=== PATIENT | female | born 1980 | race African-American/Black ===

== ENCOUNTER 2016-09-22 12:58 | Emergency (ER) | payer OTHER ==
[~2016-09-22] VITALS: Ht 157.5 cm; Wt 75.0 kg
[~2016-09-22 12:58] MED LIST: BACT800T5 PO; CHOL50006 PO; DARU600 PO; GABA600T PO; HIV MEDS; INTE200T2 PO; LACT PO; RANI150 PO; RITO100 PO; ZITH250T PO; ZOFR4TAB3 SL; ZOLP5TAB3 PO
[2016-09-22 13:00] VITALS: BP 113/73; PULSE 93; RESP 14; TEMP 97.8; O2SAT 98
[2016-09-22] MEDS ORDERED: RESP: ALBUTEROL 2.5 MG/3 ML NEB (SCH) INH ONE (13:45)
[2016-09-22] MEDS ORDERED: predniSONE 20 MG TAB PO ONE (13:45)
--- NOTE | 2016-09-22 13:49 | PD ---
HPI Chief Complaint: Cold / Flu Symptoms Time Seen by Provider: 13:36 Travel History International Travel<30 days: No Contact w/Intl Traveler<30days: No Traveled to known affect area: No History of Present Illness HPI 36-year-old female presents to the emergency Department with complaint of nasal congestion, cough, wheezing times one week. Denies fever, chills, nausea, vomiting. Reports chest tightness and shortness of breath accompanied by cough exacerbations. Reports history of asthma as a child. Denies history of PE/ DVT. Denies recent travel, trauma, hospitalization, surgery. Denies leg edema. Denies hemoptysis. Reports green colored sputum. Reports throat irritation and bilateral ear pressure. History of pneumonia with hospitalization and intubation. Has tried Sudafed, allergy medication, and nasal spray with no relief of symptoms. No known aggravating or relieving factors. History of HIV. Currently takes medications for HIV. Denies other significant past medical history. Allergies to Phenergan. No other modifying factors or associated signs and symptoms. PFSH Past Medical History Asthma: Yes Autoimmune Disease: Yes (HIV) Cancer: No Cardiovascular Problems: No Diminished Hearing: No Endocrine: No Genitourinary: Yes (urosepsis) Immune Disorder: Yes Musculoskeletal: No Neurologic: Yes Psychiatric: No Reproductive: No Respiratory: Yes (ASTHMA) Immunizations Current: Yes ?: Not LMP: 08/2016 : 2 Para: 2 Tubal Ligation: Yes Past Surgical History Abdominal Surgery: Yes (laproscopic cholecystectomy 2009; 2 ) AICD: No Arteriovenous Shunt: No Section: Yes Cholecystectomy: Yes Insulin Pump: No Joint Replacement: No Pacemaker: No Other Surgery: Yes Social History Alcohol Use: Yes (occasionally drinks alcohol) Tobacco Use: No Substance Use: No Allergies-Medications (Allergen,Severity, Reaction): Coded Allergies: Phenergan (Verified Allergy, Severe, incoherent, 09/22/16) Reported Meds & Prescriptions Reported Meds & Active Scripts Active Doxycycline Hyclate 100 Mg Cap 100 Mg PO BID 10 Days Deltasone (Prednisone) 20 Mg Tab 40 Mg PO DAILY 4 Days start 09/23/2016 Proair Hfa 8.5 GM Inh (Albuterol Sulfate) 90 Mcg/Act Aer 2 Puff INH Q4-6H PRN 108 mcg/actuation Zofran ODT (Ondansetron HCl) 4 Mg Tab 4 Mg SL Q6H PRN FOR NAUSEA/VOMITING Zithromax Z-Abhi (Azithromycin) 250 Mg Tab 250 Mg PO DIRECTED 500 MG (2 TABLETS) PO ON DAY 1, THEN 250 MG (1 TABLET) PO ON DAYS 2 TO 5. Zofran ODT (Ondansetron HCl) 4 Mg Tab 4 Mg SL Q6H PRN FOR NAUSEA/VOMITING Bactrim Ds1 Tab 1 Tab Tab 1 Tab PO BID Zantac 150 Mg Tab (Ranitidine HCl) 150 Mg Tab 150 Mg PO BID 14 Days Acidophilu1 1 Tab Tab 1 Tab PO TID 7 Days Reported Vitamin D (Cholecalciferol) 5,000 Unit Tab 5,000 Unit PO DAILY Zolpidem Tartrate 5 Mg Tab 5 Mg PO HS Gabapentin 600 Mg Tab 600 Mg PO BID Prezista 600 Mg Tab (Darunavir) 600 Mg Tab 600 Mg PO ONCE Norvir (Ritonavir) 100 Mg Cap 100 Mg PO DAILY Intelence (Etravirine) 200 Mg Tab 200 Mg PO BIDPC [Hiv Meds] Review of Systems Except as stated in HPI: all other systems reviewed are Neg Physical Exam Narrative GENERAL: Well-nourished, well-developed female patient, in no acute distress; afebrile, nontoxic-appearing SKIN: Warm and dry. HEAD: Atraumatic. Normocephalic. EYES: Pupils equal and round at 3 mm with brisk reaction. No scleral icterus. No injection or drainage. ENT: Mucosa pink and moist. No erythema or exudates. No uvular edema. No uvular , palatal, or tonsillar deviation. Airway patent. Nares without nasal blood, purulent drainage or septal hematoma. EARS: Bilateral pinnae and external canals appear within normal limits. Bilateral tympanic membranes without erythema, dullness or perforation. NECK: Trachea midline. No lymphadenopathy. CARDIOVASCULAR: Regular rate and rhythm. No murmur appreciated. RESPIRATORY: No accessory muscle use. Lungs with Wheezing throughout to auscultation. Breath sounds equal bilaterally. No retractions or tachypnea. No Audible wheezing noted. GASTROINTESTINAL: Abdomen soft, non-tender, nondistended. Hepatic and splenic margins not palpable. Bowel sounds are active 4 quadrants. MUSCULOSKELETAL: No obvious deformities. No clubbing. No cyanosis. No edema. NEUROLOGICAL: Awake and alert. Oriented 3. No obvious cranial nerve deficits. Motor grossly within normal limits. Normal speech. Moves all extremities. 5/5 strength to all extremities. PSYCHIATRIC: Appropriate mood and affect; insight and judgment normal. Data Data Last Documented VS Vital Signs Date Time Temp Pulse Resp B/P Pulse Ox O2 Delivery O2 Flow Rate FiO2 09/22/16 13:00 97.8 93 14 113/73 98 Orders Chest, Single Ap (09/22/16 13:35) Prednisone (Deltasone) (09/22/16 13:45) Albuterol Neb (Albuterol Neb) (09/22/16 13:45) [facility] Medical Decision Making Medical Screen Exam Complete: Yes Emergency Medical Condition: Yes Medical Record Reviewed: Yes Differential Diagnosis Acute bronchitis, viral illness, asthma exacerbation, pneumonia, sinusitis, less likely PE Narrative Course 36-year-old female physical exam consistent with acute bronchitis. Diffuse wheezing on auscultation of bilateral lung franco. Patient is in no acute distress and her oxygen saturation is 98% on room air. No retractions or tachypnea. No audible wheezing. She does report chest tightness and shortness of breath. The patient denies history of PE or DVT; denies recent surgery or trauma, hemoptysis, exogenous estrogen and leg edema. The patient has no present criteria for pulmonary embolism; using the PERC rule for pulmonary embolism there is no need for further workup for PE. Has history of pneumonia with intubation secondary to delay of patient seeking care. She is afebrile and nontoxic-appearing. She denies fever, chills, nausea, vomiting home. Vital signs stable. Chest x-ray ordered. Albuterol nebulizer x1 and prednisone ordered. 1505: Chest x-ray with no acute findings. Patient reports improvement in symptoms. She denies chest tightness or shortness of breath at this time. Lungs are clear and equal bilaterally. Doxycycline, Tessalon Perles, pro-air inhaler, Deltasone prescribed for home. Patient is medically cleared and stable for discharge. Discussed reasons to return to the emergency department. Instructed patient to follow up with primary care provider. Patient agrees with treatment plan. The patients vital signs are stable and the patient is stable for outpatient follow-up and treatment. Patient discharged home, stable and in no acute distress. Diagnosis Primary Impression: Bronchitis Referrals: Primary Care Physician Patient Instructions: Acute Bronchitis (ED), General Instructions Departure Forms: Tests/Procedures, Work Release Enter return to work date: Sep 24, 2016 Additional Instructions: Use albuterol inhaler as needed for shortness of breath and wheezing Take oral steroids as prescribed and complete full course [id number] antihistamines or decongestants instructed and as needed for symptom management Increase fluid intake to prevent dehydration avoid triggers such as second hand smoke, dust, known allergens Follow-up with primary care provider within 1 to 2 days Return to emergency department immediately with worsening of symptoms Med/Other Pt SpecificInfo: Prescription(s) given Scripts Benzonatate (Tessalon Perles)100 Mg [id number] Mg PO TID PRN (COUGH) #21 CAP Ref 0 Prov:Maribel Dillard 09/22/16 Doxycycline Hyclate 100 Mg [id number] Mg PO BID 10 Days Ref 0 Prov:Maribel Dillard 09/22/16 Prednisone (Deltasone)20 Mg Tab40 Mg PO DAILY 4 Days Ref 0 start 09/23/2016 Prov:Maribel Dillard 09/22/16 Albuterol 8.5 GM Inh (Proair Hfa 8.5 GM Inh)90 Mcg/Act Aer2 Puff INH Q4-6H PRN ( SOB/WHEEZING) #1 INHALER Ref 0 108 mcg/actuation Prov:Maribel Dillard 09/22/16 Disposition: 01 DISCHARGE HOME Condition: Stable Maribel Dillard Sep 22, 2016 13:49
--- NOTE | 2016-09-22 14:57 | RADRPT ---
EXAM DATE/TIME: 09/22/2016 14:23 [facility] COMPARISON: CT ABDOMEN & PELVIS W/O CONTRAST, September 27, 2015, 3:39. CHEST SINGLE AP, September 27, 2015, 2:22. INDICATIONS : Shortness of breath, wheezing, and cold symptoms. MEDICAL HISTORY : Asthma. SURGICAL HISTORY : None. ENCOUNTER: Initial ACUITY: 1 week PAIN SCORE: 0/10 LOCATION: Bilateral chest FINDINGS: A single view of the chest demonstrates the lungs to be symmetrically aerated without evidence of mas s, infiltrate or effusion. The cardiomediastinal contours are unremarkable. Osseous structures are intact. CONCLUSION: Normal examination. Sadiq Quispe Jr., MD on September 22, 2016 at 14:53 Board Certified Radiologist. This report was verified electronically.
[2016-09-22] MEDS ORDERED: DOXY100C PO (15:01)
[2016-09-22] MEDS ORDERED: ALBUAER3 INH (15:01)
[2016-09-22] MEDS ORDERED: PRED-503 PO (15:01)
[2016-09-22] MEDS ORDERED: BENZ100 PO (15:05)
[2016-09-23] MEDS ORDERED: GABA600T PO (18:21)
[2016-09-23] MEDS ORDERED: RALT400 PO (18:21)
[2016-09-23] MEDS ORDERED: ZOLP5TAB3 PO (18:21)
[2016-09-23] MEDS ORDERED: RITO100 PO (18:21)
[2016-09-23] MEDS ORDERED: PREZ600T2 PO (18:21)
[2016-09-23] MEDS ORDERED: INTE200T PO (18:21)
[2016-09-23] MEDS ORDERED: DICL75TA PO (18:53)
[2016-09-23] MEDS ORDERED: ZOFR4TAB PO (18:53)
== END 2016-09-22 15:33 | disposition home or self-care (01) ==
LOC: NEPB 12:58
DX: J40 Bronchitis, not specified as acute or chronic (principal); R11.2 Nausea with vomiting, unspecified; R05 Cough; J45.909 Unspecified asthma, uncomplicated
CPT/HCPCS: 71010; 94664; 99283; J7512; J7613

== ENCOUNTER 2016-09-23 16:56 | Emergency (ER) | payer OTHER ==
[~2016-09-23] VITALS: Ht 157.5 cm; Wt 73.0 kg
[~2016-09-23 16:56] MED LIST changes: +ALBUAER3 INH; +BENZ100 PO; +DOXY100C PO; +PRED-503 PO
[2016-09-23 16:58] VITALS: BP 121/84; PULSE 90; RESP 16; TEMP 97.9; O2SAT 97
[2016-09-23] MEDS ORDERED: LIDOCAINE VISCOUS 2% SOLN 15 ML UDC PO ONE (17:15)
[2016-09-23] MEDS ORDERED: ALUMINUM/MAGNESIUM/SIMETH 30 ML CUP PO ONE (17:15)
--- NOTE | 2016-09-23 17:31 | PD ---
HPI Chief Complaint: GI Complaint Time Seen by Provider: 17:26 Travel History International Travel<30 days: No Contact w/Intl Traveler<30days: No Traveled to known affect area: No History of Present Illness HPI 36-year-old female that presents to the ED for evaluation of nausea and vomiting. Per patient she was sitting 5 spoons of rice and then she felt nauseous and she vomited. Per patient at that same time she developed some severe pain in her chest. Per patient she was seen here yesterday for a cold- like symptom and she was doing is bronchitis and treated with doxycycline, prednisone and Tessalon Perles. Per patient she's been compliant with the medications that she's never had anything like this before. Per patient she was concerned because at some point she was told that she had thrush and she had a similar episode that got better after she took the medication. She denies any itching or pain on the throat. Per patient she believes that she might have something still stuck on the throat at that she is able to swallow her saliva and fluids. She does not feel nauseous. She denies any abdominal pain. Per patient most of the pain is on the right flank as well as the mid chest. She denies any blood. She still has some cough and congestion but no other medical problem. Denies any bowel movement or urinary issues. PFSH Past Medical History Asthma: Yes Autoimmune Disease: Yes (HIV) Cancer: No Cardiovascular Problems: No Diabetes: No Diminished Hearing: No Endocrine: No Gastrointestinal Disorders: No Genitourinary: Yes (urosepsis) Immune Disorder: Yes Implanted Vascular Access Dvce: No Musculoskeletal: No Neurologic: Yes Psychiatric: No Reproductive: No Respiratory: Yes (ASTHMA) Immunizations Current: Yes Tetanus Vaccination: > 5 Years Influenza Vaccination: No ?: Not LMP: 09/09/16 : 2 Para: 2 Tubal Ligation: Yes Past Surgical History Abdominal Surgery: Yes (laproscopic cholecystectomy 2009; 2 ) AICD: No Arteriovenous Shunt: No Section: Yes Cholecystectomy: Yes Insulin Pump: No Joint Replacement: No Pacemaker: No Other Surgery: Yes Social History Alcohol Use: Yes (occasionally drinks alcohol) Tobacco Use: No Substance Use: No Allergies-Medications (Allergen,Severity, Reaction): Coded Allergies: Phenergan (Verified Allergy, Severe, incoherent, 09/23/16) Reported Meds & Prescriptions Reported Meds & Active Scripts Active Diclofenac Sodium DR (Diclofenac Sodium) 75 Mg Tabdr 75 Mg PO BID PRN Zofran (Ondansetron HCl) 4 Mg Tab 4 Mg PO Q6HR PRN Tessalon Perles (Benzonatate) 100 Mg Cap 100 Mg PO TID PRN Doxycycline Hyclate 100 Mg Cap 100 Mg PO BID 10 Days Deltasone (Prednisone) 20 Mg Tab 40 Mg PO DAILY 4 Days start 09/23/2016 Proair Hfa 8.5 GM Inh (Albuterol Sulfate) 90 Mcg/Act Aer 2 Puff INH Q4-6H PRN 108 mcg/actuation Reported Prezista (Darunavir) 600 Mg Tab 600 Mg PO DAILY Intelence (Etravirine) 200 Mg Tab 200 Mg PO BIDPC Gabapentin 600 Mg Tab 600 Mg PO BID Norvir (Ritonavir) 100 Mg Cap 100 Mg PO DAILY Zolpidem (Zolpidem Tartrate) 5 Mg Tab 5 Mg PO HS Isentress (Raltegravir) 400 Mg Tab 400 Mg PO BID Review of Systems Except as stated in HPI: all other systems reviewed are Neg Physical Exam Narrative GENERAL: SKIN: Warm and dry. HEAD: Atraumatic. Normocephalic. EYES: Pupils equal and round. No scleral icterus. No injection or drainage. ENT: No nasal bleeding or discharge. Mucous membranes pink and moist. Tongue is midline. No uvula deviation. NECK: Trachea midline. No JVD. CARDIOVASCULAR: Regular rate and rhythm. No murmurs, S3, S4. RESPIRATORY: No accessory muscle use. Clear to auscultation. Breath sounds equal bilaterally. GASTROINTESTINAL: Abdomen soft, non-tender, nondistended. Hepatic and splenic margins not palpable. MUSCULOSKELETAL: Extremities without clubbing, cyanosis, or edema. No obvious deformities. Full range of motion of the upper and lower extremities and alert. 2+ pulses bilaterally. NEUROLOGICAL: Awake and alert. No obvious cranial nerve deficits. Motor grossly within normal limits. Five out of 5 muscle strength in the arms and legs. Normal speech. PSYCHIATRIC: Appropriate mood and affect; insight and judgment normal. Data Data Last Documented VS Vital Signs Date Time Temp Pulse Resp B/P Pulse Ox O2 Delivery O2 Flow Rate FiO2 09/23/16 17:35 85 18 121/82 97 Room Air 09/23/16 16:58 97.9 Orders Electrocardiogram (09/23/16 17:09) Complete Blood Count With Diff (09/23/16 17:09) Comprehensive Metabolic Panel (09/23/16 17:09) Lipase (09/23/16 17:09) Chest, Pa & Lat (09/23/16 17:09) Iv Access Insert/Monitor (09/23/16 17:09) Lactic Acid (09/23/16 17:09) Al-Mag Hy-Si 40-40-4 Mg/Ml Liq (Mag-Al P (09/23/16 17:15) Lidocaine 2% Viscous (Xylocaine 2% Visco (09/23/16 17:15) Labs Laboratory Tests Test 09/23/16 17:35 White Blood Count 10.4 TH/MM3 Red Blood Count 4.97 MIL/MM3 Hemoglobin 12.4 GM/DL Hematocrit 39.3 % Mean Corpuscular Volume 79.0 FL Mean Corpuscular Hemoglobin 24.9 PG Mean Corpuscular Hemoglobin 31.5 % Concent Red Cell Distribution Width 22.2 % Platelet Count 323 TH/MM3 Mean Platelet Volume 8.7 FL Neutrophils (%) (Auto) 57.9 % Lymphocytes (%) (Auto) 29.9 % Monocytes (%) (Auto) 8.5 % Eosinophils (%) (Auto) 3.0 % Basophils (%) (Auto) 0.7 % Neutrophils # (Auto) 6.0 TH/MM3 Lymphocytes # (Auto) 3.1 TH/MM3 Monocytes # (Auto) 0.9 TH/MM3 Eosinophils # (Auto) 0.3 TH/MM3 Basophils # (Auto) 0.1 TH/MM3 CBC Comment AUTO DIFF Differential Comment AUTO DIFF CONFIRMED Platelet Estimate NORMAL Platelet Morphology Comment NORMAL Ovalocytes 1+ Sodium Level 139 MEQ/L Potassium Level 3.9 MEQ/L Chloride Level 107 MEQ/L Carbon Dioxide Level 24.4 MEQ/L Anion Gap 8 MEQ/L Blood Urea Nitrogen 9 MG/DL Creatinine 0.99 MG/DL Estimat Glomerular Filtration 76 ML/MIN Rate Random Glucose 87 MG/DL Lactic Acid Level 1.2 mmol/L Calcium Level 8.7 MG/DL Total Bilirubin 0.3 MG/DL Aspartate Amino Transf 23 U/L (AST/SGOT) Alanine Aminotransferase 15 U/L (ALT/SGPT) Alkaline Phosphatase 97 U/L Total Protein 8.5 GM/DL Albumin 3.8 GM/DL Lipase 346 U/L MDM Medical Decision Making Medical Screen Exam Complete: Yes Emergency Medical Condition: Yes Medical Record Reviewed: Yes Interpretation(s) CBC & BMP Diagram 09/23/16 17:35 lfts WNL lipase WNL Last Impressions Chest X-Ray 09/23/16 1709 Signed Impressions: Service Date/Time: Friday, September 23, 2016 17:33 - CONCLUSION: No acute pulmonary disease. Sadiq Osorio MD Differential Diagnosis Chest pain versus nausea and vomiting versus food poisoning versus gastroenteritis versus thrush versus pneumonia versus aspiration pneumonia Narrative Course 36-year-old female that presents to the ED for evaluation of vomiting times one. Patient was properly examined and was found to have signs and symptoms of unclear etiology at this time. Patient does have a history of HIV. Recommendation at this time as the chest x-ray and some blood work to make sure there is no sign of acute disease. Patient was given Zofran as well as GI cocktail. Patient is agreeable with this. Labs and imaging showed no obvious sign of acute disease. At this time I do not see any sign of thrush. Patient only had one episode of vomiting. Patient will be given Zofran prescription for Flexeril for pain for her chest pain which appears to be muscular. Patient is agreeable with plan. Patient was told to continue taking her medications as every taking for her bronchitis. Follow-up with PCP. Unclear as to the reason why she threw up. But I do not see any sign of acute disease at this time I do not believe this will likely resolve on its own. She was told that if anything worsens she is to come back. See ED worsening symptoms. Diagnosis Primary Impression: Bronchitis Additional Impressions: Vomiting Qualified Code: R11.11 - Non-intractable vomiting without nausea, unspecified vomiting type Costochondritis Patient Instructions: General Instructions Additional Instructions: Your labs and imaging were essentially unremarkable. Continue taking medications as prescribed yesterday. Take Zofran and diclofenac sodium to help with pain as well as nausea he needed. Follow up with PCP. See ED worsening symptoms. Med/Other Pt SpecificInfo: Prescription(s) given Scripts Diclofenac Sodium DR 75 Mg Tabdr75 Mg PO BID PRN (PAIN SCALE 1 TO 10) #20 TAB Ref 0 Prov:Grace Aquino DO 1/28/17 Ondansetron (Zofran)4 Mg Tab4 Mg PO Q6HR PRN (NAUSEA OR VOMITING) #20 TAB Prov:Grace Aquino DO 09/23/16 Disposition: 01 DISCHARGE HOME Condition: Stable Charles Amezquita Sep 23, 2016 17:31
[2016-09-23 17:35] VITALS: BP 121/82; PULSE 85; RESP 18; O2SAT 97
--- NOTE | 2016-09-23 17:37 | RADRPT ---
EXAM DATE/TIME: 09/23/2016 17:33 [facility] COMPARISON: CHEST PA & LAT, May 03, 2016, 15:15. INDICATIONS : Shortness of breath and chest pain. MEDICAL HISTORY : Diabetes mellitus type II. Asthma. Bronchitis. SURGICAL HISTORY : None. ENCOUNTER: Initial ACUITY: 1 week PAIN SCORE: 4/10 LOCATION: Right upper chest FINDINGS: PA and lateral views of the chest demonstrate the lungs to be symmetrically aerated without evidence of mass, infiltrate or effusion. The cardiomediastinal contours are unremarkable. Osseous structure s are intact. CONCLUSION: No acute pulmonary disease. Sadiq Osorio MD on September 23, 2016 at 17:36 Board Certified Radiologist. This report was verified electronically.
[2016-09-23 18:05] LABS: BASOPHIL # 0.1 TH/MM3 (0-0.2); BASOPHIL % 0.7 % (0.0-2.0); EOSINOPHIL # 0.3 TH/MM3 (0-0.4); HEMATOCRIT 39.3 % (35.0-46.0); LYMPH % 29.9 % (9.0-44.0); LYMPHOCYTE # 3.1 TH/MM3 (1.0-4.8); MEAN CORPUSCULAR HEMOGLOBIN 24.9 PG (27.0-34.0); MEAN CORPUSCULAR HGB CONC 31.5 % (32.0-36.0); MONO % 8.5 % (0.0-8.0); NEUT % 57.9 % (16.0-70.0); PLATELET COUNT 323 TH/MM3 (150-450); RED BLOOD COUNT 4.97 MIL/MM3 (4.00-5.30); RED CELL DISTRIBUTION WIDTH 22.2 % (11.6-17.2); WHITE BLOOD COUNT 10.4 TH/MM3 (4.0-11.0)
[2016-09-23 18:09] LABS: HEMO FLAGS AUTO DIFF
[2016-09-23] MEDS ORDERED: RITO100 PO (18:21)
[2016-09-23] MEDS ORDERED: INTE200T PO (18:21)
[2016-09-23] MEDS ORDERED: GABA600T PO (18:21)
[2016-09-23] MEDS ORDERED: PREZ600T2 PO (18:21)
[2016-09-23] MEDS ORDERED: ZOLP5TAB3 PO (18:21)
[2016-09-23] MEDS ORDERED: RALT400 PO (18:21)
[2016-09-23 18:48] LABS: ALKALINE PHOSPHATASE 97 U/L (45-117); ALT (GPT) 15 U/L (10-53); ANION GAP 8 MEQ/L (5-15); AST (GOT) 23 U/L (15-37); BICARBONATE 24.4 MEQ/L (21.0-32.0); BLOOD UREA NITROGEN 9 MG/DL (7-18); CHLORIDE 107 MEQ/L (98-107); GLOMERULAR FILTRATION RATE 76 ML/MIN (>89); OVALOCYTES 1+ (NORMAL); PLATELET ESTIMATE SMEAR NORMAL (NORMAL); PLATELET MORPHOLOGY NORMAL (NORMAL); SCAN/DIFF AUTO DIFF CONFIRMED; SODIUM (NA) 139 MEQ/L (136-145); TOTAL BILIRUBIN ADULT 0.3 MG/DL (0.2-1.0)
[2016-09-23 18:49] LABS: POTASSIUM 3.9 MEQ/L (3.5-5.1)
[2016-09-23] MEDS ORDERED: ZOFR4TAB PO (18:53)
[2016-09-23] MEDS ORDERED: DICL75TA PO (18:53)
[2016-09-23 20:10] VITALS: BP 121/83; PULSE 78; RESP 18; O2SAT 98
[2016-09-23 20:11] VITALS: BP 121/83
--- NOTE | 2016-09-24 13:22 | EKG ---
Date Performed: 09/23/2016 Time Performed: 18:37:58 PTAGE: 36 years EKG: Sinus rhythm POSSIBLE LEFT ATRIAL ENLARGEMENT BORDERLINE ECG Compared to prior tracing no significant change PREVIOUS TRACING : 09/27/2015 02.39 DOCTOR: Phill James Interpretating Date/Time 09/24/2016 13:17:39
== END 2016-09-23 20:38 | disposition home or self-care (01) ==
LOC: NEPC 16:56
DX: J40 Bronchitis, not specified as acute or chronic (principal); R11.11 Vomiting without nausea; R07.9 Chest pain, unspecified
CPT/HCPCS: 71020; 80053; 83605; 83690; 85025; 93005

== ENCOUNTER 2017-03-22 10:59 | Emergency (ER) | payer OTHER ==
[~2017-03-22] VITALS: Ht 157.5 cm; Wt 75.0 kg
[~2017-03-22 10:59] MED LIST changes: -BACT800T5 PO; -CHOL50006 PO; -DARU600 PO; +DICL75TA PO; -HIV MEDS; +INTE200T PO; -INTE200T2 PO; -LACT PO; +PREZ600T2 PO; +RALT400 PO; -RANI150 PO; -ZITH250T PO; +ZOFR4TAB PO; -ZOFR4TAB3 SL
[2017-03-22 11:00] VITALS: BP 118/79; PULSE 110; RESP 20; TEMP 99.2; O2SAT 99
--- NOTE | 2017-03-22 11:16 | PD ---
Physical Exam Time Seen by Provider: 11:14 Narrative 37 y/o female here with nausea, diarrhea, for 3 days, vomiting today as well as an itchy throat and nasal congestion. Vital signs reviewed. Seen at triage desk. Awaiting bed placement. Data Data Last Documented VS Vital Signs Date Time Temp Pulse Resp B/P Pulse Ox O2 Delivery O2 Flow Rate FiO2 03/22/17 11:00 99.2 110 20 118/79 99 Room Air [facility] Medical Record Reviewed: Yes Supervised Visit with DOLORES: Bruce Hernandez Mar 22, 2017 11:16
[2017-03-22 11:42] LABS: AUTOMATED NEUTROPHIL # 6.8 TH/MM3 (1.8-7.7); BASOPHIL % 0.4 % (0.0-2.0); EOSINOPHIL # 0.3 TH/MM3 (0-0.4); HEMATOCRIT 38.5 % (35.0-46.0); HEMO FLAGS DIFF FINAL; LYMPH % 9.2 % (9.0-44.0); LYMPHOCYTE # 0.8 TH/MM3 (1.0-4.8); MEAN CELL VOLUME 81.3 FL (80.0-100.0); MEAN CORPUSCULAR HEMOGLOBIN 25.6 PG (27.0-34.0); MEAN CORPUSCULAR HGB CONC 31.5 % (32.0-36.0); MONO % 5.8 % (0.0-8.0); NEUT % 81.6 % (16.0-70.0); PLATELET COUNT 299 TH/MM3 (150-450); RED BLOOD COUNT 4.73 MIL/MM3 (4.00-5.30); RED CELL DISTRIBUTION WIDTH 16.6 % (11.6-17.2); WHITE BLOOD COUNT 8.3 TH/MM3 (4.0-11.0)
[2017-03-22 11:48] LABS: BACTERIA, URINE OCC /hpf; BLOOD, URINE SMALL (NEG); GLUCOSE,URINE NEG (NEG); KETONE, URINE NEG (NEG); MUCUS URINE MOD /lpf (OCC); NITRITE,URINE NEG (NEG); PH, URINE 6.5 (5.0-8.5); SQUAMOUS EPITHELIAL CELL URINE 5 /hpf (0-5); URINE COLOR YELLOW (YELLW/STRAW)
[2017-03-22 11:50] LABS: COMMENT (UR) CULT NOT INDICATED; CULTURE IF INDICATED CULT NOT INDICATED
[2017-03-22 11:56] LABS: BICARBONATE 23.5 MEQ/L (21.0-32.0); POTASSIUM 3.7 MEQ/L (3.5-5.1)
[2017-03-22] MEDS ORDERED: OMEP40CA2 PO (12:44)
--- NOTE | 2017-03-22 12:58 | PD ---
HPI Chief Complaint: Cold / Flu Symptoms Time Seen by Provider: 12:55 Travel History International Travel<30 days: No Contact w/Intl Traveler<30days: No Traveled to known affect area: No History of Present Illness HPI 37-year-old female presents to the emergency department for evaluation for flulike symptoms for 2 days. Patient states this started with bilateral ear pain and an itchy throat. She states that this then progressed to nausea and she has vomited twice today. She also reports a headache that started gradually as well. The patient states she also has body aches. She denies any fevers. No chest pain or shortness of breath. Patient reports history of HIV and is on antivirals. She states her current antiviral load is undetectable. She also reports a history of gastric ulcers. PFSH Past Medical History Asthma: Yes Autoimmune Disease: Yes (HIV) Cancer: No Cardiovascular Problems: No Diabetes: No Diminished Hearing: No Endocrine: No Gastrointestinal Disorders: No Genitourinary: Yes (urosepsis) Immune Disorder: Yes Implanted Vascular Access Dvce: No Musculoskeletal: No Neurologic: Yes Psychiatric: No Reproductive: No Respiratory: Yes (ASTHMA) Immunizations Current: Yes ?: Not LMP: 02/26/2017 : 2 Para: 2 Tubal Ligation: Yes Past Surgical History Abdominal Surgery: Yes (laproscopic cholecystectomy 2009; 2 ) AICD: No Arteriovenous Shunt: No Section: Yes Cholecystectomy: Yes Insulin Pump: No Joint Replacement: No Pacemaker: No Other Surgery: Yes Social History Alcohol Use: Yes (occasionally drinks alcohol) Tobacco Use: No Substance Use: No Allergies-Medications (Allergen,Severity, Reaction): Coded Allergies: Phenergan (Verified Allergy, Severe, incoherent, 09/23/16) Reported Meds & Prescriptions Reported Meds & Active Scripts Active Ondansetron Odt 4 Mg Tab 4 Mg SL Q6HR PRN Proair Hfa 8.5 GM Inh (Albuterol Sulfate) 90 Mcg/Act Aer 2 Puff INH Q4-6H PRN 108 mcg/actuation Reported Omeprazole 40 Mg Cap 40 Mg PO DAILY Prezista (Darunavir) 600 Mg Tab 600 Mg PO DAILY Intelence (Etravirine) 200 Mg Tab 200 Mg PO BIDPC Gabapentin 600 Mg Tab 600 Mg PO BID Norvir (Ritonavir) 100 Mg Cap 100 Mg PO DAILY Isentress (Raltegravir) 400 Mg Tab 400 Mg PO BID Review of Systems Except as stated in HPI: all other systems reviewed are Neg Physical Exam Narrative GENERAL: Well-nourished, well-developed female patient, ambulatory. Afebrile. SKIN: Focused skin assessment warm/dry. HEAD: Normocephalic. Atraumatic. EYES: No scleral icterus. No injection or drainage. ENT: Mucosa pink and moist. No erythema or exudates. No uvular edema. No uvular , palatal, or tonsillar deviation. Airway patent. Nasal turbinates appear normal without nasal blood, purulent drainage or septal hematoma. Bilateral tympanic membranes are clear without erythema or perforation. NECK: Supple, trachea midline. No JVD or lymphadenopathy. No nuchal rigidity. CARDIOVASCULAR: Regular rate and rhythm without murmurs, gallops, or rubs. RESPIRATORY: Breath sounds equal bilaterally. No accessory muscle use. Lungs sounds are clear to auscultation. GASTROINTESTINAL: Abdomen soft, non-tender, nondistended. MUSCULOSKELETAL: No cyanosis, or edema. BACK: Nontender without obvious deformity. No CVA tenderness. Data Data Last Documented VS Vital Signs Date Time Temp Pulse Resp B/P Pulse Ox O2 Delivery O2 Flow Rate FiO2 03/22/17 14:10 103 03/22/17 11:00 99.2 20 118/79 99 Room Air Orders Complete Blood Count With Diff (03/22/17 11:17) Basic Metabolic Panel (Bmp) (03/22/17 11:17) Urinalysis - C+S If Indicated (03/22/17 11:17) Ed Urine Pregnancytest Poc (03/22/17 11:17) Influenzae A/B Antigen (03/22/17 12:52) Sodium Chlor 0.9% 1000 Ml Inj (Ns 1000 M (03/22/17 13:00) Prochlorperazine Inj (Compazine Inj) (03/22/17 13:00) Hepatic Functional Panel (03/22/17 12:52) Lipase (03/22/17 12:52) Diphenhydramine Inj (Benadryl Inj) (03/22/17 13:00) Labs Laboratory Tests Test 03/22/17 11:30 White Blood Count 8.3 TH/MM3 Red Blood Count 4.73 MIL/MM3 Hemoglobin 12.1 GM/DL Hematocrit 38.5 % Mean Corpuscular Volume 81.3 FL Mean Corpuscular Hemoglobin 25.6 PG Mean Corpuscular Hemoglobin 31.5 % Concent Red Cell Distribution Width 16.6 % Platelet Count 299 TH/MM3 Mean Platelet Volume 8.4 FL Neutrophils (%) (Auto) 81.6 % Lymphocytes (%) (Auto) 9.2 % Monocytes (%) (Auto) 5.8 % Eosinophils (%) (Auto) 3.0 % Basophils (%) (Auto) 0.4 % Neutrophils # (Auto) 6.8 TH/MM3 Lymphocytes # (Auto) 0.8 TH/MM3 Monocytes # (Auto) 0.5 TH/MM3 Eosinophils # (Auto) 0.3 TH/MM3 Basophils # (Auto) 0.0 TH/MM3 CBC Comment DIFF FINAL Differential Comment Urine Color YELLOW Urine Turbidity HAZY Urine pH 6.5 Urine Specific [place] 1.030 Urine Protein 30 mg/dL Urine Glucose (UA) NEG mg/dL Urine Ketones NEG mg/dL Urine Occult Blood SMALL Urine Nitrite NEG Urine Bilirubin NEG Urine Urobilinogen LESS THAN 2.0 MG/DL Urine Leukocyte Esterase NEG Urine RBC 6 /hpf Urine WBC 6 /hpf Urine Squamous Epithelial 5 /hpf Cells Urine Bacteria OCC /hpf Urine Mucus MOD /lpf Microscopic Urinalysis Comment CULT NOT INDICATED Sodium Level 138 MEQ/L Potassium Level 3.7 MEQ/L Chloride Level 107 MEQ/L Carbon Dioxide Level 23.5 MEQ/L Anion Gap 8 MEQ/L Blood Urea Nitrogen 9 MG/DL Creatinine 0.80 MG/DL Estimat Glomerular Filtration 97 ML/MIN Rate Random Glucose 98 MG/DL Calcium Level 9.0 MG/DL Total Bilirubin 0.2 MG/DL Direct Bilirubin 0.1 MG/DL Indirect Bilirubin 0.1 MG/DL Aspartate Amino Transf 29 U/L (AST/SGOT) Alanine Aminotransferase 19 U/L (ALT/SGPT) Alkaline Phosphatase 119 U/L Total Protein 9.2 GM/DL Albumin 4.2 GM/DL Lipase 366 U/L [facility] Medical Decision Making Medical Screen Exam Complete: Yes Emergency Medical Condition: Yes Medical Record Reviewed: Yes Differential Diagnosis Viral syndrome versus gastroenteritis versus electrolyte abnormality versus pancreatitis Narrative Course 37-year-old female presents to the emergency department for evaluation of flulike symptoms for 2 days. CBC shows normal WBC of 8.3. BMP is unremarkable. UA shows 6 to CBC, 56, epithelial cells, culture not indicated. LFTs, lipase, and influenza are ordered and pending. Patient is given normal saline 1 L IV bolus, Compazine 10 mg IV, Benadryl 25 mg IV. LFTs show no acute abnormality. Lipase is 366. Influenza is negative. Upon reassessment, patient states she is feeling better. Symptoms and physical are consistent with a viral illness. She is instructed to rest, follow with her primary care physician. She'll be discharged prescription for Zofran. She is to return for any acute worsening of symptoms. Patient verbalizes agreement and understanding. The patient was discharged in stable condition with instructions, including return instructions and follow up instructions. Diagnosis Primary Impression: Viral illness Referrals: Primary Care Physician 2 days Patient Instructions: General Instructions, Viral Syndrome (ED) Additional Instructions: Rest. Drink plenty of fluids. Take Zofran as directed as needed for nausea/vomiting. Follow up with primary care physician. Return to the emergency department for any acute, worsening of symptoms. Med/Other Pt SpecificInfo: Prescription(s) given Scripts Ondansetron Odt 4 Mg Tab4 Mg SL Q6HR PRN (Nausea/Vomiting) #16 TAB Ref 0 Prov:Gisel Watson 03/22/17 Disposition: 01 DISCHARGE HOME Condition: Stable Gisel Watson Mar 22, 2017 12:58
[2017-03-22] MEDS ORDERED: SODIUM CHLOR 0.9% 1000 ML INJ 1,000 ML IV ONE (13:00)
[2017-03-22] MEDS ORDERED: PROCHLORPERAZINE INJ 10 MG/2 ML VIAL IV PUSH ONE (13:00)
[2017-03-22] MEDS ORDERED: diphenhydrAMINE HCL 50 MG/ML VIAL IV PUSH ONE (13:00)
[2017-03-22 13:46] LABS: INDIRECT BILIRUBIN 0.1 MG/DL (0.0-0.8); TOTAL BILIRUBIN ADULT 0.2 MG/DL (0.2-1.0)
[2017-03-22 14:10] VITALS: PULSE 103
[2017-03-22] MEDS ORDERED: ONDA4TAB7 SL (14:10)
== END 2017-03-22 14:26 | disposition home or self-care (01) ==
LOC: NEPD 10:59
DX: B34.9 Viral infection, unspecified (principal); H92.03 Otalgia, bilateral; J45.909 Unspecified asthma, uncomplicated
CPT/HCPCS: 80048; 80076; 81001; 83690; 84703; 85025; 87804; 96361; 96374; 96375; 99284; J0780; J1200; J7030

== ENCOUNTER 2017-07-25 14:25 | Emergency (ER) | payer MEDICAID, OTHER ==
[~2017-07-25] VITALS: Ht 157.5 cm; Wt 34.1 kg
[~2017-07-25 14:25] MED LIST changes: -BENZ100 PO; +DARU600 PO; -DICL75TA PO; -DOXY100C PO; -INTE200T PO; +INTE200T2 PO; +OMEP40CA2 PO; +ONDA4TAB7 SL; -PRED-503 PO; -PREZ600T2 PO; -ZOFR4TAB PO; -ZOLP5TAB3 PO
[2017-07-25 14:26] VITALS: BP 128/76; PULSE 93; RESP 20; TEMP 98.7; O2SAT 100
--- NOTE | 2017-07-25 17:24 | PD ---
HPI . Upper respiratory symptoms Chief Complaint: Cold / Flu Symptoms Time Seen by Provider: 16:40 Travel History International Travel<30 days: No Contact w/Intl Traveler<30days: No Traveled to known affect area: No History of Present Illness HPI 37 year old female patient presents to the emergency department for evaluation of bilateral ear pain and sore throat x 2 days. Patient denies any cough, nausea , vomiting, chest pain, shortness of breath, abdominal pain or lightheadedness. Patient is HIV positive and takes her HAART medication as prescribed and her current viral load is undetectable. Patient denies any fevers or chills however she's been taking ibuprofen [id number] for pain management. PFSH Past Medical History Asthma: Yes Autoimmune Disease: Yes (HIV) Cancer: No Cardiovascular Problems: No Diabetes: No Diminished Hearing: No Endocrine: No Gastrointestinal Disorders: No Genitourinary: Yes (urosepsis) Immune Disorder: Yes Implanted Vascular Access Dvce: No Musculoskeletal: No Neurologic: Yes Psychiatric: No Reproductive: No Respiratory: Yes (ASTHMA) Immunizations Current: Yes : 2 Para: 2 Tubal Ligation: Yes Past Surgical History Abdominal Surgery: Yes (laproscopic cholecystectomy 2009; 2 ) AICD: No Arteriovenous Shunt: No Section: Yes Cholecystectomy: Yes Insulin Pump: No Joint Replacement: No Pacemaker: No Other Surgery: Yes Social History Alcohol Use: Yes (occasionally drinks alcohol) Tobacco Use: No Substance Use: No Allergies-Medications (Allergen,Severity, Reaction): Coded Allergies: promethazine (Unverified Allergy, Severe, incoherent, 07/25/17) Reported Meds & Prescriptions Reported Meds & Active Scripts Active Proair Hfa 8.5 GM Inh (Albuterol Sulfate) 90 Mcg/Act Aer 2 Puff INH Q4-6H PRN 108 mcg/actuation Reported Omeprazole 40 Mg Cap 40 Mg PO DAILY Prezista (Darunavir) 600 Mg Tab 600 Mg PO DAILY Intelence (Etravirine) 200 Mg Tab 200 Mg PO BIDPC Gabapentin 600 Mg Tab 600 Mg PO BID Norvir (Ritonavir) 100 Mg Cap 100 Mg PO DAILY Isentress (Raltegravir) 400 Mg Tab 400 Mg PO BID Review of Systems Except as stated in HPI: all other systems reviewed are Neg Physical Exam Narrative GENERAL: Well-nourished, well-developed 37-year-old female patient in no acute distress. Nontoxic appearing. SKIN: Focused skin assessment warm/dry. HEAD: Normocephalic. Atraumatic. EYES: No scleral icterus. No injection or drainage. EARS: Bilateral pinnae and external canals appear within normal limits. Bilateral tympanic membranes without erythema, dullness or perforation. ENT: Mucosa pink and moist. No erythema or exudates. No uvular edema. No uvular , palatal, or tonsillar deviation. Airway patent. Nasal turbinates appear hypertrophic without nasal blood, purulent drainage or septal hematoma. THROAT: No pharyngeal injection, exudates, or tonsillar hypertrophy. Airway is patent. NECK: Supple, trachea midline. No JVD or lymphadenopathy. CARDIOVASCULAR: Regular rate and rhythm without murmurs, gallops, or rubs. RESPIRATORY: Breath sounds equal bilaterally. No accessory muscle use. GASTROINTESTINAL: Abdomen soft, non-tender, nondistended. MUSCULOSKELETAL: No cyanosis, or edema. Data Data Last Documented VS Vital Signs Date Time Temp Pulse Resp B/P (MAP) Pulse Ox O2 Delivery O2 Flow Rate FiO2 07/25/17 14:26 98.7 93 20 128/76 (93) 100 Room Air Orders Orders Influenzae A/B Antigen (07/25/17 17:08) MDM Medical Decision Making Medical Screen Exam Complete: Yes Emergency Medical Condition: Yes Differential Diagnosis Differential diagnosis includes but not limited to otitis media, pharyngitis, upper respiratory infection, influenza Narrative Course 37-year-old female patient presents emergency department for evaluation of bilateral ear pain and sore throat 2 days. Patient is HIV positive with undetectable viral load due to antiviral regimen. Denies any fever or chills but has been taking ibuprofen around the clock for pain management. Upon physical assessment patient has nasal congestion and ear congestion. There is no pharyngeal injection or signs of infection. Patient is discharged home with instructions to start Claritin in the morning Benadryl at night until the congestion resolves. Patient instructed to return the emergency Department with any worsening condition but otherwise follow up with primary care. Diagnosis Primary Impression: Nasal congestion Additional Impression: Ear congestion Qualified Codes: H93.8X3 - Other specified disorders of ear, bilateral Referrals: Primary Care Physician Patient Instructions: Earache (ED), General Instructions Additional Instructions: Please return to emergency department if your symptoms return or worsen. Follow up with your primary care provider. Claritin in the morning and Benadryl at night to help reduce congestion. Disposition: 01 DISCHARGE HOME Condition: Stable Tiffany York Jul 25, 2017 17:24
== END 2017-07-25 18:48 | disposition home or self-care (01) ==
LOC: NEPK 14:25
DX: R09.81 Nasal congestion (principal); H83.8X3 Other specified diseases of inner ear, bilateral; J02.9 Acute pharyngitis, unspecified; J45.909 Unspecified asthma, uncomplicated; Z21 Asymptomatic human immunodeficiency virus [HIV] infection status; Z79.899 Other long term (current) drug therapy; Z88.8 Allergy status to other drugs, medicaments and biological substances
CPT/HCPCS: 99283

== ENCOUNTER 2017-10-17 20:44 | Emergency (ER) | payer MEDICAID, OTHER ==
[~2017-10-17 20:44] MED LIST changes: -ONDA4TAB7 SL
[2017-10-17 20:47] VITALS: BP 147/80; PULSE 99; RESP 16; TEMP 98.5; O2SAT 99
[2017-10-18] MEDS ORDERED: TRIA.1%T TOPICAL (00:08)
[2017-10-18] MEDS ORDERED: diphenhydrAMINE HCL 50 MG CAP PO ONE (00:15)
--- NOTE | 2017-10-18 00:15 | PD ---
HPI Chief Complaint: Skin Problem Time Seen by Provider: 00:05 Travel History International Travel<30 days: No Contact w/Intl Traveler<30days: No Traveled to known affect area: No History of Present Illness HPI 37-year-old black female presents to emergency department with complains of a raised pruritic rash over the past week where she had noticed to have IVs placed when she was admitted to the hospital at [facility]. She states that she was admitted for the flu. She states that she had significant fever, chills and vomiting. She has a history of HIV. She states that she was treated and discharged home. She states she's had several IVs and where the IV was initiated the skin is raised irritating. She status pruritic. She denies any fever chills now. She states that her flu symptoms did improve. She has not followed up with anyone since her discharge. Symptoms are mild. No alleviating factors. No exacerbating factors. PFSH Past Medical History Asthma: Yes Autoimmune Disease: Yes (HIV) Cancer: No Cardiovascular Problems: No Diabetes: No Diminished Hearing: No Endocrine: No Gastrointestinal Disorders: No Genitourinary: Yes (urosepsis) Immune Disorder: Yes Implanted Vascular Access Dvce: No Musculoskeletal: No Neurologic: Yes Psychiatric: No Reproductive: No Respiratory: Yes (ASTHMA) Immunizations Current: Yes : 2 Para: 2 Tubal Ligation: Yes Past Surgical History Abdominal Surgery: Yes (laproscopic cholecystectomy 2009; 2 ) AICD: No Arteriovenous Shunt: No Section: Yes Cholecystectomy: Yes Insulin Pump: No Joint Replacement: No Pacemaker: No Other Surgery: Yes Social History Alcohol Use: Yes (occasionally drinks alcohol) Tobacco Use: No Substance Use: No Allergies-Medications (Allergen,Severity, Reaction): Coded Allergies: promethazine (Unverified Allergy, Severe, incoherent, 07/25/17) Reported Meds & Prescriptions Reported Meds & Active Scripts Active Triamcinolone Topical (Triamcinolone Acetonide) 0.1% Cream 1 Applic TOPICAL TID 7 Days Proair Hfa 8.5 GM Inh (Albuterol Sulfate) 90 Mcg/Act Aer 2 Puff INH Q4-6H PRN 108 mcg/actuation Reported Omeprazole 40 Mg Cap 40 Mg PO DAILY Prezista (Darunavir) 600 Mg Tab 600 Mg PO DAILY Intelence (Etravirine) 200 Mg Tab 200 Mg PO BIDPC Gabapentin 600 Mg Tab 600 Mg PO BID Norvir (Ritonavir) 100 Mg Cap 100 Mg PO DAILY Isentress (Raltegravir) 400 Mg Tab 400 Mg PO BID Review of Systems Except as stated in HPI: all other systems reviewed are Neg Physical Exam Narrative GENERAL: This is a well-nourished, well-developed patient, in no apparent distress. SKIN: Patient has some mild erythema, indurated and raised skin in the right antecubital fossa and right forearm as well as a small area on the left arm in the area of her IV sites. She has very small raised papular lesions. No pustules or vesicles. There is no cords indicating thrombosis. No signs of infection. This appears more allergic HEAD: Atraumatic. Normocephalic. EYES: PERRL, EOMI, no discharge or injection. No scleral icterus. EARS: Clear NOSE: Nasal turbinates appear normal. THROAT: Mucosa pink and moist. Airway patent. NECK: Trachea midline. supple, moves head freely. LUNGS: Clear to auscultation. CV: Regular in rhythm. ABDOMEN: Soft nontender. EXT: No clubbing cyanosis or edema. Data Data Last Documented VS Vital Signs Date Time Temp Pulse Resp B/P (MAP) Pulse Ox O2 Delivery O2 Flow Rate FiO2 10/17/17 20:47 98.5 99 16 147/80 (102) 99 Room Air Orders Orders Ed Discharge Order (10/18/17 00:09) Diphenhydramine (Benadryl) (10/18/17 00:15) MDM Medical Decision Making Medical Screen Exam Complete: Yes Emergency Medical Condition: Yes Medical Record Reviewed: Yes Differential Diagnosis Differential diagnosis: Cellulitis, DVT, superficial phlebitis, contact dermatitis, abscess Narrative Course Patient is given Benadryl 50 mg by mouth. I suspect her symptoms are more of a allergic/contact type dermatitis. She'll be given a prescription for triamcinolone. Patient agrees with treatment plan of follow-up. Critical Care Narrative Contact dermatitis Diagnosis Primary Impression: Contact dermatitis Qualified Codes: L23.1 - Allergic contact dermatitis due to adhesives Patient Instructions: General Instructions Additional Instructions: Rest. Elevation. Cool compress. 50 mg of Benadryl every 4-6 hours. Triamcinolone cream. Follow-up with your doctor next 3-5 days. Return to the ER for any problems. Med/Other Pt SpecificInfo: Prescription(s) given Scripts Triamcinolone Topical (Triamcinolone Topical) 0.1% Cream 1 APPLIC TOPICAL TID for Inflammation for 7 Days, GM 0 Refills Prov: Eren Salter MD 10/18/17 Disposition: 01 DISCHARGE HOME Condition: Stable Isaac Barrientos Oct 18, 2017 00:15
== END 2017-10-18 00:38 | disposition home or self-care (01) ==
LOC: NEPD 20:44
DX: L23.1 Allergic contact dermatitis due to adhesives (principal); J45.909 Unspecified asthma, uncomplicated; Z21 Asymptomatic human immunodeficiency virus [HIV] infection status; Z87.448 Personal history of other diseases of urinary system; Z86.69 Personal history of other diseases of the nervous system and sense organs
CPT/HCPCS: 99283; Q0163

== ENCOUNTER 2017-11-08 09:02 | Emergency (ER) | payer MEDICAID, OTHER ==
[~2017-11-08] VITALS: Ht 157.5 cm; Wt 76.0 kg
[~2017-11-08 09:02] MED LIST changes: +TRIA.1%T TOPICAL
[2017-11-08 09:15] VITALS: BP 113/75; PULSE 97; RESP 18; TEMP 98.2; O2SAT 99
[2017-11-08] MEDS ORDERED: LYRI50CA PO (09:23)
[2017-11-08] MEDS ORDERED: ZOLP5TAB3 PO (09:23)
--- NOTE | 2017-11-08 09:57 | PD ---
HPI Chief Complaint: Cold / Flu Symptoms Time Seen by Provider: 09:28 Travel History International Travel<30 days: No Contact w/Intl Traveler<30days: No Traveled to known affect area: No History of Present Illness HPI 37-year-old female with a history of HIV and asthma presents to the emergency room for evaluation of cough, congestion, wheezing, and headache for the past 2 days. Patient was admitted to [facility] 1 month ago for the flu for 4 days. After discharge she felt a little bit better and finished her antibiotics but states she never felt 100%. She followed up with her HIV doctor who gave her 2 weeks of albuterol treatments. She took those appropriately with moderate relief. She is compliant with her HIV medications. She has associated nausea without vomiting. She denies any fever, chills. Her viral load is undetectable. Her CD4 count is about 700. PFSH Past Medical History Asthma: Yes Autoimmune Disease: Yes (HIV) Cancer: No Cardiovascular Problems: No Diabetes: No Diminished Hearing: No Endocrine: No Gastrointestinal Disorders: No Genitourinary: Yes (urosepsis) Immune Disorder: Yes Implanted Vascular Access Dvce: No Musculoskeletal: No Neurologic: Yes Psychiatric: No Reproductive: No Respiratory: Yes (ASTHMA) Immunizations Current: Yes ?: Not LMP: october 25 : 2 Para: 2 Tubal Ligation: Yes Past Surgical History Abdominal Surgery: Yes (laproscopic cholecystectomy 2009; 2 ) AICD: No Arteriovenous Shunt: No Section: Yes Cholecystectomy: Yes Insulin Pump: No Joint Replacement: No Pacemaker: No Other Surgery: Yes Social History Alcohol Use: Yes (occasionally drinks alcohol) Tobacco Use: No Substance Use: No Allergies-Medications (Allergen,Severity, Reaction): Coded Allergies: promethazine (Unverified Allergy, Severe, incoherent, 11/08/17) Reported Meds & Prescriptions Reported Meds & Active Scripts Active Azithromycin 250 Mg Tab 250 Mg PO DIRECTED Take 2 tabs (500 mg) on day 1 then 1 tab daily x 4 days. Triamcinolone Topical (Triamcinolone Acetonide) 0.1% Cream 1 Applic TOPICAL TID 7 Days Proair Hfa 8.5 GM Inh (Albuterol Sulfate) 90 Mcg/Act Aer 2 Puff INH Q4-6H PRN 108 mcg/actuation Reported Zolpidem (Zolpidem Tartrate) 5 Mg Tab 5 Mg PO HS PRN Lyrica (Pregabalin) 50 Mg Cap 50 Mg PO BID Omeprazole 40 Mg Cap 40 Mg PO DAILY Prezista (Darunavir) 600 Mg Tab 600 Mg PO DAILY Intelence (Etravirine) 200 Mg Tab 200 Mg PO BIDPC Norvir (Ritonavir) 100 Mg Cap 100 Mg PO DAILY Isentress (Raltegravir) 400 Mg Tab 400 Mg PO BID Review of Systems Except as stated in HPI: all other systems reviewed are Neg Physical Exam Narrative GENERAL: Well-nourished, well-developed female no acute distress. Afebrile. Ambulatory. SKIN: Focused skin assessment warm/dry. HEAD: Normocephalic. EYES: No scleral icterus. No injection or drainage. ENT: Mucosa pink and moist. No erythema or exudates. No uvular edema. No uvular , palatal, or tonsillar deviation. Airway patent. Nasal turbinates appear normal without nasal blood, purulent drainage or septal hematoma. EARS: Bilateral pinnae and external canals appear within normal limits. Bilateral tympanic membranes without erythema, dullness or perforation. NECK: Supple, trachea midline. No JVD or lymphadenopathy. CARDIOVASCULAR: Regular rate and rhythm without murmurs, gallops, or rubs. RESPIRATORY: Breath sounds equal bilaterally. No accessory muscle use. No crackles, rales, wheezes, or rhonchi. Data Data Last Documented VS Vital Signs Date Time Temp Pulse Resp B/P (MAP) Pulse Ox O2 Delivery O2 Flow Rate FiO2 11/08/17 09:15 98.2 97 18 113/75 (88) 99 Orders Orders Chest, Pa & Lat (11/08/17 09:49) Ed Discharge Order (11/08/17 10:21) MDM Medical Decision Making Medical Screen Exam Complete: Yes Emergency Medical Condition: Yes Medical Record Reviewed: Yes Differential Diagnosis Bronchitis, viral illness, URI, pneumonia Narrative Course 37-year-old female with history of HIV presents to the emergency room for evaluation of cough and cold symptoms for the past 2 days. Symptoms include cough, congestion, sore throat, headache. Cough is nonproductive. Patient was just hospitalized 1 month ago for 4 days with influenza. She was discharged with antibiotics and albuterol. States she never felt 100% better. She followed up with her HIV doctor who put her on albuterol for 2 weeks. She is compliant with medications. CD4 is 700, viral load is undetectable. She denies any fever, chills, or vomiting since onset of symptoms. Physical exam is reassuring. Patient resting comfortably. Lung sounds clear and equal bilaterally. Vital signs stable. No increased work of breathing. Chest x-ray is negative. I spoke to my attending physician, Dr. Chapman, who recommends discharging patient with azithromycin. Patient is stable for outpatient follow- up. Diagnosis Primary Impression: Bronchitis Additional Impression: Viral illness Referrals: Infectious Disease Specialist Primary Care Physician Additional Instructions: Rest and drink plenty of fluids. Take azithromycin as directed, until gone. Follow-up with a primary care physician. Return to the emergency room for worsening symptoms. Med/Other Pt SpecificInfo: Prescription(s) given Scripts Azithromycin (Azithromycin) 250 Mg Tab 250 MG PO DIRECTED for Infection, #6 TAB 0 Refills Take 2 tabs (500 mg) on day 1 then 1 tab daily x 4 days. Prov: Alexey Chapman MD 11/08/17 Disposition: 01 DISCHARGE HOME Condition: Stable Hiral Gorodn Nov 08, 2017 09:57
--- NOTE | 2017-11-08 10:11 | RADRPT ---
EXAM DATE/TIME: 11/08/2017 10:03 [facility] COMPARISON: CHEST PA & LAT, September 23, 2016, 17:33. INDICATIONS : Short of breath and tightness in chest. MEDICAL HISTORY : Asthma. SURGICAL HISTORY : None. ENCOUNTER: Initial ACUITY: 2 days PAIN SCORE: 0/10 LOCATION: Bilateral chest FINDINGS: PA and lateral views of the chest demonstrate the lungs to be symmetrically aerated without evidence of mass, infiltrate or effusion. The cardiomediastinal contours are unremarkable. Osseous structure s are intact. CONCLUSION: 1. No acute cardiopulmonary findings. Dino Cool MD on November 08, 2017 at 10:09 Board Certified Radiologist. This report was verified electronically.
[2017-11-08] MEDS ORDERED: AZIT250T3 PO (10:20)
== END 2017-11-08 11:00 | disposition home or self-care (01) ==
LOC: NEPD 09:02
DX: J20.8 Acute bronchitis due to other specified organisms (principal); J45.909 Unspecified asthma, uncomplicated; R11.0 Nausea; B20 Human immunodeficiency virus [HIV] disease; Z79.899 Other long term (current) drug therapy; Z88.8 Allergy status to other drugs, medicaments and biological substances
CPT/HCPCS: 71046; 99283

== ENCOUNTER 2018-01-27 19:18 | Emergency (ER) | payer MEDICAID ==
[~2018-01-27] VITALS: Ht 157.5 cm; Wt 79.5 kg
[~2018-01-27 19:18] MED LIST changes: +AZIT250T3 PO; -GABA600T PO; +LYRI50CA PO; +ZOLP5TAB3 PO
[2018-01-27 20:15] VITALS: BP 130/84; PULSE 101; RESP 16; TEMP 98.6; O2SAT 98
--- NOTE | 2018-01-27 20:22 | PD ---
HPI Chief Complaint: Edema Time Seen by Provider: 20:22 Travel History International Travel<30 days: No Contact w/Intl Traveler<30days: No Traveled to known affect area: No History of Present Illness HPI 37-year-old female with history of HIV came to the emergency room with history of bilateral lower extremity edema that she noticed today. Patient says that her sister told her that she had noticed some swelling yesterday. However patient says she is just paid attention to it today. It does not hurt but is not normal for her ankles to swell up and hence she is here. She also says that she has been having some difficulty swallowing since today. Patient was once hospitalized for pneumonia and at that time she was diagnosed with esophageal candidiasis. Her last CD4 count was around 900 and viral load undetectable 1 month ago. She does have an HIV doctor that she follows up with. She has been compliant with her antiretrovirals. No history of chest pain or shortness of breath. Vital signs are stable. No history of vomiting. PFSH Past Medical History Narrative Medical List of her past medical, surgical, social and family history reviewed from the nursing note. Asthma: Yes Autoimmune Disease: Yes (HIV) Cancer: No Cardiovascular Problems: No Cerebrovascular Accident: Yes (TIA 2009) Diabetes: No Diminished Hearing: No Endocrine: No Gastrointestinal Disorders: No Genitourinary: Yes (urosepsis) Immune Disorder: Yes Implanted Vascular Access Dvce: No Musculoskeletal: No Neurologic: Yes Psychiatric: No Reproductive: No Respiratory: Yes (Asthma) Immunizations Current: Yes Tetanus Vaccination: Unknown Influenza Vaccination: No ?: Not LMP: 01/26/18 : 2 Para: 2 Tubal Ligation: Yes Past Surgical History Abdominal Surgery: Yes (laproscopic cholecystectomy 2009; 2 ) AICD: No Arteriovenous Shunt: No Section: Yes Cholecystectomy: Yes Insulin Pump: No Joint Replacement: No Pacemaker: No Other Surgery: Yes Social History Alcohol Use: Yes (occasionally drinks alcohol) Tobacco Use: No Substance Use: No Allergies-Medications (Allergen,Severity, Reaction): Coded Allergies: promethazine (Unverified Allergy, Severe, incoherent, 11/08/17) Comments List of her allergies reviewed from the nursing note. Reported Meds & Prescriptions Reported Meds & Active Scripts Active Omeprazole 40 Mg Cap 40 Mg PO DAILY Proair Hfa 8.5 GM Inh (Albuterol Sulfate) 90 Mcg/Act Aer 2 Puff INH Q4-6H PRN 108 mcg/actuation Reported Buspirone (Buspirone HCl) 10 Mg Tab 10 Mg PO BID Amitriptyline (Amitriptyline HCl) 25 Mg Tab 25 Mg PO HS Lyrica (Pregabalin) 50 Mg Cap 50 Mg PO BID Omeprazole 40 Mg Cap 40 Mg PO DAILY Prezista (Darunavir) 600 Mg Tab 600 Mg PO DAILY Intelence (Etravirine) 200 Mg Tab 200 Mg PO BIDPC Norvir (Ritonavir) 100 Mg Cap 100 Mg PO DAILY Isentress (Raltegravir) 400 Mg Tab 400 Mg PO BID Narrative Medication List of her home medications reviewed from the nursing note Review of Systems Except as stated in HPI: all other systems reviewed are Neg Musculoskeletal: Positive: Edema Physical Exam Narrative GENERAL: Awake, alert, no obvious distress SKIN: Focused skin assessment warm/dry. HEAD: Atraumatic. Normocephalic. EYES: Pupils equal and round. No scleral icterus. No injection or drainage. ENT: No nasal bleeding or discharge. Mucous membranes pink and moist. No oral thrush noticed. No drooling NECK: Trachea midline. No JVD. CARDIOVASCULAR: Regular rate and rhythm. No murmur appreciated. RESPIRATORY: No accessory muscle use. Clear to auscultation. Breath sounds equal bilaterally. GASTROINTESTINAL: Abdomen soft, non-tender, nondistended. Hepatic and splenic margins not palpable. MUSCULOSKELETAL: No obvious deformities. No clubbing. No cyanosis. Bilateral pedal edema NEUROLOGICAL: Awake and alert. No obvious cranial nerve deficits. Motor grossly within normal limits. Normal speech. PSYCHIATRIC: Appropriate mood and affect; insight and judgment normal. Data Data Last Documented VS Vital Signs Date Time Temp Pulse Resp B/P (MAP) Pulse Ox O2 Delivery O2 Flow Rate FiO2 01/27/18 20:15 98.6 101 16 130/84 (99) 98 Orders Orders Complete Blood Count With Diff (01/27/18 21:04) Comprehensive Metabolic Panel (01/27/18 21:04) B-Type Natriuretic Peptide (01/27/18 21:04) Ed Discharge Order (01/27/18 22:36) Labs Laboratory Tests Test 01/27/18 21:20 White Blood Count 9.2 TH/MM3 Red Blood Count 4.01 MIL/MM3 Hemoglobin 9.8 GM/DL Hematocrit 31.6 % Mean Corpuscular Volume 78.9 FL Mean Corpuscular Hemoglobin 24.5 PG Mean Corpuscular Hemoglobin Concent 31.1 % Red Cell Distribution Width 17.3 % Platelet Count 300 TH/MM3 Mean Platelet Volume 9.3 FL Neutrophils (%) (Auto) 49.5 % Lymphocytes (%) (Auto) 32.7 % Monocytes (%) (Auto) 8.8 % Eosinophils (%) (Auto) 8.3 % Basophils (%) (Auto) 0.7 % Neutrophils # (Auto) 4.5 TH/MM3 Lymphocytes # (Auto) 3.0 TH/MM3 Monocytes # (Auto) 0.8 TH/MM3 Eosinophils # (Auto) 0.8 TH/MM3 Basophils # (Auto) 0.1 TH/MM3 CBC Comment DIFF FINAL Differential Comment Blood Urea Nitrogen 12 MG/DL Creatinine 0.92 MG/DL Random Glucose 94 MG/DL Total Protein 7.4 GM/DL Albumin 3.3 GM/DL Calcium Level 8.3 MG/DL Alkaline Phosphatase 121 U/L Aspartate Amino Transf (AST/SGOT) 18 U/L Alanine Aminotransferase (ALT/SGPT) 19 U/L Total Bilirubin 0.1 MG/DL Sodium Level 141 MEQ/L Potassium Level 3.5 MEQ/L Chloride Level 108 MEQ/L Carbon Dioxide Level 23.1 MEQ/L Anion Gap 10 MEQ/L Estimat Glomerular Filtration Rate 82 ML/MIN B-Type Natriuretic Peptide 8 PG/ML MDM Medical Decision Making Medical Screen Exam Complete: Yes Emergency Medical Condition: Yes Medical Record Reviewed: Yes Differential Diagnosis Congestive heart failure, medication adverse effect, dependent edema. Narrative Course 10:37 PM blood test results are back and within acceptable limit except for mild anemia. Patient says she does have heavy menstrual cycles. I am comfortable discharging this patient home. She needs to follow-up with her HIV doctor. Procedures EKG Prior to Arrival: No Diagnosis Primary Impression: HIV (human immunodeficiency virus infection) Additional Impressions: Pedal edema Anemia Qualified Codes: D64.9 - Anemia, unspecified Additional Instructions: Follow-up with your primary care doctor. He may have to refer you to a GI specialist for endoscopy to rule out esophageal candidiasis. Med/Other Pt SpecificInfo: Prescription(s) given Scripts Omeprazole (Omeprazole) 40 Mg Cap 40 MG PO DAILY, #30 CAP 0 Refills Prov: Amol Pace MD 01/27/18 Disposition: 01 DISCHARGE HOME Condition: Stable Amol Pace MD Jan 27, 2018 20:22
[2018-01-27 22:01] LABS: AUTOMATED NEUTROPHIL # 4.5 TH/MM3 (1.8-7.7); BASOPHIL # 0.1 TH/MM3 (0-0.2); BASOPHIL % 0.7 % (0.0-2.0); EOSINOPHIL # 0.8 TH/MM3 (0-0.4); EOSINOPHIL % 8.3 % (0.0-4.0); HEMATOCRIT 31.6 % (35.0-46.0); HEMOGLOBIN 9.8 GM/DL (11.6-15.3); LYMPH % 32.7 % (9.0-44.0); MEAN CELL VOLUME 78.9 FL (80.0-100.0); MEAN CORPUSCULAR HEMOGLOBIN 24.5 PG (27.0-34.0); MEAN CORPUSCULAR HGB CONC 31.1 % (32.0-36.0); MEAN PLATELET VOLUME 9.3 FL (7.0-11.0); MONO % 8.8 % (0.0-8.0); MONOCYTE # 0.8 TH/MM3 (0-0.9); NEUT % 49.5 % (16.0-70.0); PLATELET COUNT 300 TH/MM3 (150-450); RED BLOOD COUNT 4.01 MIL/MM3 (4.00-5.30); RED CELL DISTRIBUTION WIDTH 17.3 % (11.6-17.2); WHITE BLOOD COUNT 9.2 TH/MM3 (4.0-11.0)
[2018-01-27 22:17] LABS: ALBUMIN 3.3 GM/DL (3.4-5.0); ALT (GPT) 19 U/L (10-53); AST (GOT) 18 U/L (15-37); BICARBONATE 23.1 MEQ/L (21.0-32.0); BLOOD UREA NITROGEN 12 MG/DL (7-18); CALCIUM 8.3 MG/DL (8.5-10.1); CHLORIDE 108 MEQ/L (98-107); CREATININE 0.92 MG/DL (0.50-1.00); GLOMERULAR FILTRATION RATE 82 ML/MIN (>89); GLUCOSE,RANDOM 94 MG/DL (74-106); SODIUM (NA) 141 MEQ/L (136-145)
[2018-01-27 22:19] LABS: ALKALINE PHOSPHATASE 121 U/L (45-117); TOTAL BILIRUBIN ADULT 0.1 MG/DL (0.2-1.0); TOTAL PROTEIN 7.4 GM/DL (6.4-8.2)
[2018-01-27] MEDS ORDERED: OMEP40CA2 PO (22:38)
[2018-01-27] MEDS ORDERED: FERR325T18 PO (22:43)
[2018-01-27] MEDS ORDERED: AMIT25TA9 PO (23:16)
[2018-01-27] MEDS ORDERED: BUSP10TA PO (23:16)
== END 2018-01-27 23:23 | disposition home or self-care (01) ==
LOC: NEPD 19:18
DX: Z21 Asymptomatic human immunodeficiency virus [HIV] infection status (principal); R60.0 Localized edema; D64.9 Anemia, unspecified; J45.909 Unspecified asthma, uncomplicated; Z86.73 Personal history of transient ischemic attack (TIA), and cerebral infarction without residual deficits; Z79.899 Other long term (current) drug therapy; Z88.8 Allergy status to other drugs, medicaments and biological substances
CPT/HCPCS: 80053; 83880; 85025; 99283

== ENCOUNTER → 2018-02-14 | Outpatient (CLI) | payer MEDICAID ==
[~2018-02-14] MED LIST changes: +AMIT25TA9 PO; -AZIT250T3 PO; +BUSP10TA PO; -TRIA.1%T TOPICAL; -ZOLP5TAB3 PO
--- NOTE | 2018-02-14 18:34 | EKG ---
Date Performed: 02/14/2018 Time Performed: 09:32:01 PTAGE: 38 years EKG: Sinus rhythm WITH FIRST DEGREE AV BLOCK ABNORMAL ECG Since the PREVIOUS TRACING , no significant change noted PREVIOUS TRACIN09/23/2016 18.37 DOCTOR: Miryam Cowan Interpretating Date/Time 02/14/2018 18:32:34
== END ==
LOC: HCAV 09:13
PROVIDERS: ATTEND Psychiatry & Neurology Child & Adolescent Psychiatry
DX: F33.1 Major depressive disorder, recurrent, moderate (principal); F41.1 Generalized anxiety disorder; R94.31 Abnormal electrocardiogram [ECG] [EKG]
CPT/HCPCS: 93005

== ENCOUNTER 2018-03-22 10:33 | Observation (INO) ==
[2018-03-22] MEDS ORDERED: Aspirin 325 MG Tablet PO ONE (10:52)
--- NOTE | 2018-03-22 11:00 | ED ---
HPI General Chief Complaint: Chest Pain Stated Complaint: chest/shoulder pain Time Seen by Provider: 03/22/18 10:52 Source: patient Mode of arrival: ambulatory Limitations: no limitations History of Present Illness HPI narrative: 38-year-old female patient with history of HIV, presents to the ER today because of 1 day history of right-sided chest pains or radiation down the right arm and right arm tingling, currently rated at 10 out of 10, stabbing pain. She denies any shortness of breath, fevers, abdominal pains, or other symptoms. She states it hurts a little bit more with movements. She denies any previous history of this. Complete Quality Measures for STEMI Alert Patients Related Data Home Medications Medication Instructions Recorded Confirmed amitriptyline 50 mg PO DAILY 03/22/18 03/22/18 atorvastatin 20 mg PO DAILY 03/22/18 03/22/18 darunavir ethanolate [Prezista] 150 mg PO DAILY 03/22/18 03/22/18 etravirine [Intelence] 200 mg PO BID 03/22/18 03/22/18 ferrous sulfate [iron] 325 mg PO DAILY 03/22/18 03/22/18 folic acid 1 mg PO DAILY 03/22/18 03/22/18 omeprazole 20 mg PO DAILY 03/22/18 03/22/18 ondansetron HCl [Zofran] 4 mg PO TID PRN 03/22/18 03/22/18 paroxetine mesylate 20 mg PO DAILY 03/22/18 03/22/18 ritonavir [Norvir] 100 mg PO DAILY 03/22/18 03/22/18 Allergies Allergy/AdvReac Type Severity Reaction Status Date / Time promethazine Allergy Severe incoherent Verified 03/22/18 10:46 Review of Systems Except as stated in HPI: all other systems reviewed are negative PMFSH History History Provided By: Patient Medical History Medical History HIV disease (Acute) Hemiplegic migraine (Acute) High cholesterol (Acute) Neuropathy (Acute) Surgical History Surgical History History of (Acute) Hx of cholecystectomy (Acute) Social History Social History Substance History: No History of Abuse Second Hand Smoke Exposure: No Smoking Status: Never smoker How Often Do You Have a Drink Containing Alcohol: Never Recent Travel in [facility] within the Last 8 Weeks: No Recent Out of Country Travel within the Last 8 Weeks: No Exam Narrative Exam Narrative: GENERAL: Well-developed middle-age -[place] female patient currently in mild distress. Awake and oriented 3. SKIN: Focused skin assessment warm/dry. HEAD: Atraumatic. Normocephalic. EYES: Pupils equal and round. No scleral icterus. No injection or drainage. ENT: No nasal bleeding or discharge. Mucous membranes pink and moist. NECK: Trachea midline. No JVD. Supple. CARDIOVASCULAR: Regular rate and rhythm. No murmur appreciated. Pulses are present and equal bilaterally. RESPIRATORY: No accessory muscle use. Clear to auscultation. Breath sounds equal bilaterally. GASTROINTESTINAL: Abdomen soft, non-tender, nondistended. Hepatic and splenic margins not palpable. MUSCULOSKELETAL: No obvious deformities. No clubbing. No cyanosis. No edema. NEUROLOGICAL: Awake and alert. No obvious cranial nerve deficits. Motor grossly within normal limits. Normal speech. PSYCHIATRIC: Appropriate mood and affect; insight and judgment normal. Course Hospital Course: Chest x-ray, EKG, lab work was fairly unremarkable. Chest pain is fairly atypical. However, patient is middle-aged, woman, high cholesterol history, and at this point, my plan would be to admit her for further evaluation of chest pain in her chest pain center. Initial Documented Vital Signs Temperature 98 F 03/22/18 10:37 Pulse Rate 124 H 03/22/18 10:37 Respiratory Rate 16 03/22/18 10:37 Blood Pressure 132/89 03/22/18 10:37 Pulse Oximetry 96 03/22/18 10:37 Last Documented Vital Signs Temperature 98.2 F 03/22/18 13:20 Pulse Rate 97 H 03/22/18 13:20 Respiratory Rate 18 03/22/18 13:20 Blood Pressure 108/72 03/22/18 13:20 Pulse Oximetry 98 03/22/18 13:20 Medical Decision Making Differential Diagnosis Differential Diagnosis: ACS versus muscular skeletal versus pneumonia Lab Data Lab results reviewed: Yes I reviewed the patient's lab results. Result diagrams: 03/22/18 10:55 07/27/18 10:55 Lab Results 03/22/18 03/22/18 03/22/18 Range/Units 10:55 10:55 10:55 WBC 7.2 (4.0-11.0) th/mm3 RBC 4.46 (4.00-5.30) mil/mm3 Hgb 12.5 (11.6-15.3) gm/dL Hct 36.7 (35.0-46.0) % MCV 82.4 (80.0-100.0) fL MCH 28.2 (27.0-34.0) pg MCHC 34.2 (32.0-36.0) % RDW 24.1 H (11.6-17.2) % Plt Count 301 (150-450) th/mm3 MPV 9.0 (7.0-11.0) fL Neut % (Auto) 55.0 (16.0-70.0) % Lymph % (Auto) 28.2 (9.0-44.0) % Emmet % (Auto) 8.7 H (0.0-8.0) % Eos % (Auto) 7.2 H (0.0-4.0) % Baso % (Auto) 0.9 (0.0-2.0) % Neut # (Auto) 4.0 (1.8-7.7) th/mm3 Lymph # (Auto) 2.0 (1.0-4.8) th/mm3 Emmet # (Auto) 0.6 (0.0-0.9) th/mm3 Eos # (Auto) 0.5 H (0.0-0.4) th/mm3 Baso # (Auto) 0.1 (0.0-0.2) th/mm3 WBC Differential . Differential Comment Auto diff final PT 10.1 (9.8-11.6) sec INR 1.0 Ratio APTT 24.8 (24.3-30.1) sec Sodium 140 (136-145) meq/L Potassium 3.7 (3.5-5.1) meq/L Chloride 108 H (98-107) meq/L Carbon Dioxide 24.6 (21.0-32.0) meq/L Anion Gap 7 (5-15) meq/L BUN 6 L (7-18) mg/dL Creatinine 0.96 (0.50-1.00) mg/dL Estimated GFR 78 L (>89) mL/min Random Glucose 121 H (74-106) mg/dL Calcium 8.8 (8.5-10.1) mg/dL Total Bilirubin 0.3 (0.2-1.0) mg/dL AST 35 (15-37) U/L ALT 27 (10-53) U/L Alkaline Phosphatase 118 H (45-117) U/L Troponin I Less than 0.02 L (0.02-0.05) ng/mL Total Protein 7.9 (6.4-8.2) g/dL Albumin 3.6 (3.4-5.0) g/dL Imaging Data Attestation: I personally reviewed and interpreted this imaging study as follows : Radiologist's impression: Chest X-Ray 03/22/18 10:53 CONCLUSION: No acute cardiopulmonary disease. ECG Data Attestation: I personally reviewed and interpreted this ECG as follows: Interpretation: EKG shows sinus tachycardia rate of 100 bpm. No signs of acute ST elevations or depressions. Discharge Plan Discharge Disposition Patient Disposition: 30 Still Patient Discharge Condition Condition: Stable Discharge Details Anticipated Discharge Date: 03/22/18 Diagnosis: Atypical chest pain Physicians Team ED Provider: Laila Trimble Primary Care Provider: Primary Care Marcelle Norris Rxs /Orders / Referrals /Forms Prescriptions: No Action ondansetron HCl [Zofran] 4 mg Tablet 4 mg PO TID PRN (Reason: Nausea) RF: 0 paroxetine mesylate 20 mg Tablet 20 mg PO DAILY RF: 0 omeprazole 20 mg Tablet,Delayed Release (Dr/Ec) 20 mg PO DAILY RF: 0 darunavir ethanolate [Prezista] 150 mg Tablet 150 mg PO DAILY RF: 0 ritonavir [Norvir] 100 mg Tablet 100 mg PO DAILY RF: 0 etravirine [Intelence] 200 mg Tablet 200 mg PO BID RF: 0 atorvastatin 20 mg Tablet 20 mg PO DAILY RF: 0 amitriptyline 50 mg Tablet 50 mg PO DAILY RF: 0 folic acid 1 mg Tablet 1 mg PO DAILY RF: 0 ferrous sulfate [iron] 325 mg (65 mg iron) Tablet 325 mg PO DAILY RF: 0 Discharge Instructions Patient Printed Instructions: Chest Pain (ED) Status ED Status: With Doctor
[2018-03-22 11:37] LABS: Baso # (Auto) 0.1 th/mm3 (0.0-0.2); Baso % (Auto) 0.9 % (0.0-2.0); Eos # (Auto) 0.5 th/mm3 (0.0-0.4); Eos % (Auto) 7.2 % (0.0-4.0); Hematocrit 36.7 % (35.0-46.0); Hemoglobin 12.5 gm/dL (11.6-15.3); Lymph % (Auto) 28.2 % (9.0-44.0); Mean Corpuscular HGB Conc 34.2 % (32.0-36.0); Mean Corpuscular Hemoglobin 28.2 pg (27.0-34.0); Mean Corpuscular Volume 82.4 fL (80.0-100.0); Mono # (Auto) 0.6 th/mm3 (0.0-0.9); Mono % (Auto) 8.7 % (0.0-8.0); Platelet Count 301 th/mm3 (150-450); Red Blood Count 4.46 mil/mm3 (4.00-5.30); Red Cell Distribution Width 24.1 % (11.6-17.2); White Blood Count 7.2 th/mm3 (4.0-11.0)
--- NOTE | 2018-03-22 11:50 | XR ---
EXAM DATE: 03/22/2018 11:44 AM EDT AGE/SEX: 38 years / Female INDICATIONS: Chest and back pain, numbness and tingling on the right side of the body for 4 days CLINICAL DATA: This is the patient's initial encounter. Patient reports that signs and symptoms have been present for 4 - 6 days and indicates a pain score of 6/10. MEDICAL/SURGICAL HISTORY: Asthma. None. COMPARISON: [facility] [place], CHEST PA & LAT, 11/08/2017. . FINDINGS: A single AP view of the chest demonstrates the lungs to be symmetrically aerated without evidence of mass, infiltrate or effusion. The heart size is at the upper limits of normal with no pulmonary vasc ular redistribution or perihilar edema. Osseous structures are intact. CONCLUSION: No acute cardiopulmonary disease. Electronically signed by: Reed Arevalo MD 03/22/2018 11:49 AM EDT
[2018-03-22 11:54] LABS: Activated Partial Thrombo Time 24.8 sec (24.3-30.1); Prothrombin Time 10.1 sec (9.8-11.6)
[2018-03-22 12:05] LABS: Alkaline Phosphatase 118 U/L (45-117); Total Protein 7.9 g/dL (6.4-8.2)
[2018-03-22 12:08] LABS: Alanine Aminotransferase 27 U/L (10-53); Albumin 3.6 g/dL (3.4-5.0); Anion Gap 7 meq/L (5-15); Aspartate Aminotransferase 35 U/L (15-37); Blood Urea Nitrogen 6 mg/dL (7-18); Calcium 8.8 mg/dL (8.5-10.1); Carbon Dioxide 24.6 meq/L (21.0-32.0); Chloride 108 meq/L (98-107); Glomerular Filtration Rate 78 mL/min (>89); Glucose,Random 121 mg/dL (74-106); Potassium 3.7 meq/L (3.5-5.1); Sodium 140 meq/L (136-145)
--- NOTE | 2018-03-22 14:37 | P.HPCA ---
History of Present Illness Primary Care Physician: No Primary Care Physician Chief Complaint: Right-sided chest pain and shoulder pain History of Present Illness: This is a 38-year-old female that presents to ED via private vehicle with complaint of going on her fifth day of constant right-sided chest wall, right shoulder, and right upper back pain. Pain is been constant but is worse when she lies on her right side or with certain movements of her right arm. Pain can be as high as a 10 out of 10. Initially Motrin was helping a little bit no longer is helping. Denies trauma. Denies other type of discomfort. Denies shortness of breath, nausea, or diaphoresis. Denies . States she had a tubal ligation. Patient has been a non-smoker. Rarely has alcohol. Denies illicit drug use. Denies family cardiac history. Patient had tubal ligation, cholecystectomy, and 2. - Diagnosis (1) Chest pain (2) Hyperlipidemia (3) HIV (human immunodeficiency virus infection) Review of Systems General: Patient denies fevers, chills, and recent travel. HEENT: Patient denies headache, sore throat, difficulty swallowing. Cardiovascular: Has the chest discomfort as mentioned above. Denies sensation of heart beating rapidly or irregularly. No syncope. Denies diaphoresis. Respiratory: Denies shortness of breath or inspirational chest discomfort. Denies coughing wheezing or hemoptysis. GI: Patient denies nausea, vomiting, diarrhea, abdominal pain, bloody stools. Musculoskeletal: Complains of right shoulder pain that is worsened with movement of the arm. Denies trauma. Patient denies joint edema. Denies calf pain or edema. Neurovascular: Patient denies numbness, tingling, weakness in extremities. Denies headache. Endocrine: Denies polyuria and polydipsia. Hematologic: Denies easy bruising. Skin: Denies rash or itching. PMFSH - History History Provided By: Patient - Medical History Medical History: Medical History (Last Reviewed 03/22/18 @ 10:55 by Laila Trimble MD) HIV disease Hemiplegic migraine High cholesterol Neuropathy - Surgical History Surgical History: Surgical History (Last Reviewed 03/22/18 @ 10:55 by Laila Trimble MD) History of Hx of cholecystectomy - Tobacco History Second Hand Smoke Exposure: No Tobacco Use In Past 30 Days: No Smoking Status: Never smoker - Alcohol History How Often Do You Have a Drink Containing Alcohol: Never - Substance Use History Substance History: No History of Abuse - Travel History Recent Travel in the [place] Within the Last 8 Weeks: No Recent Travel Out of the Country Within the Last 8 Weeks: No - Immunization History Tetanus Immunization: >5 Years Hx Influenza Vaccine This Season: No Medications and Allergies Active Medications: Active Medications Aspirin (Aspirin) 325 mg PO DAILY GUILLERMO Ketorolac Tromethamine (Toradol Inj) 30 mg IV.PUSH ONCE ONE Stop: 03/22/18 14:30 Sodium Chloride (Ns Flush) 2 ml IV.FLUSH UNSCH PRN PRN Reason: FLUSH AFTER USING IV ACCESS Last Admin: 03/22/18 11:07 Dose: 2 ml Sodium Chloride (Ns Flush) 2 ml IV.FLUSH BID GUILLERMO Sodium Chloride (Ns Flush) 2 ml IV.FLUSH PRN PRN PRN Reason: FLUSH AFTER USING IV ACCESS Allergies Allergy/AdvReac Type Severity Reaction Status Date / Time promethazine Allergy Severe incoherent Verified 03/22/18 10:46 Home Medications Medication Instructions Recorded Confirmed Type amitriptyline 50 mg PO DAILY 03/22/18 03/22/18 History atorvastatin 20 mg PO DAILY 03/22/18 03/22/18 History darunavir ethanolate [Prezista] 150 mg PO DAILY 03/22/18 03/22/18 History etravirine [Intelence] 200 mg PO BID 03/22/18 03/22/18 History ferrous sulfate [iron] 325 mg PO DAILY 03/22/18 03/22/18 History folic acid 1 mg PO DAILY 03/22/18 03/22/18 History omeprazole 20 mg PO DAILY 03/22/18 03/22/18 History ondansetron HCl [Zofran] 4 mg PO TID PRN 03/22/18 03/22/18 History paroxetine mesylate 20 mg PO DAILY 03/22/18 03/22/18 History ritonavir [Norvir] 100 mg PO DAILY 03/22/18 03/22/18 History Exam Vital signs: Vital Signs 03/22/18 10:37 03/22/18 10:53 03/22/18 13:20 Temperature 98 F 98.1 F 98.2 F Pulse Rate 124 H 103 H 97 H Respiratory Rate 16 20 18 Blood Pressure 132/89 117/74 108/72 Pulse Oximetry 96 98 98 03/22/18 14:22 Temperature Pulse Rate Respiratory Rate Blood Pressure Pulse Oximetry 100 Intake & Output 03/21/18 03/22/18 03/22/18 18:59 06:59 18:59 Weight 81.647 kg Narrative: GENERAL: This is a well-nourished, well-developed patient, in no apparent distress. Patient speaks in clear complete sentences. Patient is pleasant. HEENT: Head is atraumatic and normocephalic. Neck is supple without lymphadenopathy and trachea is midline. No JVD or carotid bruits. CARDIOVASCULAR: Regular rate and rhythm without murmurs, gallops, or rubs. RESPIRATORY: Clear to auscultation. Breath sounds equal bilaterally. No wheezes , rales, or rhonchi. Right upper chest wall is tender reproducing the discomfort that brought her to the ED. No use of accessory muscles. GASTROINTESTINAL: Abdomen is nontender, nondistended. Abdomen soft. No obvious pulsatile mass or bruit. No CVA tenderness. Strong femoral pulses bilaterally. Normal bowel sounds in all quadrants. MUSCULOSKELETAL: Patient is moving upper and lower extremities freely however discomfort is reproduced within the right arm and shoulder with internal and external rotation as well as bringing the arm across the chest.. No calf tenderness or edema, no Homans sign. Strong end matcher strength bilaterally. No discomfort with flexion/extension of cervical spine. No spinous process point tenderness in palpating cervical, thoracic, or lumbar spine. Strong pulses in upper and lower extremities. NEUROLOGICAL: Patient is alert and oriented. Cranial nerves 2-12 are grossly intact. No focal deficits and speech is clear. SKIN: No rash and turgor is normal. Results 03/22/18 10:55 03/22/18 10:55 Cardiac Enzymes 03/22/18 Range/Units 10:55 AST 35 (15-37) U/L Troponin I Less than 0.02 L (0.02-0.05) ng/mL Coagulation 03/22/18 Range/Units 10:55 PT 10.1 (9.8-11.6) sec APTT 24.8 (24.3-30.1) sec CBC 03/22/18 Range/Units 10:55 WBC 7.2 (4.0-11.0) th/mm3 RBC 4.46 (4.00-5.30) mil/mm3 Hgb 12.5 (11.6-15.3) gm/dL Hct 36.7 (35.0-46.0) % Plt Count 301 (150-450) th/mm3 Neut # (Auto) 4.0 (1.8-7.7) th/mm3 Lymph # (Auto) 2.0 (1.0-4.8) th/mm3 [place] # (Auto) 0.6 (0.0-0.9) th/mm3 Eos # (Auto) 0.5 H (0.0-0.4) th/mm3 Baso # (Auto) 0.1 (0.0-0.2) th/mm3 Comprehensive Metabolic Panel 03/22/18 Range/Units 10:55 Sodium 140 (136-145) meq/L Potassium 3.7 (3.5-5.1) meq/L Chloride 108 H (98-107) meq/L Carbon Dioxide 24.6 (21.0-32.0) meq/L BUN 6 L (7-18) mg/dL Creatinine 0.96 (0.50-1.00) mg/dL Calcium 8.8 (8.5-10.1) mg/dL AST 35 (15-37) U/L ALT 27 (10-53) U/L Alkaline Phosphatase 118 H (45-117) U/L Total Protein 7.9 (6.4-8.2) g/dL Albumin 3.6 (3.4-5.0) g/dL Intake and Output 03/21/18 03/22/18 03/22/18 22:59 06:59 14:59 Other: Weight 81.647 kg Patient Weight 03/23/18 06:59 Weight 81.647 kg EKG interpretations - EKG EKG shows: sinus rhythm (Initial EKG is sinus tachycardia rate [address] segment depressions or elevations. Nonspecific T-wave changes are present.) Caprini VTE Risk Assessment Caprini VTE Risk Assessment: No/Low Risk (score <= 1) Caprini Risk Assessment Model: Point Value = 1 Point Value = 2 Point Value = 3 Point Value = 5 Age 41-60 Minor surgery BMI > 25 kg/m2 Swollen legs Varicose veins or History of unexplained or recurrent spontaneous Oral contraceptives or hormone replacement Sepsis (< 1 month) Serious lung disease, including pneumonia (< 1 month) Abnormal pulmonary function Acute myocardial infarction Congestive heart failure (< 1 month) History of inflammatory bowel disease Medical patient at bed rest Age 61-74 Arthroscopic surgery Major open surgery (> 45 min) Laparoscopic surgery (> 45 min) Malignancy Confined to bed (> 72 hours) Immobilizing plaster cast Central venous access Age >= 75 History of VTE Family history of VTE Factor V Leiden Prothrombin [id number] Lupus anticoagulant Anticardiolipin antibodies Elevated serum homocysteine Heparin-induced thrombocytopenia Other congenital or acquired thrombophilia Stroke (< 1 month) Elective arthroplasty Hip, pelvis, or leg fracture Acute spinal cord injury (< 1 month) Prophylaxis Regimen: Total Risk Factor Score Risk Level Prophylaxis Regimen 0-1 Low Early ambulation 2 Moderate Order ONE of the following: *Sequential Compression Device (SCD) *Heparin 5000 units SQ BID 3-4 Higher Order ONE of the following medications: *Heparin 5000 units SQ TID *Enoxaparin/Lovenox 40 mg SQ daily (WT < 150 kg, CrCl > 30 mL/min) *Enoxaparin/Lovenox 30 mg SQ daily (WT < 150 kg, CrCl > 10-29 mL/min) *Enoxaparin/Lovenox 30 mg SQ BID (WT < 150 kg, CrCl > 30 mL/min) AND/OR *Sequential Compression Device (SCD) 5 or more Highest Order ONE of the following medications: *Heparin 5000 units SQ TID (Preferred with Epidurals) *Enoxaparin/Lovenox 40 mg SQ daily (WT < 150 kg, CrCl > 30 mL/min) *Enoxaparin/Lovenox 30 mg SQ daily (WT < 150 kg, CrCl > 10-29 mL/min) *Enoxaparin/Lovenox 30 mg SQ BID (WT < 150 kg, CrCl > 30 mL/min) AND *Sequential Compression Device (SCD) Assessment and Plan - Assessment (1) Chest pain Code(s): R07.9 - Chest pain, unspecified Status: Acute (2) Hyperlipidemia Code(s): E78.5 - Hyperlipidemia, unspecified Status: Acute (3) HIV (human immunodeficiency virus infection) Code(s): B20 - Human immunodeficiency virus [HIV] disease Status: Acute - Plan * Atypical chest pain: Patient's symptoms appear musculoskeletal in nature. She has a right sided reproducible chest wall pain is also worsened with movement of the right arm. Patient was given a dose of Toradol IV 1. She will be seen by Dr. Obrien cardiology in the chest pain center and likely be discharged at that time without stress testing and with instructions to follow- up with PCP which she states she has an appointment for this Sunday. She will be advised to keep that appointment. * Hyperlipidemia: Continue medication. * HIV: Continue medications and follow-up with her physician. Patient is stable at this time. She is agreeable to this plan.
[2018-03-22] MEDS ORDERED: Ketorolac Inj 30 MG/ML (IVP) Vial IV.PUSH ONE (14:45)
[2018-03-23] MEDS ORDERED: Aspirin 325 MG Tablet PO SCH (09:00)
--- NOTE | 2018-03-23 15:23 | ECG ---
Date Performed: 03/22/2018 Time Performed: 11:00:09 PTAGE: 38 years EKG: SINUS TACHYCARDIA NONSPECIFIC T-WAVE ABNORMALITY Since previous tracing, no significant johan nge noted ABNORMAL RHYTHM ECG PREVIOUS TRACING : 02/14/2018 09.32.01 DOCTOR: Matthew Rebollar Interpretating Date/Time 03/23/2018 15:22:13
== END 2018-03-22 16:17 | disposition home or self-care (01) ==
LOC: NEPHCDU 10:33 → NEPE 10:33 → NEDA 10:33 → NEPHCDU 15:17
DX: M54.6 Pain in thoracic spine; B20 Human immunodeficiency virus [HIV] disease; R20.2 Paresthesia of skin; G43.409 Hemiplegic migraine, not intractable, without status migrainosus; R07.89 Other chest pain; Z79.899 Other long term (current) drug therapy; E78.5 Hyperlipidemia, unspecified; G62.9 Polyneuropathy, unspecified

== ENCOUNTER 2018-08-02 11:38 | Inpatient (IN) ==
--- NOTE | 2018-08-02 11:56 | ED ---
HPI General Chief Complaint: Respiratory Symptoms Stated Complaint: SOB Complaint Time Seen by Provider: 08/02/18 11:54 Source: patient Mode of arrival: ambulatory Limitations: no limitations History of Present Illness 38-year-old female complains of shortness of breath and wheezing. Patient has history of asthma. Patient started having mild dry cough and wheezing and short of breath for the past 2 days. Patient went to local urgent care and advised to go to ED for evaluation. Patient denies any chest pain. Patient denies any fever chills. Patient denies any chance of being . Patient has history of HIV positive, neuropathy, hyperlipidemia. Patient is on medications for that. Patient does not know her CD4 count. Viral load was checked in June and was undetectable. MD Complaint: Reports shortness of breath, cough and "asthma attack" Onset (ago): day(s) Severity: severe Consistency/Duration: constant Relieving factors: nothing and bronchodilators Exacerbating factors: nothing Known history of: Reports asthma Associated symptoms: Reports cough and wheezing Treatment prior to arrival: Reports bronchodilator Related Data Home Medications Medication Instructions Recorded Confirmed amitriptyline 50 mg PO DAILY 03/22/18 08/02/18 atorvastatin 20 mg PO DAILY 03/22/18 08/02/18 darunavir ethanolate [Prezista] 150 mg PO DAILY 03/22/18 08/02/18 etravirine [Intelence] 200 mg PO BID 03/22/18 08/02/18 ferrous sulfate [iron] 325 mg PO DAILY 03/22/18 08/02/18 folic acid 1 mg PO DAILY 03/22/18 08/02/18 omeprazole 20 mg PO DAILY 03/22/18 08/02/18 ondansetron HCl [Zofran] 4 mg PO TID PRN 03/22/18 08/02/18 paroxetine mesylate 20 mg PO DAILY 03/22/18 08/02/18 ritonavir [Norvir] 100 mg PO DAILY 03/22/18 08/02/18 hydroxyzine HCl 10 mg PO BID 08/02/18 08/02/18 hydroxyzine HCl 50 mg PO HS 08/02/18 08/02/18 Allergies Allergy/AdvReac Type Severity Reaction Status Date / Time promethazine Allergy Severe incoherent Verified 08/02/18 11:58 Review of Systems ROS: all other systems reviewed are negative PMFSH History History Provided By: Patient Medical History Medical History HIV disease (Acute) Hemiplegic migraine (Acute) High cholesterol (Acute) Neuropathy (Acute) Surgical History Surgical History History of (Acute) Hx of cholecystectomy (Acute) Social History Social History Substance History: No History of Abuse Second Hand Smoke Exposure: No Smoking Status: Never smoker How Often Do You Have a Drink Containing Alcohol: Never Recent Travel in [facility] within the Last 8 Weeks: No Recent Out of Country Travel within the Last 8 Weeks: No Course Initial Documented Vital Signs Temperature 98.2 F 08/02/18 11:40 Pulse Rate 123 H 08/02/18 11:40 Respiratory Rate 18 08/02/18 11:40 Blood Pressure 145/69 H 08/02/18 11:40 Pulse Oximetry 94 L 08/02/18 11:40 Last Documented Vital Signs Temperature 97.9 F 08/02/18 11:54 Pulse Rate 111 H 08/02/18 12:04 Respiratory Rate 20 08/02/18 12:04 Blood Pressure 127/81 08/02/18 11:54 Pulse Oximetry 93 L 08/02/18 11:54 Medical Decision Making MDM Narrative Medical decision making narrative: 38-year-old female with coughing wheezing and shortness of breath. History of asthma. Albuterol Atrovent unit dose treatment x3. Decadron 8 mg IM. Rocephin 1 g IV. Zithromax 500 mg IV. Repeat albuterol Atrovent unit dose treatment x1. Medical Screen Exam Complete: Yes Emergency Medical Condition: Yes Lab Data Result diagrams: 08/02/18 13:05 08/02/18 13:05 Lab Results 08/02/18 08/02/18 Range/Units 13:05 13:05 WBC 7.5 (4.0-11.0) th/mm3 RBC 4.10 (4.00-5.30) mil/mm3 Hgb 13.1 (11.6-15.3) gm/dL Hct 39.2 (35.0-46.0) % MCV 95.8 (80.0-100.0) fL MCH 32.1 (27.0-34.0) pg MCHC 33.5 (32.0-36.0) % RDW 14.7 (11.6-17.2) % Plt Count 271 (150-450) th/mm3 MPV 8.1 (7.0-11.0) fL Neut % (Auto) 52.7 (16.0-70.0) % Lymph % (Auto) 32.2 (9.0-44.0) % [place] % (Auto) 7.0 (0.0-8.0) % Eos % (Auto) 7.3 H (0.0-4.0) % Baso % (Auto) 0.8 (0.0-2.0) % Neut # (Auto) 3.9 (1.8-7.7) th/mm3 Lymph # (Auto) 2.4 (1.0-4.8) th/mm3 [place] # (Auto) 0.5 (0.0-0.9) th/mm3 Eos # (Auto) 0.5 H (0.0-0.4) th/mm3 Baso # (Auto) 0.1 (0.0-0.2) th/mm3 WBC Differential . Differential Comment Auto diff final Sodium 139 (136-145) meq/L Potassium 3.2 L (3.5-5.1) meq/L Chloride 108 H (98-107) meq/L Carbon Dioxide 24.7 (21.0-32.0) meq/L Anion Gap 6 (5-15) meq/L BUN 6 L (7-18) mg/dL Creatinine 0.93 (0.50-1.00) mg/dL Estimated GFR 81 L (>89) mL/min Random Glucose 135 H (74-106) mg/dL Calcium 8.7 (8.5-10.1) mg/dL Imaging Data Radiologist's impression: Chest X-Ray 08/02/18 12:56 CONCLUSION: Mild hazy opacity at both lung bases may represent small effusions with associated atelectasis or consolidation. Good inspiratory formal PA and lateral views of the chest may further characterize, if needed. Discharge Plan Discharge Disposition Patient Disposition: ED Admit(ED Internal Use Only) Discharge Details Diagnosis: Acute asthma exacerbation Physicians Team ED Provider: Alexey Chapman Primary Care Provider: UNKNOWN, Rxs /Orders / Referrals /Forms Prescriptions: No Action ondansetron HCl [Zofran] 4 mg Tablet 4 mg PO TID PRN (Reason: Nausea) RF: 0 paroxetine mesylate 20 mg Tablet 20 mg PO DAILY RF: 0 omeprazole 20 mg Tablet,Delayed Release (Dr/Ec) 20 mg PO DAILY RF: 0 darunavir ethanolate [Prezista] 150 mg Tablet 150 mg PO DAILY RF: 0 ritonavir [Norvir] 100 mg Tablet 100 mg PO DAILY RF: 0 etravirine [Intelence] 200 mg Tablet 200 mg PO BID RF: 0 atorvastatin 20 mg Tablet 20 mg PO DAILY RF: 0 amitriptyline 50 mg Tablet 50 mg PO DAILY RF: 0 folic acid 1 mg Tablet 1 mg PO DAILY RF: 0 ferrous sulfate [iron] 325 mg (65 mg iron) Tablet 325 mg PO DAILY RF: 0 hydroxyzine HCl 50 mg Tablet 50 mg PO HS RF: 0 hydroxyzine HCl 10 mg Tablet 10 mg PO BID RF: 0 Discharge Interventions Interventions: Vital Signs Last Done: 08/02/18 11:54 Status ED Status: With Doctor
[2018-08-02 13:32] LABS: Baso # (Auto) 0.1 th/mm3 (0.0-0.2); Baso % (Auto) 0.8 % (0.0-2.0); Eos # (Auto) 0.5 th/mm3 (0.0-0.4); Eos % (Auto) 7.3 % (0.0-4.0); Hematocrit 39.2 % (35.0-46.0); Hemoglobin 13.1 gm/dL (11.6-15.3); Lymph # (Auto) 2.4 th/mm3 (1.0-4.8); Lymph % (Auto) 32.2 % (9.0-44.0); Mean Corpuscular HGB Conc 33.5 % (32.0-36.0); Mean Corpuscular Hemoglobin 32.1 pg (27.0-34.0); Mean Corpuscular Volume 95.8 fL (80.0-100.0); Mean Platelet Volume 8.1 fL (7.0-11.0); Mono # (Auto) 0.5 th/mm3 (0.0-0.9); Neut # (Auto) 3.9 th/mm3 (1.8-7.7); Neut % (Auto) 52.7 % (16.0-70.0); Platelet Count 271 th/mm3 (150-450); Red Cell Distribution Width 14.7 % (11.6-17.2); White Blood Count 7.5 th/mm3 (4.0-11.0)
--- NOTE | 2018-08-02 13:43 | XR ---
EXAM DATE: 08/02/2018 1:35 PM EST AGE/SEX: 38 years / Female INDICATIONS: Shortness of breath and congestion. CLINICAL DATA: This is the patient's initial encounter. Patient reports that signs and symptoms have been present for 2 days and indicates a pain score of 0/10. MEDICAL/SURGICAL HISTORY: . Hypercholesterolemia. HIV. Neuropathy. . section. Cholecy stectomy. COMPARISON: [facility] [place]ST 1V SINGLE AP, 03/22/2018. [facility] – [place] CHEST PA & LAT, 11/08/2017. . FINDINGS: Portable AP view of the chest demonstrates a normal-sized cardiac silhouette. Hazy pleural-parenchyma l opacity is present both lung bases, new since the prior study. No pneumothorax is identified. Bones demonstrate no acute abnormality. CONCLUSION: Mild hazy opacity at both lung bases may represent small effusions with associated atelectasis or con solidation. Good inspiratory formal PA and lateral views of the chest may further characterize, if ne eded. Electronically signed by: Alexandre Gillespie MD 08/02/2018 1:42 PM EST
[2018-08-02 13:51] LABS: Calcium 8.7 mg/dL (8.5-10.1); Carbon Dioxide 24.7 meq/L (21.0-32.0); Potassium 3.2 meq/L (3.5-5.1)
[2018-08-02] MEDS ORDERED: Azithromycin 250 MG Tablet PO ONE (14:02)
[2018-08-02] MEDS ORDERED: MethylPREDNISolone Sod Succinate Inj 125 MG/2 ML Vial IV.PUSH ONE (17:00)
--- NOTE | 2018-08-02 17:36 | P.HP ---
History of Present Illness Primary Care Physician: UNKNOWN History of Present Illness: 38-year-old white male being admitted for asthma exacerbation Patient was in her usual state of health until 2 days ago when she began experiencing shortness of breath. This worsened with exertion, no relief with home inhalers. Went to her physician's office, was evaluated and instructed to come to the emergency department. Patient reports having URI like symptoms including a stuffy nose for about 1 week, denies any fevers or chills, reports a dry cough this week. She reports some posttussive emesis, otherwise has no nausea. In the emergency department she was found to be wheezing, tachycardic in the 110s. Underwent trial of 3 duo nebs to no significant relief. Given a dose of Decadron. Chest x-ray which I independently reviewed shows diffuse mild infiltrates in both bases but this could be simply due to a penetration technique. Patient was given Rocephin and azithromycin. Patient reports being compliant with her HIV medication regimen, says she had her "levels checked" a month ago and said that they were undetectable in the "good sense." Review of Systems All other systems reviewed negative except as stated in HPI PMFSH - History History Provided By: Patient - Medical History Medical History: Medical History (Last Reviewed 08/02/18 @ 17:34 by Vitaly Wynn MD) HIV disease Hemiplegic migraine High cholesterol Neuropathy - Surgical History Surgical History: Surgical History (Last Reviewed 08/02/18 @ 17:34 by Vitaly Wynn MD) History of Hx of cholecystectomy - Family History Family History: Family History (Last Updated 08/02/18 @ 17:34 by Vitaly Wynn MD) Other Diabetes - Social History I have reviewed the patient's Social History: Yes - Tobacco History Second Hand Smoke Exposure: No Smoking Status: Never smoker - Alcohol History How Often Do You Have a Drink Containing Alcohol: Never - Substance Use History Substance History: No History of Abuse - Travel History Recent Travel in the [place] Within the Last 8 Weeks: No Recent Travel Out of the Country Within the Last 8 Weeks: No - Immunization History Tetanus Immunization: >5 Years Medications and Allergies Active Medications: Active Medications Albuterol (Albuterol Neb (Prn)) 1.25 mg NEB Q2HR NEB PRN PRN Reason: shortness of breath Last Admin: 08/02/18 17:15 Dose: 1.25 mg Albuterol (Duoneb Neb (Leonard)) 1 ampul NEB Q6HR WHILE AWAKE NEB [facility] Amitriptyline HCl (Elavil) 50 mg PO DAILY [facility] Atorvastatin Calcium (Lipitor) 20 mg PO DAILY [facility] Etravirine (Intelence) 200 mg PO BID [facility] Ferrous Sulfate (Ferosul) 325 mg PO DAILY [facility] Folic Acid (Folic Acid) 1 mg PO DAILY [facility] Hydroxyzine HCl (Atarax) 50 mg PO HS [facility] Hydroxyzine HCl (Atarax) 10 mg PO BID@0900,1500 [facility] Ondansetron HCl (Zofran Odt) 4 mg PO TID PRN PRN Reason: NAUSEA Pantoprazole Sodium (Protonix) 20 mg PO DAILY [facility] Paroxetine HCl (Paxil) 20 mg PO DAILY [facility] Pt Own: Darunavir( (Prezista) 150mg) 0 each PO DAILY [facility] Ritonavir (Norvir) 100 mg PO DAILY [facility] Sodium Chloride (Ns Flush) 2 ml IV.FLUSH BID [facility] Sodium Chloride (Ns Flush) 2 ml IV.FLUSH UNSCH PRN PRN Reason: FLUSH AFTER USING IV ACCESS Allergies Allergy/AdvReac Type Severity Reaction Status Date / Time promethazine Allergy Severe incoherent Verified 08/02/18 11:58 Home Medications Medication Instructions Recorded Confirmed Type amitriptyline 50 mg PO DAILY 03/22/18 08/02/18 History atorvastatin 20 mg PO DAILY 03/22/18 08/02/18 History etravirine [Intelence] 200 mg PO BID 03/22/18 08/02/18 History ferrous sulfate [iron] 325 mg PO DAILY 03/22/18 08/02/18 History folic acid 1 mg PO DAILY 03/22/18 08/02/18 History omeprazole 20 mg PO DAILY 03/22/18 08/02/18 History ondansetron HCl [Zofran] 4 mg PO TID PRN 03/22/18 08/02/18 History paroxetine mesylate 20 mg PO DAILY 03/22/18 08/02/18 History ritonavir [Norvir] 100 mg PO DAILY 03/22/18 08/02/18 History hydroxyzine HCl 10 mg PO BID 08/02/18 08/02/18 History hydroxyzine HCl 50 mg PO HS 08/02/18 08/02/18 History raltegravir [Isentress] 400 mg PO BID 08/02/18 08/02/18 History darunavir ethanolate [Prezista] 800 mg PO DAILY 08/03/18 08/03/18 History gabapentin 600 mg PO TID 08/03/18 08/03/18 History Exam Vital signs: Vital Signs 08/02/18 11:40 08/02/18 11:54 08/02/18 12:04 Temperature 98.2 F 97.9 F Pulse Rate 123 H 123 H 111 H Respiratory Rate 18 24 20 Blood Pressure 145/69 H 127/81 Pulse Oximetry 94 L 93 L 08/02/18 14:00 08/02/18 14:52 08/02/18 17:15 Temperature Pulse Rate 118 H 118 H 112 H Respiratory Rate 23 20 20 Blood Pressure 137/80 Pulse Oximetry 95 Intake & Output 08/01/18 08/02/18 08/02/18 18:59 06:59 18:59 Intake Total 100 / 100 Balance 100 / 100 Weight 89.811 kg Intake: IV 100 / 100 Rocephin Inj 1,000 MG In NS Inj 100 / 100 100 ML @ 200 mls/hr IV.SIG ONCE ONE Rx#:[id number] Narrative: VS: afebrile GENERAL: Sitting up in bed, awake, mild distress secondary to shortness of breath and tachycardia SKIN: Warm and dry. EYES: No scleral icterus. No injection or drainage. ENT: No nasal bleeding or discharge. Mucous membranes pink and moist. CARDIOVASCULAR: Tachycardic rate, regular rhythm, no murmurs RESPIRATORY: Mildly labored breathing, expiratory wheezing heard GASTROINTESTINAL: Abdomen soft, non-tender, nondistended. Extremities: No clubbing, cyanosis, or edema. No obvious deformities. MUSCULOSKELETAL: adequate muscle bulk and tone for age and habitus NEUROLOGICAL: Awake and alert. No obvious cranial nerve deficits. No facial droop nor slurred speech noted. PSYCHIATRIC: Appropriate mood and affect; insight and judgment normal. Results - Labs CBC & Chem 7: 08/03/18 13:54 08/04/18 04:05 Labs: Laboratory Results - last 24 hr 08/02/18 08/02/18 13:05 13:05 WBC 7.5 RBC 4.10 Hgb 13.1 Hct 39.2 MCV 95.8 MCH 32.1 MCHC 33.5 RDW 14.7 Plt Count 271 MPV 8.1 Neut % (Auto) 52.7 Lymph % (Auto) 32.2 [place] % (Auto) 7.0 Eos % (Auto) 7.3 H Baso % (Auto) 0.8 Neut # (Auto) 3.9 Lymph # (Auto) 2.4 [place] # (Auto) 0.5 Eos # (Auto) 0.5 H Baso # (Auto) 0.1 WBC Differential . Differential Comment Auto diff final Sodium 139 Potassium 3.2 L Chloride 108 H Carbon Dioxide 24.7 Anion Gap 6 BUN 6 L Creatinine 0.93 Estimated GFR 81 L Random Glucose 135 H Calcium 8.7 - Imaging Impressions Chest X-Ray 08/02/18 12:56 CONCLUSION: Mild hazy opacity at both lung bases may represent small effusions with associated atelectasis or consolidation. Good inspiratory formal PA and lateral views of the chest may further characterize, if needed. Caprini VTE Risk Assessment Caprini VTE Risk Assessment: Moderate/High Risk (score >= 2) Caprini Risk Assessment Model: Point Value = 1 Point Value = 2 Point Value = 3 Point Value = 5 Age 41-60 Minor surgery BMI > 25 kg/m2 Swollen legs Varicose veins or History of unexplained or recurrent spontaneous Oral contraceptives or hormone replacement Sepsis (< 1 month) Serious lung disease, including pneumonia (< 1 month) Abnormal pulmonary function Acute myocardial infarction Congestive heart failure (< 1 month) History of inflammatory bowel disease Medical patient at bed rest Age 61-74 Arthroscopic surgery Major open surgery (> 45 min) Laparoscopic surgery (> 45 min) Malignancy Confined to bed (> 72 hours) Immobilizing plaster cast Central venous access Age >= 75 History of VTE Family history of VTE Factor V Leiden Prothrombin [id number] Lupus anticoagulant Anticardiolipin antibodies Elevated serum homocysteine Heparin-induced thrombocytopenia Other congenital or acquired thrombophilia Stroke (< 1 month) Elective arthroplasty Hip, pelvis, or leg fracture Acute spinal cord injury (< 1 month) Prophylaxis Regimen: Total Risk Factor Score Risk Level Prophylaxis Regimen 0-1 Low Early ambulation 2 Moderate Order ONE of the following: *Sequential Compression Device (SCD) *Heparin 5000 units SQ BID 3-4 Higher Order ONE of the following medications: *Heparin 5000 units SQ TID *Enoxaparin/Lovenox 40 mg SQ daily (WT < 150 kg, CrCl > 30 mL/min) *Enoxaparin/Lovenox 30 mg SQ daily (WT < 150 kg, CrCl > 10-29 mL/min) *Enoxaparin/Lovenox 30 mg SQ BID (WT < 150 kg, CrCl > 30 mL/min) AND/OR *Sequential Compression Device (SCD) 5 or more Highest Order ONE of the following medications: *Heparin 5000 units SQ TID (Preferred with Epidurals) *Enoxaparin/Lovenox 40 mg SQ daily (WT < 150 kg, CrCl > 30 mL/min) *Enoxaparin/Lovenox 30 mg SQ daily (WT < 150 kg, CrCl > 10-29 mL/min) *Enoxaparin/Lovenox 30 mg SQ BID (WT < 150 kg, CrCl > 30 mL/min) AND *Sequential Compression Device (SCD) Assessment and Plan - Plan 38 of life and being admitted for shortness of breath Shortness of breath URI-induced Asthma exacerbation, continue duo nebs, as needed albuterol, scheduled Solu-Medrol -obtain a PA chest x-ray well as pro-calcitonin level to see if this is truly a pneumonia which i doubt Tachycardia Likely secondary to bronchodilators, will monitor on telemetry for resolution, ordering EKG HIV/AIDS Continue home medications, no opportunistic infections evident at this time
--- NOTE | 2018-08-02 18:00 | XR ---
EXAM DATE: 08/02/2018 5:55 PM EST AGE/SEX: 38 years / Female INDICATIONS: . Shortness of breath, chest congestion CLINICAL DATA: This is the patient's initial encounter. Patient reports that signs and symptoms have been present for 2 days and indicates a pain score of 0/10. MEDICAL/SURGICAL HISTORY: . Hypercholesterolemia. HIV. Neuropathy. . section. Cholecy stectomy. [place] [facility] [place]. . FINDINGS: Considerably improved aeration of both lungs, now with very mild bibasilar atelectasis. Questionable nodular opacity right upper lobe, roughly 12 mm in size. No pleural effusion. No pneumothorax. Heart size within normal limits. CONCLUSION: 1. Decreasing bibasilar consolidation, now minimal. 2. Possible mass of the right upper lobe. Noncontrast chest CT is recommended if felt clinically ind icated. Electronically signed by: Alexandre العلي MD 08/02/2018 5:58 PM EST
[2018-08-02] MEDS: Heparin - SQ 10,000 UNITS/ML Vial SQ SCH (21:42)
[2018-08-03] MEDS: Acetaminophen 325 MG Tablet PO PRN (00:13)
[2018-08-03] MEDS: Heparin - SQ 10,000 UNITS/ML Vial SQ SCH ×3 (05:56→22:00)
[2018-08-03] MEDS ORDERED: Butalbital/APAP/Caff 50/325/40 MG Tablet PO ONE (06:31)
[2018-08-03] MEDS ORDERED: MethylPREDNISolone Sod Succinate Inj 125 MG/2 ML Vial IV.PUSH SCH (09:00)
[2018-08-03] MEDS ORDERED: DARUNAVIR PO SCH (09:00)
[2018-08-03] MEDS: Folic Acid 1 MG Tablet PO SCH (10:38)
[2018-08-03] MEDS: Ferrous Sulfate 325 MG Tablet PO SCH (10:38)
[2018-08-03] MEDS: Pantoprazole Sodium 20 MG DR Tablet PO SCH (10:39)
[2018-08-03 11:11] LABS: Magnesium 2.1 mg/dL (1.5-2.5); Thyroid Stimulating Hormone 0.54 uIU/mL (0.358-3.740)
--- NOTE | 2018-08-03 11:57 | P.PN ---
Subjective Interval history: Nursing reports that the patient is complaining of feeling worse today than yesterday, has a headache, still feels short of breath. I talked to the patient she says she feels like her shortness of breath is unchanged even though I talked to her she is markedly less labored than per my assessment yesterday. Physical Exam Vital signs: Vital Signs 08/02/18 11:54 08/02/18 12:04 08/02/18 14:00 Temperature 97.9 F Pulse Rate 123 H 111 H 118 H Respiratory Rate 24 20 23 Blood Pressure 127/81 Pulse Oximetry 93 L 08/02/18 14:52 08/02/18 17:15 08/02/18 17:42 Temperature Pulse Rate 118 H 112 H 124 H Respiratory Rate 20 20 Blood Pressure 137/80 Pulse Oximetry 95 08/02/18 18:20 08/02/18 19:57 08/02/18 20:55 Temperature 98.6 F Pulse Rate 122 H 121 H 110 H Respiratory Rate 18 20 20 Blood Pressure 109/69 117/57 L Pulse Oximetry 97 96 08/03/18 00:00 08/03/18 04:00 08/03/18 04:44 Temperature 98.4 F 98.5 F Pulse Rate 121 H 114 H 116 H Respiratory Rate 17 16 20 Blood Pressure 111/55 L 105/64 Pulse Oximetry 94 L 94 L 94 L 08/03/18 07:49 08/03/18 08:19 Temperature 98.3 F Pulse Rate 116 H 112 H Respiratory Rate 20 18 Blood Pressure 98/57 L Pulse Oximetry 95 Intake & Output 08/02/18 08/03/18 08/03/18 18:59 06:59 18:59 Intake Total 100 / 100 Balance 100 / 100 Weight 89.811 kg 89.811 kg Intake: IV 100 / 100 Rocephin Inj 1,000 MG In NS Inj 100 / 100 100 ML @ 200 mls/hr IV.SIG ONCE ONE Rx#:[id number] Other: Weight On Admission 89.811 kg Narrative: Diffuse expiratory wheezing, largely unchanged yesterday Minimally labored breathing today, no conversive dyspnea Patient has a towel over her forehead No lower extremity edema Heart sounds regular rate and rhythm, no murmurs Results - Labs CBC & Chem 7: 08/03/18 13:54 08/03/18 13:54 Laboratory Results - last 24 hr 08/02/18 08/02/18 08/02/18 13:05 13:05 18:00 WBC 7.5 RBC 4.10 Hgb 13.1 Hct 39.2 MCV 95.8 MCH 32.1 MCHC 33.5 RDW 14.7 Plt Count 271 MPV 8.1 Neut % (Auto) 52.7 Lymph % (Auto) 32.2 [place] % (Auto) 7.0 Eos % (Auto) 7.3 H Baso % (Auto) 0.8 Neut # (Auto) 3.9 Lymph # (Auto) 2.4 [place] # (Auto) 0.5 Eos # (Auto) 0.5 H Baso # (Auto) 0.1 WBC Differential . Differential Comment Auto diff final D-Dimer Quant (PE/DVT) Sodium 139 Potassium 3.2 L Chloride 108 H Carbon Dioxide 24.7 Anion Gap 6 BUN 6 L Creatinine 0.93 Estimated GFR 81 L Random Glucose 135 H Calcium 8.7 Magnesium 2.1 Procalcitonin Less than 0.02 TSH 0.540 08/02/18 23:48 WBC RBC Hgb Hct MCV MCH MCHC RDW Plt Count MPV Neut % (Auto) Lymph % (Auto) [place] % (Auto) Eos % (Auto) Baso % (Auto) Neut # (Auto) Lymph # (Auto) [place] # (Auto) Eos # (Auto) Baso # (Auto) WBC Differential Differential Comment D-Dimer Quant (PE/DVT) 0.28 Sodium Potassium Chloride Carbon Dioxide Anion Gap BUN Creatinine Estimated GFR Random Glucose Calcium Magnesium Procalcitonin TSH Microbiology 08/02/18 13:15 Nasal Wash Influenza Types A,B Antigen - Final Negative for FLU A and B antigen Infection due to influenza A or B cannot be ruled out since the antigen present in the sample may be below the detection limit of the test. - Imaging Impressions Chest X-Ray 08/02/18 00:00 CONCLUSION: 1. Decreasing bibasilar consolidation, now minimal. 2. Possible mass of the right upper lobe. Noncontrast chest CT is recommended if felt clinically indicated. Chest X-Ray 08/02/18 12:56 CONCLUSION: Mild hazy opacity at both lung bases may represent small effusions with associated atelectasis or consolidation. Good inspiratory formal PA and lateral views of the chest may further characterize, if needed. Assessment and Plan - Plan 38 of life and being admitted for shortness of breath, HIV Shortness of breath Asthma exacerbation 2/2 URI, continue duo nebs, as needed albuterol, scheduled Solu-Medrol -PA chest x-ray is negative for any acute infiltrate, will calcitonin within normal, will stop antibiotics, continue high-dose Solu-Medrol Tachycardia EKG which had been reviewed yesterday shows sinus tachycardia with no findings concerning for ischemia or infarction, magnesium and TSH within normal limits, I will obtain a CTA pulmonary angiogram to rule out pulmonary embolism despite a normal d-dimer given the patient's atypical medical history and her persistent tachycardia and overall unchanged subjective symptoms. I spoke with the [employer] technical lead senior developer on the phone around 12:57 PM to reiterate they get the image done STAT HIV/AIDS Continue home medications, no opportunistic infections evident at this time Addendum: CTA is negative for pulmonary embolism, I personally reviewed and see no acute infiltrates either. Her tachycardia is still persistent in the 110s, troponin is negative. Lactic acid minimally elevated at 3.9. Case discussed with toy packer, I will transfer the patient to the ICU and keep her under hospitalist service for now, consulting pulmonology for recommendations as well as BiPAP as well as resuming antibiotics per toy packer recs.
[2018-08-03] MEDS ORDERED: Azithromycin Inj 500 MG in Sodium Chlor 0.9% Inj 250 ML IV.SIG SCH (13:00)
--- NOTE | 2018-08-03 13:46 | CT ---
EXAM DATE: 08/03/2018 1:41 PM EST AGE/SEX: 38 years / Female INDICATIONS: Right sided chest pain. CLINICAL DATA: This is the patient's initial encounter. Patient reports that signs and symptoms have been present for 1 day and indicates a pain score of 6/10. MEDICAL/SURGICAL HISTORY: HIV. section. Cholecystectomy. RADIATION DOSE: 10.37 CTDI (mGy) COMPARISON: No prior exams available for comparison. TECHNIQUE: Volumetric scanning was performed using a multi-row detector CT scanner during bolus infu brad of 70 ml Omnipaque 350 (iohexol) nonionic water-soluble contrast as a single exam dose. The yaritza a was post processed with a variety of visualization algorithms including full volume maximum intensi ty projection and sliding thin slab reformation. Using automated exposure control and adjustment of t he mA and/or kV according to patient size, radiation dose was kept as low as reasonably achievable to obtain optimal diagnostic quality images. DICOM format image data is available electronically for r eview and comparison. FINDINGS: Pulmonary Arteries: No filling defects are seen in the pulmonary arteries out to the subsegmental ve ssels. The left and right pulmonary arteries are normal in diameter. Lung: Minimal subsegmental infiltrate is identified in the left upper lobe Effusion: None. Mediastinum: No evidence of mediastinal or hilar adenopathy. Other: The axilla is unremarkable. CONCLUSION: 1. No evidence of pulmonary embolism. 2. Subsegmental infiltrate left upper lobe. Electronically signed by: Alexis Ramos MD 08/03/2018 1:45 PM EST
[2018-08-03 14:09] LABS: Baso # (Auto) 0.1 th/mm3 (0.0-0.2); Baso % (Auto) 0.2 % (0.0-2.0); Hematocrit 38.1 % (35.0-46.0); Hemoglobin 12.5 gm/dL (11.6-15.3); Lymph # (Auto) 1.4 th/mm3 (1.0-4.8); Lymph % (Auto) 6.9 % (9.0-44.0); Mean Corpuscular HGB Conc 32.7 % (32.0-36.0); Mean Corpuscular Hemoglobin 31.8 pg (27.0-34.0); Mean Corpuscular Volume 97.1 fL (80.0-100.0); Mono # (Auto) 0.4 th/mm3 (0.0-0.9); Mono % (Auto) 1.8 % (0.0-8.0); Neut # (Auto) 18.9 th/mm3 (1.8-7.7); Neut % (Auto) 91.1 % (16.0-70.0); Platelet Count 292 th/mm3 (150-450); Red Blood Count 3.92 mil/mm3 (4.00-5.30); Red Cell Distribution Width 15.2 % (11.6-17.2); White Blood Count 20.7 th/mm3 (4.0-11.0)
[2018-08-03 14:25] LABS: Alanine Aminotransferase 22 U/L (10-53); Albumin 3.2 g/dL (3.4-5.0); Anion Gap 12 meq/L (5-15); Aspartate Aminotransferase 13 U/L (15-37); Blood Urea Nitrogen 9 mg/dL (7-18); Calcium 8.7 mg/dL (8.5-10.1); Carbon Dioxide 21.1 meq/L (21.0-32.0); Chloride 107 meq/L (98-107); Glomerular Filtration Rate 79 mL/min (>89); Glucose,Random 168 mg/dL (74-106); Potassium 4.4 meq/L (3.5-5.1); Sodium 140 meq/L (136-145)
[2018-08-03 14:29] LABS: Alkaline Phosphatase 127 U/L (45-117); Total Protein 7.4 g/dL (6.4-8.2)
[2018-08-03] MEDS: Sod Chloride 0.9% Inj 1,000 ML IV.CONT SCH (15:38)
--- NOTE | 2018-08-03 17:46 | ECG ---
Date Performed: 08/02/2018 Time Performed: 21:24:53 PTAGE: 38 years EKG: SINUS TACHYCARDIA NONSPECIFIC T-WAVE ABNORMALITY Since the previous tracing, no significant change noted ABNORMAL RHYTHM ECG PREVIOUS TRACING : 03/22/2018 11.00 DOCTOR: Michael Del Rosario Interpretating Date/Time 08/03/2018 17:31:55
[2018-08-03 18:07] LABS: ABG Base Excess -2.8 mmol/L (-2-2); ABG PCO2 33 mmHg (38-42); ABG PO2 68 mmHg (61-120)
[2018-08-03] MEDS: Azithromycin Inj 500 MG in Sodium Chlor 0.9% Inj 250 ML IV.SIG SCH (18:22)
[2018-08-03] MEDS: Gabapentin 300 MG Capsule PO SCH (18:22)
[2018-08-03] MEDS: MethylPREDNISolone Sod Succinate Inj 40 MG/ML Vial IV.PUSH SCH (20:25)
[2018-08-03] MEDS ORDERED: ALPRAZolam 0.5 MG Tablet PO ONE (22:35)
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
[2018-08-04] MEDS: MethylPREDNISolone Sod Succinate Inj 40 MG/ML Vial IV.PUSH SCH ×4 (02:15→22:13)
[2018-08-04] MEDS: Chlorhexidine Gluconate 2% 1 Pack (2 Cloths) TOPICAL SCH (04:00)
[2018-08-04] MEDS ORDERED: Chlorhexidine Gluconate 2% 1 Pack (2 Cloths) TOPICAL PRN (04:00)
[2018-08-04 04:43] LABS: Calcium 8.3 mg/dL (8.5-10.1); Carbon Dioxide 22.2 meq/L (21.0-32.0); Potassium 4.3 meq/L (3.5-5.1)
[2018-08-04] MEDS: Heparin - SQ 10,000 UNITS/ML Vial SQ SCH ×3 (06:36→22:20)
[2018-08-04] MEDS: Gabapentin 300 MG Capsule PO SCH ×3 (08:17→17:11)
[2018-08-04] MEDS: Pantoprazole Sodium 20 MG DR Tablet PO SCH (08:18)
[2018-08-04] MEDS: Ferrous Sulfate 325 MG Tablet PO SCH (08:18)
[2018-08-04] MEDS: Folic Acid 1 MG Tablet PO SCH (08:19)
[2018-08-04] MEDS ORDERED: LORazepam 1 MG Tablet PO ONE (11:01)
[2018-08-04] MEDS: Sod Chloride 0.9% Inj 1,000 ML IV.CONT SCH ×2 (13:55→22:12)
--- NOTE | 2018-08-04 14:17 | ECHRPT ---
Indication: SOB CONCLUSIONS Normal left ventricular size. Wall thickness is normal. The left ventricular systolic function is normal with an estimated ejection fraction in the range of 55-60%. BP: / HR: Rhythm: Sinus MEASUREMENTS (Male / Female) Normal Values Technical Quality:Fair 2D ECHO LV Diastolic Diameter PLAX 4.8 cm 4.2 - 5.9 / 3.9 - 5.3 cm LV Systolic Diameter PLAX 3.6 cm IVS Diastolic Thickness 0.8 cm 0.6 - 1.0 / 0.6 - 0.9 cm LVPW Diastolic Thickness 0.8 cm 0.6 - 1.0 / 0.6 - 0.9 cm LV Relative Wall Thickness 0.3 RV Internal Dim ED PLAX 3.1 cm LVOT Diameter 1.9 cm Aortic Root Diameter 2.9 cm LA Systolic Diameter LX 2.8 cm 3.0 - 4.0 / 2.7 - 3.8 cm M-MODE AV Cusp Separation MM 2.0 cm DOPPLER AV Peak Velocity 156.0 cm/s AV Peak Gradient 9.7 mmHg AV Mean Gradient 5.0 mmHg AV Velocity Time Integral 22.1 cm LVOT Peak Velocity 102.0 cm/s LVOT Peak Gradient 4.2 mmHg LVOT Velocity Time Integral 16.2 cm AV Area Cont Eq vti 2.1 cm AV Area Cont Eq pk 1.9 cm Mitral E Point Velocity 85.9 cm/s Mitral A Point Velocity 107.0 cm/s Mitral E to A Ratio 0.8 LV E' Lateral Velocity 15.9 cm/s Mitral E to LV E' Lateral Ratio 5.4 LV E' Septal Velocity 17.4 cm/s Mitral E to LV E' Septal Ratio 4.9 PV Peak Velocity 59.4 cm/s PV Peak Gradient 1.4 mmHg FINDINGS LEFT VENTRICLE Normal left ventricular size. Wall thickness is normal. The left ventricular systolic function is normal with an estimated ejection fraction in the range of 55-60%. RIGHT VENTRICLE Normal right ventricular size and systolic function. LEFT ATRIUM The left atrial size is normal. RIGHT ATRIUM The right atrial size is normal. ATRIAL SEPTUM Normal atrial septal thickness without atrial level shunting by limited color doppler interrogation. AORTA The aortic root and proximal ascending aorta are normal in size on limited imaging. MITRAL VALVE Structurally normal mitral valve. No mitral valve stenosis or regurgitation. AORTIC VALVE Trileaflet aortic valve. No aortic valve stenosis or regurgitation. TRICUSPID VALVE Structurally normal tricuspid valve. No tricuspid valve stenosis or regurgitation. PULMONARY VALVE The pulmonary valve is not well visualized. VESSELS The inferior vena cava is normal in size. PERICARDIUM No pericardial effusion. Brandan Vallecillo MD, FACC (Electronically Signed) Final Date:04 August 2018 14:16
--- NOTE | 2018-08-04 15:25 | P.PNPL ---
Subjective Interval history: 38 YOAA female with HIV,Br asthma with SOB,Wheezing has back pain No Fever Weaned to RA Still has wheezing Echo EF 55-60% Physical Exam Vital signs: Vital Signs 08/03/18 16:11 08/03/18 18:30 08/03/18 19:00 Temperature 98.3 F 98.1 F Pulse Rate 122 H 115 H 113 H Respiratory Rate 20 28 H 24 Blood Pressure 115/61 128/80 115/72 Pulse Oximetry 95 96 96 08/03/18 20:00 08/03/18 20:57 08/03/18 21:00 Temperature Pulse Rate 115 H 110 H 107 H Respiratory Rate 24 20 25 H Blood Pressure 126/75 127/77 Pulse Oximetry 95 97 95 08/03/18 21:01 08/03/18 22:00 08/03/18 22:45 Temperature Pulse Rate 105 H 106 H Respiratory Rate 25 H 23 Blood Pressure Pulse Oximetry 95 95 96 08/03/18 23:00 08/03/18 23:17 08/04/18 00:00 Temperature Pulse Rate 106 H 104 H 112 H Respiratory Rate 21 19 17 Blood Pressure 122/68 119/73 Pulse Oximetry 96 95 95 08/04/18 01:00 08/04/18 01:09 08/04/18 02:00 Temperature Pulse Rate 105 H 107 H 105 H Respiratory Rate 17 19 18 Blood Pressure 124/72 Pulse Oximetry 95 94 L 96 08/04/18 02:14 08/04/18 03:00 08/04/18 03:15 Temperature Pulse Rate 108 H 103 H 100 H Respiratory Rate 21 18 18 Blood Pressure 98/63 L Pulse Oximetry 95 94 L 95 08/04/18 04:00 08/04/18 05:00 08/04/18 05:52 Temperature Pulse Rate 94 H 100 H 102 H Respiratory Rate 17 18 19 Blood Pressure 113/76 Pulse Oximetry 96 96 95 08/04/18 06:00 08/04/18 07:00 08/04/18 08:00 Temperature Pulse Rate 100 H 94 H 101 H Respiratory Rate 20 18 20 Blood Pressure Pulse Oximetry 94 L 94 L 96 08/04/18 09:00 08/04/18 09:16 08/04/18 10:00 Temperature Pulse Rate 101 H 100 H 111 H Respiratory Rate 24 22 25 H Blood Pressure Pulse Oximetry 96 96 08/04/18 10:53 08/04/18 11:00 08/04/18 11:06 Temperature Pulse Rate 109 H 112 H 103 H Respiratory Rate 24 23 20 Blood Pressure 114/64 104/63 Pulse Oximetry 96 94 L 96 08/04/18 12:00 08/04/18 13:00 Temperature 97.6 F Pulse Rate 110 H 103 H Respiratory Rate 18 23 Blood Pressure 112/59 L 118/72 Pulse Oximetry 95 95 Intake & Output 08/03/18 08/04/18 08/04/18 18:59 06:59 18:59 Intake Total 710 / 710 Output Total 200 / 200 600 / 600 Balance -200 / -200 110 / 110 Weight 90 kg Intake: IV 350 / 350 Azithromycin Inj 500 MG In NS 250 / 250 Inj 250 ML @ 250 mls/hr IV.SIG Q24H [facility] Rx#:[id number] Rocephin Inj 1,000 MG In NS Inj 100 / 100 100 ML @ 200 mls/hr IV.SIG Q24H [facility] Rx#:[id number] Oral 360 / 360 Output: Urine 200 / 200 600 / 600 Other: Date of Last Bowel Movement 08/02/18 08/02/18 08/02/18 GENERAL: WBWN Aa female, mild sob SKIN: Warm and dry. HEAD: Normocephalic. EYES: No scleral icterus. No injection or drainage. NECK: Supple, trachea midline. No JVD or lymphadenopathy. CARDIOVASCULAR: Regular rate and rhythm without murmurs, gallops, or rubs. RESPIRATORY: Breath sounds equal bilaterally. No accessory muscle use. Exp rhonchi GASTROINTESTINAL: Abdomen soft, non-tender, nondistended. MUSCULOSKELETAL: No cyanosis, or edema. BACK: Nontender without obvious deformity. No CVA tenderness. Assessment and Plan - Plan IMPRESSION: 1. Bronchial asthma exacerbation. 2. Left upper lobe infiltrate. 3. Human immunodeficiency virus disease. 4. Hypertension. 5. Obesity PLAN: Aerosol nebs IV Steroids Solumedrol 60 mg q 6 hrs Heparin 5000 IU q 12 hrs Cont Abx Rocephin and Zithro Symbicort 2 puffs bid
[2018-08-04] MEDS: Azithromycin Inj 500 MG in Sodium Chlor 0.9% Inj 250 ML IV.SIG SCH (17:10)
--- NOTE | 2018-08-04 20:31 | P.PN ---
Physical Exam Vital signs: Vital Signs 08/03/18 20:57 08/03/18 21:00 08/03/18 21:01 Temperature Pulse Rate 110 H 107 H 105 H Respiratory Rate 20 25 H 25 H Blood Pressure 127/77 Pulse Oximetry 97 95 95 08/03/18 22:00 08/03/18 22:45 08/03/18 23:00 Temperature Pulse Rate 106 H 106 H Respiratory Rate 23 21 Blood Pressure Pulse Oximetry 95 96 96 08/03/18 23:17 08/04/18 00:00 08/04/18 01:00 Temperature Pulse Rate 104 H 112 H 105 H Respiratory Rate 19 17 17 Blood Pressure 122/68 119/73 Pulse Oximetry 95 95 95 08/04/18 01:09 08/04/18 02:00 08/04/18 02:14 Temperature Pulse Rate 107 H 105 H 108 H Respiratory Rate 19 18 21 Blood Pressure 124/72 98/63 L Pulse Oximetry 94 L 96 95 08/04/18 03:00 08/04/18 03:15 08/04/18 04:00 Temperature Pulse Rate 103 H 100 H 94 H Respiratory Rate 18 18 17 Blood Pressure Pulse Oximetry 94 L 95 96 08/04/18 05:00 08/04/18 05:52 08/04/18 06:00 Temperature Pulse Rate 100 H 102 H 100 H Respiratory Rate 18 19 20 Blood Pressure 113/76 Pulse Oximetry 96 95 94 L 08/04/18 07:00 08/04/18 08:00 08/04/18 09:00 Temperature Pulse Rate 94 H 101 H 101 H Respiratory Rate 18 20 24 Blood Pressure Pulse Oximetry 94 L 96 96 08/04/18 09:16 08/04/18 10:00 08/04/18 10:53 Temperature Pulse Rate 100 H 111 H 109 H Respiratory Rate 22 25 H 24 Blood Pressure 114/64 Pulse Oximetry 96 96 08/04/18 11:00 08/04/18 11:06 08/04/18 12:00 Temperature 97.6 F Pulse Rate 112 H 103 H 110 H Respiratory Rate 23 20 18 Blood Pressure 104/63 112/59 L Pulse Oximetry 94 L 96 95 08/04/18 13:00 08/04/18 14:00 08/04/18 15:00 Temperature Pulse Rate 103 H 102 H 102 H Respiratory Rate 23 25 H 25 H Blood Pressure 118/72 118/71 117/70 Pulse Oximetry 95 96 95 08/04/18 15:34 08/04/18 16:00 08/04/18 16:35 Temperature 97.9 F Pulse Rate 98 H 96 H 105 H Respiratory Rate 27 H 23 29 H Blood Pressure 117/76 Pulse Oximetry 94 L 95 08/04/18 17:00 08/04/18 17:09 08/04/18 18:00 Temperature Pulse Rate 98 H 99 H 114 H Respiratory Rate 25 H 23 Blood Pressure 122/78 Pulse Oximetry 95 95 Intake & Output 08/04/18 08/04/18 08/05/18 06:59 18:59 06:59 Intake Total 710 / 710 480 / 480 Output Total 600 / 600 Balance 110 / 110 480 / 480 Weight 90 kg Intake: IV 350 / 350 Azithromycin Inj 500 MG In NS 250 / 250 Inj 250 ML @ 250 mls/hr IV.SIG Q24H [facility] Rx#:[id number] Rocephin Inj 1,000 MG In NS Inj 100 / 100 100 ML @ 200 mls/hr IV.SIG Q24H [facility] Rx#:[id number] Oral 360 / 360 480 / 480 Output: Urine 600 / 600 Other: # Voids 2 Date of Last Bowel Movement 08/02/18 08/04/18 # Bowel Movements 1 Results - Labs CBC & Chem 7: 08/03/18 13:54 08/04/18 04:05 Laboratory Results - last 24 hr 08/03/18 08/04/18 08/04/18 18:32 04:05 04:05 Sodium 142 Potassium 4.3 Chloride 109 H Carbon Dioxide 22.2 Anion Gap 11 BUN 13 Creatinine 0.87 Estimated GFR 87 L Random Glucose 138 H Lactic Acid 2.5 H Calcium 8.3 L Nasal Screen MRSA (PCR) Not detected Microbiology 08/03/18 16:26 Blood - Peripheral Aerobic Blood Culture - Preliminary No growth in 1 day 08/03/18 16:26 Blood - Peripheral Anaerobic Blood Culture - Preliminary No growth in 1 day 08/03/18 16:20 Blood - Peripheral Aerobic Blood Culture - Preliminary No growth in 1 day 08/03/18 16:20 Blood - Peripheral Anaerobic Blood Culture - Preliminary No growth in 1 day Assessment and Plan - Plan 38 of life and being admitted for shortness of breath Shortness of breath URI-induced Asthma exacerbation, continue duo nebs, as needed albuterol, scheduled Solu-Medrol, pulmonology following -CXR unremarkable, CTA neg for PE but radiology read indicates possible pNA, -restarting zithromax and rocephin Lactic acidosis -unclear etiology at this point, slowly trending down w/ IVFs -blood cultures ordered yesterday, ordering CK level for jah AM -trend in AM leukocytosis -suspect 2/2 steroid use, trend in AM Tachycardia ? anxiety component, giving additional 1x vistaril and ativan, consulting psychiatry -CTA neg for PE, echo wnl -keep on telemetry HIV/AIDS Continue home medications, no opportunistic infections evident at this time
[2018-08-04] MEDS: Budesonide-Formoterol 160/4.5 MCG 6 GM Inhaler INH SCH (22:16)
[2018-08-04] MEDS ORDERED: LORazepam 1 MG Tablet PO PRN (22:55)
[2018-08-05] MEDS: MethylPREDNISolone Sod Succinate Inj 40 MG/ML Vial IV.PUSH SCH ×4 (02:41→21:57)
[2018-08-05] MEDS: Chlorhexidine Gluconate 2% 1 Pack (2 Cloths) TOPICAL SCH (04:59)
[2018-08-05] MEDS: Heparin - SQ 10,000 UNITS/ML Vial SQ SCH ×3 (05:56→21:56)
[2018-08-05 07:58] LABS: Anion Gap 8 meq/L (5-15); Blood Urea Nitrogen 13 mg/dL (7-18); Calcium 7.8 mg/dL (8.5-10.1); Carbon Dioxide 24.8 meq/L (21.0-32.0); Chloride 110 meq/L (98-107); Glomerular Filtration Rate Greater Than 89 mL/min (>89); Glucose,Random 137 mg/dL (74-106); Sodium 143 meq/L (136-145)
[2018-08-05 08:14] LABS: Creatine Kinase 58 U/L (26-192)
[2018-08-05] MEDS: Ferrous Sulfate 325 MG Tablet PO SCH (09:16)
[2018-08-05] MEDS: Folic Acid 1 MG Tablet PO SCH (09:16)
[2018-08-05] MEDS: Gabapentin 300 MG Capsule PO SCH ×3 (09:16→17:42)
[2018-08-05] MEDS: Pantoprazole Sodium 20 MG DR Tablet PO SCH (09:17)
[2018-08-05] MEDS: Acetaminophen 325 MG Tablet PO PRN ×2 (09:18→18:38)
--- NOTE | 2018-08-05 10:03 | P.PN ---
Subjective Interval history: Nursing denies any acute changes overnight. Says that the heart rate is not going higher than 104. Patient herself says she feels less winded today, says she still thinks it is a workout just getting up and going to the bathroom/ commode. Physical Exam Vital signs: Vital Signs 08/04/18 10:53 08/04/18 11:00 08/04/18 11:06 Temperature Pulse Rate 109 H 112 H 103 H Respiratory Rate 24 23 20 Blood Pressure 114/64 104/63 Pulse Oximetry 96 94 L 96 08/04/18 12:00 08/04/18 13:00 08/04/18 14:00 Temperature 97.6 F Pulse Rate 110 H 103 H 102 H Respiratory Rate 18 23 25 H Blood Pressure 112/59 L 118/72 118/71 Pulse Oximetry 95 95 96 08/04/18 15:00 08/04/18 15:34 08/04/18 16:00 Temperature 97.9 F Pulse Rate 102 H 98 H 96 H Respiratory Rate 25 H 27 H 23 Blood Pressure 117/70 Pulse Oximetry 95 94 L 08/04/18 16:35 08/04/18 17:00 08/04/18 17:09 Temperature Pulse Rate 105 H 98 H 99 H Respiratory Rate 29 H 25 H 23 Blood Pressure 117/76 122/78 Pulse Oximetry 95 95 95 08/04/18 18:00 08/04/18 19:00 08/04/18 20:00 Temperature 98 F Pulse Rate 114 H 109 H 105 H Respiratory Rate 17 28 H Blood Pressure Pulse Oximetry 94 L 95 08/04/18 21:00 08/04/18 21:06 08/04/18 22:00 Temperature Pulse Rate 105 H 106 H 105 H Respiratory Rate 25 H 21 26 H Blood Pressure Pulse Oximetry 94 L 96 08/04/18 23:00 08/04/18 23:41 08/05/18 00:00 Temperature 98 F Pulse Rate 101 H 97 H Respiratory Rate 24 20 Blood Pressure Pulse Oximetry 95 96 96 08/05/18 01:00 08/05/18 01:19 08/05/18 01:59 Temperature Pulse Rate 97 H 96 H 92 H Respiratory Rate 17 17 17 Blood Pressure 122/80 Pulse Oximetry 93 L 93 L 94 L 08/05/18 02:00 08/05/18 03:00 08/05/18 03:05 Temperature Pulse Rate 95 H 94 H 93 H Respiratory Rate 17 37 H 19 Blood Pressure 110/74 121/80 Pulse Oximetry 95 96 08/05/18 03:38 08/05/18 03:53 08/05/18 04:00 Temperature 98 F Pulse Rate 96 H 91 H Respiratory Rate 23 20 Blood Pressure 154/103 H 147/90 H Pulse Oximetry 96 97 97 08/05/18 05:00 08/05/18 06:00 08/05/18 07:46 Temperature Pulse Rate 90 93 H 96 H Respiratory Rate 17 18 18 Blood Pressure 144/94 H 142/92 H Pulse Oximetry 95 96 96 08/05/18 09:23 Temperature Pulse Rate 97 H Respiratory Rate 20 Blood Pressure Pulse Oximetry Intake & Output 08/04/18 08/05/18 08/05/18 18:59 06:59 18:59 Intake Total 1480 / 1480 830 / 830 Output Total 1200 / 1200 Balance 1480 / 1480 -370 / -370 Weight 90.5 kg Intake: IV 1000 / 1000 350 / 350 NS Inj 1,000 ML @ 42 mls/hr IV. 1000 / 1000 CONT .[id number] [facility] Rx#:[id number] Azithromycin Inj 500 MG In NS 250 / 250 Inj 250 ML @ 250 mls/hr IV.SIG Q24H [facility] Rx#:[id number] Rocephin Inj 1,000 MG In NS Inj 100 / 100 100 ML @ 200 mls/hr IV.SIG Q24H [facility] Rx#:[id number] Oral 480 / 480 480 / 480 Output: Urine 1200 / 1200 Other: # Voids 2 2 Date of Last Bowel Movement 08/04/18 08/04/18 # Bowel Movements 1 Narrative: No conversive dyspnea this morning Minimally labored breathing, still has diffuse expiratory wheezing Awake and alert Heart sounds regular rate and rhythm Results - Labs CBC & Chem 7: 08/03/18 13:54 08/05/18 07:05 Laboratory Results - last 24 hr 08/05/18 08/05/18 07:05 07:05 Sodium 143 Potassium 4.0 Chloride 110 H Carbon Dioxide 24.8 Anion Gap 8 BUN 13 Creatinine 0.82 Estimated GFR Greater than 89 Random Glucose 137 H Lactic Acid 2.7 H Calcium 7.8 L Total Creatine Kinase 58 Microbiology 08/03/18 16:26 Blood - Peripheral Aerobic Blood Culture - Preliminary No growth in 1 day 08/03/18 16:26 Blood - Peripheral Anaerobic Blood Culture - Preliminary No growth in 1 day 08/03/18 16:20 Blood - Peripheral Aerobic Blood Culture - Preliminary No growth in 1 day 08/03/18 16:20 Blood - Peripheral Anaerobic Blood Culture - Preliminary No growth in 1 day Assessment and Plan - Plan 38 of life and being admitted for shortness of breath Shortness of breath URI-induced Asthma exacerbation, continue duo nebs, as needed albuterol, Atrovent -Spacing out Solu-Medrol from every 6 to every 8 hours today, pulmonology following -CXR unremarkable, CTA neg for PE but radiology read indicates possible pNA, -zithromax and rocephin Lactic acidosis -unclear etiology at this point, slowly trending down w/ IVFs -I suspect this is secondary to antiretrovirals as opposed to any true sepsis leukocytosis -suspect 2/2 steroid use, trend in AM Tachycardia ? anxiety component, continue home hydroxyzine, psychiatry consultation pending -CTA neg for PE, echo wnl -Improving this morning, possibly secondary to severe asthma exacerbation -Discussed with pharmacy, only HIV medication with significant adverse effect that may cause tachycardia as patient's ritonavir and only 2% prevalence noted in postmarketing studies HIV/AIDS Continue home medications, no opportunistic infections evident at this time
[2018-08-05] MEDS: Budesonide-Formoterol 160/4.5 MCG 6 GM Inhaler INH SCH ×2 (10:09→21:56)
[2018-08-05 11:00] LABS: Baso % (Auto) 0.2 % (0.0-2.0); Hematocrit 38.3 % (35.0-46.0); Hemoglobin 12.5 gm/dL (11.6-15.3); Lymph # (Auto) 1.7 th/mm3 (1.0-4.8); Lymph % (Auto) 10.6 % (9.0-44.0); Mean Corpuscular HGB Conc 32.7 % (32.0-36.0); Mean Corpuscular Hemoglobin 31.5 pg (27.0-34.0); Mean Corpuscular Volume 96.3 fL (80.0-100.0); Mean Platelet Volume 7.9 fL (7.0-11.0); Mono # (Auto) 0.5 th/mm3 (0.0-0.9); Neut # (Auto) 14.1 th/mm3 (1.8-7.7); Neut % (Auto) 86.2 % (16.0-70.0); Platelet Count 278 th/mm3 (150-450); Red Blood Count 3.98 mil/mm3 (4.00-5.30); Red Cell Distribution Width 15.1 % (11.6-17.2); White Blood Count 16.4 th/mm3 (4.0-11.0)
[2018-08-05 11:51] LABS: Lymphocytes 5 % (9-44); Myelocytes 2 % (0-0)
[2018-08-05 11:52] LABS: Platelet Estimate Normal (Normal); Platelet Morphology Normal (Normal); RBC Morphology Normal (Normal)
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
[2018-08-05] MEDS: Sod Chloride 0.9% Inj 1,000 ML IV.CONT SCH (13:52)
--- NOTE | 2018-08-05 16:23 | P.PNPL ---
Subjective Interval history: 38 YOAA female with HIV,Br asthma with SOB,Wheezing has back pain No Fever Weaned to RA Still has wheezing Echo EF 55-60% Used CPAP last night Physical Exam Vital signs: Vital Signs 08/04/18 16:35 08/04/18 17:00 08/04/18 17:09 Temperature Pulse Rate 105 H 98 H 99 H Respiratory Rate 29 H 25 H 23 Blood Pressure 117/76 122/78 Pulse Oximetry 95 95 95 08/04/18 18:00 08/04/18 19:00 08/04/18 20:00 Temperature 98 F Pulse Rate 114 H 109 H 105 H Respiratory Rate 17 28 H Blood Pressure Pulse Oximetry 94 L 95 08/04/18 21:00 08/04/18 21:06 08/04/18 22:00 Temperature Pulse Rate 105 H 106 H 105 H Respiratory Rate 25 H 21 26 H Blood Pressure Pulse Oximetry 94 L 96 08/04/18 23:00 08/04/18 23:41 08/05/18 00:00 Temperature 98 F Pulse Rate 101 H 97 H Respiratory Rate 24 20 Blood Pressure Pulse Oximetry 95 96 96 08/05/18 01:00 08/05/18 01:19 08/05/18 01:59 Temperature Pulse Rate 97 H 96 H 92 H Respiratory Rate 17 17 17 Blood Pressure 122/80 Pulse Oximetry 93 L 93 L 94 L 08/05/18 02:00 08/05/18 03:00 08/05/18 03:05 Temperature Pulse Rate 95 H 94 H 93 H Respiratory Rate 17 37 H 19 Blood Pressure 110/74 121/80 Pulse Oximetry 95 96 08/05/18 03:38 08/05/18 03:53 08/05/18 04:00 Temperature 98 F Pulse Rate 96 H 91 H Respiratory Rate 23 20 Blood Pressure 154/103 H 147/90 H Pulse Oximetry 96 97 97 08/05/18 05:00 08/05/18 06:00 08/05/18 07:46 Temperature Pulse Rate 90 93 H 96 H Respiratory Rate 17 18 18 Blood Pressure 144/94 H 142/92 H Pulse Oximetry 95 96 96 08/05/18 08:00 08/05/18 09:23 08/05/18 10:00 Temperature 97.8 F Pulse Rate 96 H 97 H 97 H Respiratory Rate 18 20 Blood Pressure 141/94 H Pulse Oximetry 98 08/05/18 11:18 12/10/18 12:00 08/05/18 14:00 Temperature 97.8 F Pulse Rate 91 H 111 H Respiratory Rate 18 22 Blood Pressure 112/95 H Pulse Oximetry 96 08/05/18 15:21 08/05/18 16:00 Temperature Pulse Rate 118 H 111 H Respiratory Rate 18 Blood Pressure Pulse Oximetry Intake & Output 08/04/18 08/05/18 08/05/18 18:59 06:59 18:59 Intake Total 1480 / 1480 830 / 830 Output Total 1200 / 1200 Balance 1480 / 1480 -370 / -370 Weight 90.5 kg Intake: IV 1000 / 1000 350 / 350 NS Inj 1,000 ML @ 42 mls/hr IV. 1000 / 1000 CONT .[id number] [facility] Rx#:[id number] Azithromycin Inj 500 MG In NS 250 / 250 Inj 250 ML @ 250 mls/hr IV.SIG Q24H [facility] Rx#:[id number] Rocephin Inj 1,000 MG In NS Inj 100 / 100 100 ML @ 200 mls/hr IV.SIG Q24H [facility] Rx#:[id number] Oral 480 / 480 480 / 480 Output: Urine 1200 / 1200 Other: # Voids 2 2 Date of Last Bowel Movement 08/04/18 08/04/18 08/05/18 # Bowel Movements 1 GENERAL: WBWN NAD SKIN: Warm and dry. HEAD: Normocephalic. EYES: No scleral icterus. No injection or drainage. NECK: Supple, trachea midline. No JVD or lymphadenopathy. CARDIOVASCULAR: Regular rate and rhythm without murmurs, gallops, or rubs. RESPIRATORY: Breath sounds equal bilaterally. No accessory muscle use. Exp rhonchi GASTROINTESTINAL: Abdomen soft, non-tender, nondistended. MUSCULOSKELETAL: No cyanosis, or edema. BACK: Nontender without obvious deformity. No CVA tenderness. Assessment and Plan - Plan IMPRESSION: 1. Bronchial asthma exacerbation. 2. Left upper lobe infiltrate. 3. Human immunodeficiency virus disease. 4. Hypertension. 5. Obesity PLAN: Aerosol nebs IV Steroids Solumedrol 60 mg q 6 hrs Heparin 5000 IU q 12 hrs Cont Abx Rocephin and Zithro Symbicort 2 puffs bid Stable to tr to floor Stable on RA
[2018-08-05] MEDS: Azithromycin Inj 500 MG in Sodium Chlor 0.9% Inj 250 ML IV.SIG SCH (17:42)
[2018-08-05] MEDS ORDERED: Ketorolac Inj 30 MG/ML (IVP) Vial IV.PUSH ONE (21:25)
[2018-08-05] MEDS: Amitriptyline 100 MG Tablet PO SCH (21:55)
[2018-08-06] MEDS: Chlorhexidine Gluconate 2% 1 Pack (2 Cloths) TOPICAL SCH (03:52)
[2018-08-06] MEDS: Sod Chloride 0.9% Inj 1,000 ML IV.CONT SCH ×2 (06:03→18:29)
[2018-08-06] MEDS: Heparin - SQ 10,000 UNITS/ML Vial SQ SCH ×3 (06:03→22:50)
[2018-08-06] MEDS: MethylPREDNISolone Sod Succinate Inj 40 MG/ML Vial IV.PUSH SCH ×4 (06:03→23:00)
[2018-08-06] MEDS: Gabapentin 300 MG Capsule PO SCH ×3 (08:13→18:20)
[2018-08-06] MEDS: Ferrous Sulfate 325 MG Tablet PO SCH (08:13)
[2018-08-06] MEDS: Pantoprazole Sodium 20 MG DR Tablet PO SCH (08:13)
[2018-08-06] MEDS: Folic Acid 1 MG Tablet PO SCH (08:13)
[2018-08-06] MEDS: Budesonide-Formoterol 160/4.5 MCG 6 GM Inhaler INH SCH ×2 (08:16→22:55)
--- NOTE | 2018-08-06 11:15 | P.PNPL ---
Subjective Interval history: 38 YOAA female with HIV,Br asthma with SOB,Wheezing has back pain No Fever Weaned to RA Still has wheezing Echo EF 55-60% Slept better Physical Exam Vital signs: Vital Signs 08/05/18 11:18 08/05/18 12:00 08/05/18 13:00 Temperature 97.8 F Pulse Rate 91 H 110 H Respiratory Rate 18 22 19 Blood Pressure 141/91 H 141/88 H Pulse Oximetry 95 95 08/05/18 14:00 08/05/18 15:00 08/05/18 15:21 Temperature Pulse Rate 113 H 113 H 118 H Respiratory Rate 22 24 18 Blood Pressure 132/76 124/74 Pulse Oximetry 95 94 L 08/05/18 16:00 08/05/18 17:00 08/05/18 18:00 Temperature 97.8 F Pulse Rate 111 H 105 H 103 H Respiratory Rate 22 21 24 Blood Pressure 122/74 118/70 131/78 Pulse Oximetry 95 95 95 08/05/18 19:00 08/05/18 20:00 08/05/18 20:23 Temperature 97.5 F L Pulse Rate 104 H 102 H 94 H Respiratory Rate 26 H 26 H 18 Blood Pressure 125/77 135/85 Pulse Oximetry 95 94 L 08/05/18 21:00 08/05/18 21:20 08/05/18 22:00 Temperature Pulse Rate 89 87 Respiratory Rate 26 H 29 H Blood Pressure 131/85 142/100 H Pulse Oximetry 95 94 L 96 08/05/18 22:30 08/05/18 23:00 08/05/18 23:30 Temperature Pulse Rate 84 88 90 Respiratory Rate 24 21 24 Blood Pressure 138/92 H 129/78 125/78 Pulse Oximetry 96 95 95 08/06/18 00:00 08/06/18 00:30 08/06/18 01:00 Temperature Pulse Rate 91 H 93 H 91 H Respiratory Rate 22 19 18 Blood Pressure 131/84 130/80 132/82 Pulse Oximetry 96 95 95 08/06/18 02:07 08/06/18 03:43 08/06/18 04:00 Temperature 97.5 F L 97.2 F L Pulse Rate 87 91 H 86 Respiratory Rate 20 20 20 Blood Pressure 133/79 138/88 Pulse Oximetry 95 94 L 08/06/18 08:00 12/11/18 08:16 Temperature 97.3 F L Pulse Rate 91 H 83 Respiratory Rate 20 18 Blood Pressure 137/92 H Pulse Oximetry 96 Intake & Output 08/05/18 08/06/18 08/06/18 18:59 06:59 18:59 Intake Total 850 / 850 1100 / 1100 Balance 850 / 850 1100 / 1100 Weight 93.2 kg Intake: IV 250 / 250 1100 / 1100 NS Inj 1,000 ML @ 42 mls/hr IV. 1000 / 1000 CONT .[id number] [facility] Rx#:[id number] Azithromycin Inj 500 MG In NS 250 / 250 Inj 250 ML @ 250 mls/hr IV.SIG Q24H [facility] Rx#:[id number] Rocephin Inj 1,000 MG In NS Inj 100 / 100 100 ML @ 200 mls/hr IV.SIG Q24H [facility] Rx#:[id number] Oral 600 / 600 Other: # Voids 2 1 Date of Last Bowel Movement 08/05/18 08/05/18 08/05/18 # Bowel Movements 1 GENERAL: WBWN Looks comfortable. SKIN: Warm and dry. HEAD: Normocephalic. EYES: No scleral icterus. No injection or drainage. NECK: Supple, trachea midline. No JVD or lymphadenopathy. CARDIOVASCULAR: Regular rate and rhythm without murmurs, gallops, or rubs. RESPIRATORY: Breath sounds equal bilaterally. No accessory muscle use. GASTROINTESTINAL: Abdomen soft, non-tender, nondistended. MUSCULOSKELETAL: No cyanosis, or edema. BACK: Nontender without obvious deformity. No CVA tenderness. Assessment and Plan - Plan IMPRESSION: 1. Bronchial asthma exacerbation. 2. Left upper lobe infiltrate. 3. Human immunodeficiency virus disease. 4. Hypertension. 5. Obesity PLAN: Aerosol nebs IV Steroids Solumedrol 60 mg q 6 hrs Heparin 5000 IU q 12 hrs Cont Abx Rocephin and Zithro Symbicort 2 puffs bid Stable to tr to floor Stable on RA Check PFT
--- NOTE | 2018-08-06 11:28 | P.PNIM ---
Subjective Interval history: Follow-up shortness of breath, URI, asthma exacerbation, tachycardia, leukocytosis, lactic acidosis, and history of HIV/AIDS. Patient seen and examined laying in bed, complaining of headache, like a migraine headache. Patient stated she was started on amitriptyline at home for migraine headache. Patient stated she had some dizziness and nausea associated with a headache. Denies any vomiting. Patient stated she has to take 4 Tylenol last night but no relief of headache. Patient stated the headache usually exacerbated with illness. Patient denies any chest pain or shortness of breath, denies any abdominal pain, diarrhea or constipation. Patient denies any fever or chills. Physical Exam Vital signs: Vital Signs 08/05/18 12:00 08/05/18 13:00 08/05/18 14:00 Temperature 97.8 F Pulse Rate 91 H 110 H 113 H Respiratory Rate 22 19 22 Blood Pressure 141/91 H 141/88 H 132/76 Pulse Oximetry 95 95 95 08/05/18 15:00 08/05/18 15:21 08/05/18 16:00 Temperature 97.8 F Pulse Rate 113 H 118 H 111 H Respiratory Rate 24 18 22 Blood Pressure 124/74 122/74 Pulse Oximetry 94 L 95 08/05/18 17:00 08/05/18 18:00 08/05/18 19:00 Temperature Pulse Rate 105 H 103 H 104 H Respiratory Rate 21 24 26 H Blood Pressure 118/70 131/78 125/77 Pulse Oximetry 95 95 95 08/05/18 20:00 08/05/18 20:23 08/05/18 21:00 Temperature 97.5 F L Pulse Rate 102 H 94 H Respiratory Rate 26 H 18 Blood Pressure 135/85 Pulse Oximetry 94 L 95 08/05/18 21:20 08/05/18 22:00 08/05/18 22:30 Temperature Pulse Rate 89 87 84 Respiratory Rate 26 H 29 H 24 Blood Pressure 131/85 142/100 H 138/92 H Pulse Oximetry 94 L 96 96 08/05/18 23:00 08/05/18 23:30 08/06/18 00:00 Temperature Pulse Rate 88 90 91 H Respiratory Rate 21 24 22 Blood Pressure 129/78 125/78 131/84 Pulse Oximetry 95 95 96 08/06/18 00:30 08/06/18 01:00 08/06/18 02:07 Temperature 97.5 F L Pulse Rate 93 H 91 H 87 Respiratory Rate 19 18 20 Blood Pressure 130/80 132/82 133/79 Pulse Oximetry 95 95 95 08/06/18 03:43 08/06/18 04:00 08/06/18 08:00 Temperature 97.2 F L 97.3 F L Pulse Rate 91 H 86 91 H Respiratory Rate 20 20 20 Blood Pressure 138/88 137/92 H Pulse Oximetry 94 L 96 08/06/18 08:16 Temperature Pulse Rate 83 Respiratory Rate 18 Blood Pressure Pulse Oximetry Intake & Output 08/05/18 08/06/18 08/06/18 18:59 06:59 18:59 Intake Total 850 / 850 1100 / 1100 Balance 850 / 850 1100 / 1100 Weight 93.2 kg Intake: IV 250 / 250 1100 / 1100 NS Inj 1,000 ML @ 42 mls/hr IV. 1000 / 1000 CONT .[id number] [facility] Rx#:[id number] Azithromycin Inj 500 MG In NS 250 / 250 Inj 250 ML @ 250 mls/hr IV.SIG Q24H [facility] Rx#:[id number] Rocephin Inj 1,000 MG In NS Inj 100 / 100 100 ML @ 200 mls/hr IV.SIG Q24H [facility] Rx#:[id number] Oral 600 / 600 Other: # Voids 2 1 Date of Last Bowel Movement 08/05/18 08/05/18 08/05/18 # Bowel Movements 1 Narrative: GENERAL: Well-developed, well-nourished female in no apparent distress SKIN: Warm and dry. HEAD: Atraumatic. Normocephalic. EYES: Pupils equal and round. No scleral icterus. No injection or drainage. ENT: No nasal bleeding or discharge. Mucous membranes pink and moist. NECK: Trachea midline. No JVD. CARDIOVASCULAR: Regular rate and rhythm. RESPIRATORY: No accessory muscle use. Expiratory wheezes auscultation. Breath sounds equal bilaterally. GASTROINTESTINAL: Abdomen obese, soft, non-tender, nondistended. Hepatic and splenic margins not palpable. MUSCULOSKELETAL: Extremities without clubbing, cyanosis, or edema. No obvious deformities. NEUROLOGICAL: Awake and alert. No obvious cranial nerve deficits. Motor grossly within normal limits. Five out of 5 muscle strength in the arms and legs. Normal speech. PSYCHIATRIC: Appropriate mood and affect; insight and judgment normal. Results - Labs CBC & Chem 7: 08/05/18 10:45 08/05/18 07:05 Laboratory Results - last 24 hr 08/05/18 10:45 WBC Differential Manual diff final Seg Neuts % (Manual) 91 H Band Neuts % (Manual) 2 Lymphocytes % (Manual) 5 L Myelocytes % (Man) 2 H Abs Neuts (Manual) 15.6 H Platelet Estimate Normal Platelet Morphology Normal RBC Morphology Normal Microbiology 08/03/18 16:26 Blood - Peripheral Aerobic Blood Culture - Preliminary No growth in 3 days 08/03/18 16:26 Blood - Peripheral Anaerobic Blood Culture - Preliminary No growth in 3 days 08/03/18 16:20 Blood - Peripheral Aerobic Blood Culture - Preliminary No growth in 3 days 08/03/18 16:20 Blood - Peripheral Anaerobic Blood Culture - Preliminary No growth in 3 days Assessment and Plan - Assessment (1) Migraine headache Code(s): G43.909 - Migraine, unspecified, not intractable, without status migrainosus Status: Acute (2) Acute asthma exacerbation Code(s): J45.901 - Unspecified asthma with (acute) exacerbation Status: Acute (3) Adjustment disorder with mixed anxiety and depressed mood Code(s): F43.23 - Adjustment disorder with mixed anxiety and depressed mood Status: Acute - Plan This is a 38 years old female being admitted for shortness of breath URI Shortness of breath History of asthma URI-induced Asthma exacerbation -Blood culture: No growth in 3 days -Nasal wash: Negative for flu -continue duo nebs treatment with dose now, and continue as needed albuterol, Atrovent -Increase Solu-Medrol to 60 every 6 hours for continued wheezes - pulmonology following, appreciate recommendation -CXR unremarkable, CTA neg for PE but radiology read indicates possible pNA, -Continue antibiotic treatment, Zithromax and Rocephin Lactic acidosis -unclear etiology at this point, slowly trending down -continue IVF -suspect this is secondary to antiretrovirals as opposed to any true sepsis -Monitor signs and symptoms leukocytosis -Most likely secondary to steroid use -no fever or chills -monitor CBC, follow trends Tachycardia Likely secondary to anxiety/or possibly secondary to severe asthma exacerbation - continue home hydroxyzine, psychiatry consultation pending -CTA neg for PE, echo wnl -Discussed with pharmacy, only HIV medication with significant adverse effect that may cause tachycardia as patient's ritonavir and only 2% prevalence noted in postmarketing studies -HR improving HIV/AIDS Continue home medications - no opportunistic infections evident at this time Migraine headache -Acute on chronic -Continue amitriptyline -Give a dose of Imitrex now -As needed Tylenol -Monitor response DVT prophylaxis: Bilateral SCDs Code Status: Full code Discussed Condition With: Patient and nurse (2) Acute asthma exacerbation Qualifiers: Asthma severity: severe Asthma persistence: persistent Qualified Code(s): J45.51 - Severe persistent asthma with (acute) exacerbation
[2018-08-06] MEDS: Acetaminophen 325 MG Tablet PO PRN (12:08)
[2018-08-06] MEDS: Azithromycin Inj 500 MG in Sodium Chlor 0.9% Inj 250 ML IV.SIG SCH (18:20)
[2018-08-06] MEDS: Amitriptyline 100 MG Tablet PO SCH (22:54)
[2018-08-07] MEDS: Zolpidem Tartrate 5 MG Tablet PO PRN ×2 (00:58→23:04)
[2018-08-07] MEDS: Chlorhexidine Gluconate 2% 1 Pack (2 Cloths) TOPICAL SCH (05:02)
[2018-08-07] MEDS: MethylPREDNISolone Sod Succinate Inj 40 MG/ML Vial IV.PUSH SCH ×3 (05:53→18:05)
[2018-08-07] MEDS: Sod Chloride 0.9% Inj 1,000 ML IV.CONT SCH ×2 (05:56→15:11)
[2018-08-07] MEDS: Heparin - SQ 10,000 UNITS/ML Vial SQ SCH ×3 (05:56→23:05)
[2018-08-07 07:13] LABS: Hematocrit 35.7 % (35.0-46.0); Hemoglobin 12.1 gm/dL (11.6-15.3); Mean Corpuscular HGB Conc 33.9 % (32.0-36.0); Mean Corpuscular Hemoglobin 31.8 pg (27.0-34.0); Mean Corpuscular Volume 93.9 fL (80.0-100.0); Mean Platelet Volume 8.2 fL (7.0-11.0); Platelet Count 245 th/mm3 (150-450); Red Cell Distribution Width 14.4 % (11.6-17.2); White Blood Count 15.6 th/mm3 (4.0-11.0)
[2018-08-07 08:21] LABS: Lymphocytes 3 % (9-44); Metamyelocytes 4 % (0-1); Monocytes 4 % (0-8); Myelocytes 2 % (0-0); Platelet Estimate Normal (Normal); Platelet Morphology Normal (Normal)
[2018-08-07] MEDS: Folic Acid 1 MG Tablet PO SCH (08:52)
[2018-08-07] MEDS: Pantoprazole Sodium 20 MG DR Tablet PO SCH (08:52)
[2018-08-07] MEDS: Ferrous Sulfate 325 MG Tablet PO SCH (08:52)
[2018-08-07] MEDS: Gabapentin 300 MG Capsule PO SCH ×3 (08:52→18:06)
[2018-08-07] MEDS: Budesonide-Formoterol 160/4.5 MCG 6 GM Inhaler INH SCH ×2 (09:05→20:42)
--- NOTE | 2018-08-07 10:22 | P.PNIM ---
Subjective Interval history: Follow-up shortness of breath, URI, asthma exacerbation, tachycardia, leukocytosis, lactic acidosis, and history of HIV/AIDS. Patient seen and examined sitting in bed, stated coughing a lot of sputum and wheezing. Patient stated that shortness of breath from walking from the bathroom to the chair. Patient encouraged to be out of bed. Physical Exam Vital signs: Vital Signs 08/06/18 12:00 08/06/18 15:41 08/06/18 15:50 Temperature 97.9 F 98.3 F Pulse Rate 115 H 96 H 94 H Respiratory Rate 20 20 20 Blood Pressure 134/79 140/97 H Pulse Oximetry 93 L 95 08/06/18 20:00 08/06/18 21:56 08/07/18 00:09 Temperature 97.1 F L 97.9 F Pulse Rate 96 H 92 H 86 Respiratory Rate 20 25 H 15 Blood Pressure 151/98 H 136/94 H Pulse Oximetry 95 94 L 08/07/18 00:34 08/07/18 04:28 08/07/18 04:33 Temperature 97.5 F L Pulse Rate 83 97 H Respiratory Rate 17 24 14 Blood Pressure 148/93 H Pulse Oximetry 94 L 08/07/18 07:50 08/07/18 09:12 Temperature 97.8 F Pulse Rate 95 H 82 Respiratory Rate 20 18 Blood Pressure 142/88 H Pulse Oximetry 92 L Intake & Output 08/06/18 08/07/18 08/07/18 18:59 06:59 18:59 Intake Total 1350 / 1350 Balance 1350 / 1350 Weight 93.2 kg Intake: IV 1350 / 1350 NS Inj 1,000 ML @ 42 mls/hr IV. 1000 / 1000 CONT .[id number] [facility] Rx#:[id number] Azithromycin Inj 500 MG In NS 250 / 250 Inj 250 ML @ 250 mls/hr IV.SIG Q24H [facility] Rx#:[id number] Rocephin Inj 1,000 MG In NS Inj 100 / 100 100 ML @ 200 mls/hr IV.SIG Q24H [facility] Rx#:[id number] Other: # Voids 2 Date of Last Bowel Movement 08/05/18 08/05/18 Narrative: GENERAL: Well-developed, well-nourished female in no apparent distress SKIN: Warm and dry. HEAD: Atraumatic. Normocephalic. EYES: Pupils equal and round. No scleral icterus. No injection or drainage. ENT: No nasal bleeding or discharge. Mucous membranes pink and moist. NECK: Trachea midline. No JVD. CARDIOVASCULAR: Regular rate and rhythm. RESPIRATORY: No accessory muscle use. Expiratory wheezes auscultation. Breath sounds equal bilaterally. Coarse cough GASTROINTESTINAL: Abdomen obese, soft, non-tender, nondistended. Hepatic and splenic margins not palpable. MUSCULOSKELETAL: Extremities without clubbing, cyanosis, or edema. No obvious deformities. NEUROLOGICAL: Awake and alert. No obvious cranial nerve deficits. Motor grossly within normal limits. Five out of 5 muscle strength in the arms and legs. Normal speech. PSYCHIATRIC: Appropriate mood and affect; insight and judgment normal. Results - Labs CBC & Chem 7: 08/07/18 06:45 08/05/18 07:05 Laboratory Results - last 24 hr 08/07/18 06:45 WBC 15.6 H RBC 3.80 L Hgb 12.1 Hct 35.7 MCV 93.9 MCH 31.8 MCHC 33.9 RDW 14.4 Plt Count 245 MPV 8.2 Prelim Diff (Auto) Manual diff required WBC Differential Manual diff final Seg Neuts % (Manual) 85 H Band Neuts % (Manual) 2 Lymphocytes % (Manual) 3 L Monocytes % (Manual) 4 Metamyelocytes % (Man) 4 H Myelocytes % (Man) 2 H Abs Neuts (Manual) 14.5 H Differential Comment . Platelet Estimate Normal Platelet Morphology Normal Microbiology 08/03/18 16:26 Blood - Peripheral Aerobic Blood Culture - Preliminary No growth in 3 days 08/03/18 16:26 Blood - Peripheral Anaerobic Blood Culture - Preliminary No growth in 3 days 08/03/18 16:20 Blood - Peripheral Aerobic Blood Culture - Preliminary No growth in 3 days 08/03/18 16:20 Blood - Peripheral Anaerobic Blood Culture - Preliminary No growth in 3 days Assessment and Plan - Assessment (1) Migraine headache Code(s): G43.909 - Migraine, unspecified, not intractable, without status migrainosus Status: Acute (2) Acute asthma exacerbation Code(s): J45.901 - Unspecified asthma with (acute) exacerbation Status: Acute (3) Adjustment disorder with mixed anxiety and depressed mood Code(s): F43.23 - Adjustment disorder with mixed anxiety and depressed mood Status: Acute - Plan This is a 38 years old female being admitted for shortness of breath Bronchial Asthma Exacerbation Shortness of breath History of asthma left Upper Lobe infiltrate -Blood culture: No growth in 3 days -Nasal wash: Negative for flu -CXR unremarkable, CTA neg for PE but radiology read indicates possible pNA, -increase duo nebs treatment with dose now, and continue as needed albuterol, Atrovent -Increase Solu-Medrol to 60 every 6 hours for continued wheezes -continue Symbicort - pulmonology following, appreciate recommendation -Continue antibiotic treatment, Zithromax and Rocephin -awaiting PFT results -monitor Respiratory status Lactic acidosis -unclear etiology at this point, slowly trending down -continue IVF -suspect this is secondary to antiretrovirals as opposed to any true sepsis -Monitor signs and symptoms Leukocytosis -Most likely secondary to steroid use -no fever or chills -monitor CBC, follow trends Tachycardia Likely secondary to anxiety/ severe asthma exacerbation - continue home hydroxyzine, psychiatry consultation pending -CTA neg for PE, -2D-echo EF 55-60% -Discussed with pharmacy, only HIV medication with significant adverse effect that may cause tachycardia as patient's ritonavir and only 2% prevalence noted in postmarketing studies -HR improving Anxiety/Depression adjustment Disorder -Psychiatry Consulted : appreciate recommendation -continue Paxil, increased Hydroxizine -increase Elavil to help with migraine prevention per Psych recommendation -monitor mental status HIV/AIDS Continue home medications, Duranavir and Etravirine - no opportunistic infections evident at this time -Follow up wit ID as an out patient Migraine headache -Acute on chronic -Continue amitriptyline -Give a dose of Imitrex now -As needed Tylenol -Monitor response DVT prophylaxis: Bilateral SCDs Code Status: full code Discussed Condition With: patient and Nurse Discharge Planning: Discharge planning when cleared with pulmonology (2) Acute asthma exacerbation Qualifiers: Asthma severity: severe Asthma persistence: persistent Qualified Code(s): J45.51 - Severe persistent asthma with (acute) exacerbation
[2018-08-07] MEDS: Acetaminophen 325 MG Tablet PO PRN ×2 (18:06→23:06)
[2018-08-07] MEDS: Azithromycin Inj 500 MG in Sodium Chlor 0.9% Inj 250 ML IV.SIG SCH (18:06)
[2018-08-07] MEDS: guaiFENesin/Dextromethorphan 200 MG/20 MG 10 ML UDC PO PRN (18:06)
--- NOTE | 2018-08-07 19:25 | P.PNPL ---
Subjective Interval history: 38 YOAA female with HIV,Br asthma with SOB,Wheezing has back pain No Fever Weaned to RA Echo EF 55-60% Slept better Breathing better Anxious to go home Physical Exam Vital signs: Vital Signs 08/06/18 20:00 08/06/18 21:56 08/07/18 00:09 Temperature 97.1 F L 97.9 F Pulse Rate 96 H 92 H 86 Respiratory Rate 20 25 H 15 Blood Pressure 151/98 H 136/94 H Pulse Oximetry 95 94 L 08/07/18 00:34 08/07/18 04:28 08/07/18 04:33 Temperature 97.5 F L Pulse Rate 83 97 H Respiratory Rate 17 24 14 Blood Pressure 148/93 H Pulse Oximetry 94 L 08/07/18 07:50 08/07/18 09:12 08/07/18 12:00 Temperature 97.8 F 98.1 F Pulse Rate 95 H 82 104 H Respiratory Rate 20 18 22 Blood Pressure 142/88 H 130/93 H Pulse Oximetry 92 L 94 L 08/07/18 12:35 08/07/18 15:00 08/07/18 16:00 Temperature 97.2 F L Pulse Rate 88 93 H 90 Respiratory Rate 18 14 20 Blood Pressure 150/78 H Pulse Oximetry 94 L Intake & Output 08/07/18 08/07/18 08/08/18 06:59 18:59 06:59 Intake Total 1350 / 1350 Balance 1350 / 1350 Weight 93.2 kg Intake: IV 1350 / 1350 NS Inj 1,000 ML @ 42 mls/hr IV. 1000 / 1000 CONT .[id number] [facility] Rx#:[id number] Azithromycin Inj 500 MG In NS 250 / 250 Inj 250 ML @ 250 mls/hr IV.SIG Q24H [facility] Rx#:[id number] Rocephin Inj 1,000 MG In NS Inj 100 / 100 100 ML @ 200 mls/hr IV.SIG Q24H [facility] Rx#:[id number] Other: # Voids 2 Date of Last Bowel Movement 08/05/18 08/05/18 GENERAL: WBWn NAD SKIN: Warm and dry. HEAD: Normocephalic. EYES: No scleral icterus. No injection or drainage. NECK: Supple, trachea midline. No JVD or lymphadenopathy. CARDIOVASCULAR: Regular rate and rhythm without murmurs, gallops, or rubs. RESPIRATORY: Breath sounds equal bilaterally. No accessory muscle use. GASTROINTESTINAL: Abdomen soft, non-tender, nondistended. MUSCULOSKELETAL: No cyanosis, or edema. BACK: Nontender without obvious deformity. No CVA tenderness. Assessment and Plan - Plan IMPRESSION: 1. Bronchial asthma exacerbation. 2. Left upper lobe infiltrate. 3. Human immunodeficiency virus disease. 4. Hypertension. 5. Obesity PLAN: Aerosol nebs Heparin 5000 IU q 12 hrs Cont Abx Rocephin Symbicort 2 puffs bid Stable to tr to floor Stable on RA Check PFT DC Solumedrol DC Zithro Prednisone 20 mg bid
[2018-08-07] MEDS: predniSONE 10 MG Tablet PO SCH (20:38)
[2018-08-07] MEDS: Amitriptyline 100 MG Tablet PO SCH (23:04)
[2018-08-08] MEDS: Chlorhexidine Gluconate 2% 1 Pack (2 Cloths) TOPICAL SCH (05:53)
[2018-08-08] MEDS: Sod Chloride 0.9% Inj 1,000 ML IV.CONT SCH ×2 (06:19→14:23)
[2018-08-08] MEDS: Heparin - SQ 10,000 UNITS/ML Vial SQ SCH ×3 (06:20→22:38)
[2018-08-08] MEDS: Ferrous Sulfate 325 MG Tablet PO SCH (10:17)
[2018-08-08] MEDS: Pantoprazole Sodium 20 MG DR Tablet PO SCH (10:17)
[2018-08-08] MEDS: Gabapentin 300 MG Capsule PO SCH ×3 (10:17→18:05)
[2018-08-08] MEDS: predniSONE 10 MG Tablet PO SCH ×2 (10:18→22:37)
[2018-08-08] MEDS: Folic Acid 1 MG Tablet PO SCH (10:18)
[2018-08-08] MEDS: Budesonide-Formoterol 160/4.5 MCG 6 GM Inhaler INH SCH ×2 (10:19→22:39)
--- NOTE | 2018-08-08 11:34 | P.PNIM ---
Subjective Interval history: Follow-up bronchial asthma/asthma exacerbation, shortness of breath, wheezes, HIV, and migraine headache. Patient seen and examined laying in bed, stated feeling a little better. Stated went to the bathroom and go to bed and exhausted from moving around with increasing short of breath with activity. Patient currently in room air with oxygen saturation greater than 92% . Discussed the patient to be out of bed and increase activity, patient verbalized understanding. Patient encouraged to do incentive spirometer. Patient denies any fever or chills. Denies any headache or dizziness, denies any chest pain, abdominal pain, nausea, vomiting, diarrhea or constipation. Physical Exam Vital signs: Last Vital Signs Temp 98.0 F 08/08/18 08:00 Pulse 87 08/08/18 08:00 Resp 24 08/08/18 08:00 BP 154/98 H 08/08/18 08:00 Pulse Ox 94 L 08/08/18 08:00 Intake & Output 08/06/18 08/07/18 08/08/18 08/09/18 06:59 06:59 06:59 06:59 Intake Total 1949 1350 / 1350 1250 / 1250 Balance 1949 1350 / 1350 1250 / 1250 Weight 93.2 kg 93.2 kg 97.7 kg Narrative: GENERAL: Well-developed, well-nourished young looking female in no apparent distress SKIN: Warm and dry. HEAD: Atraumatic. Normocephalic. EYES: Pupils equal and round. No scleral icterus. No injection or drainage. ENT: No nasal bleeding or discharge. Mucous membranes pink and moist. NECK: Trachea midline. No JVD. CARDIOVASCULAR: Regular rate and rhythm. RESPIRATORY: No accessory muscle use. scattered Expiratory wheezes auscultation. Breath sounds equal bilaterally. Coarse cough GASTROINTESTINAL: Abdomen obese, soft, non-tender, nondistended. Hepatic and splenic margins not palpable. MUSCULOSKELETAL: Extremities without clubbing, cyanosis, or edema. No obvious deformities. NEUROLOGICAL: Awake and alert. No obvious cranial nerve deficits. Motor grossly within normal limits. Five out of 5 muscle strength in the arms and legs. Normal speech. PSYCHIATRIC: Appropriate mood and affect; insight and judgment normal. Results Labs CBC & Chem 7: 08/07/18 06:45 08/05/18 07:05 Labs: Microbiology 08/03/18 16:26 Blood - Peripheral Aerobic Blood Culture - Final No growth in 5 days 08/03/18 16:26 Blood - Peripheral Anaerobic Blood Culture - Final No growth in 5 days 08/03/18 16:20 Blood - Peripheral Aerobic Blood Culture - Final No growth in 5 days 08/03/18 16:20 Blood - Peripheral Anaerobic Blood Culture - Final No growth in 5 days Assessment and Plan (1) Migraine headache: Code(s): G43.909 - Migraine, unspecified, not intractable, without status migrainosus Status: Acute (2) Acute asthma exacerbation: Code(s): J45.901 - Unspecified asthma with (acute) exacerbation Status: Acute (3) Adjustment disorder with mixed anxiety and depressed mood: Code(s): F43.23 - Adjustment disorder with mixed anxiety and depressed mood Status: Acute Plan This is a 38 years old female being admitted for shortness of breath Bronchial Asthma Exacerbation Shortness of breath History of asthma left Upper Lobe infiltrate -Blood culture: No growth in 3 days -Nasal wash: Negative for flu -CXR unremarkable, CTA neg for PE but radiology read indicates possible pNA, - continue duo nebs treatment with dose now, and continue as needed albuterol, Atrovent and Symbicort -Changed Solu-Medrol to prednisone p.o. per pulmonology recommendation - pulmonology following, appreciate recommendations -Continue ceftriaxone IV antibiotic, discontinued Zithromax -awaiting PFT results -monitor Respiratory status Hypertension Blood pressure elevated, no history of hypertension -Start on clonidine as needed -Start on on blood pressure medication, low-dose lisinopril -Monitor blood pressure Lactic acidosis -unclear etiology at this point, slowly trending down -continue IVF -suspect this is secondary to antiretrovirals as opposed to any true sepsis -Monitor signs and symptoms Leukocytosis -Most likely secondary to steroid use -WBC trending down, 15.6 today -no fever or chills -monitor CBC, follow trends Tachycardia Likely secondary to anxiety/ severe asthma exacerbation - continue home hydroxyzine, psychiatry consultation pending -CTA neg for PE, -2D-echo EF 55-60% -Discussed with pharmacy, only HIV medication with significant adverse effect that may cause tachycardia as patient's ritonavir and only 2% prevalence noted in postmarketing studies -HR improving Anxiety/Depression Adjustment Disorder -Psychiatry Consulted : appreciate recommendation -continue Paxil, increased Hydroxizine -increase Elavil to help with migraine prevention per Psych recommendation -monitor mental status HIV/AIDS Continue home medications, Duranavir and Etravirine - no opportunistic infections evident at this time -Follow up wit ID- dr Thi Nassar as an out patient Migraine headache -Acute on chronic -Continue amitriptyline -Give a dose of Imitrex now -As needed Tylenol -improving Monitor response DVT prophylaxis: Bilateral SCDs Discharge Planning: Discharge planning when cleared with pulmonology Progress Note: Quality VTE Deep Vein Thrombosis/Pulmonary Embolism Present on Admission: No _ (1) Migraine headache Qualifiers: Intractability: Migraine type: Status migrainosus presence: (2) Acute asthma exacerbation Qualifiers: Asthma persistence: persistent Asthma severity: severe Qualified Code(s): J45.51 - Severe persistent asthma with (acute) exacerbation
[2018-08-08] MEDS ORDERED: Lisinopril 5 MG Tablet PO SCH (12:15)
[2018-08-08] MEDS: Acetaminophen 325 MG Tablet PO PRN ×2 (14:24→22:39)
--- NOTE | 2018-08-08 17:28 | P.PNPL ---
Subjective Interval history: 38 YOAA female with HIV,Br asthma with SOB,Wheezing has back pain No Fever Weaned to RA Echo EF 55-60% Slept better Breathing better C/o pain in the throat Physical Exam Vital signs: Vital Signs 08/07/18 20:00 08/07/18 20:59 08/07/18 23:52 Temperature 97.8 F Pulse Rate 96 H 88 93 H Respiratory Rate 19 15 18 Blood Pressure 152/99 H Pulse Oximetry 94 L 08/08/18 00:00 08/08/18 03:52 08/08/18 04:00 Temperature 98.1 F 97.9 F Pulse Rate 99 H 97 H 94 H Respiratory Rate 18 16 20 Blood Pressure 149/81 H 143/76 H Pulse Oximetry 92 L 91 L 08/08/18 07:57 08/08/18 08:00 08/08/18 12:00 Temperature 98.0 F 98.1 F Pulse Rate 82 87 92 H Respiratory Rate 22 24 22 Blood Pressure 154/98 H 135/83 Pulse Oximetry 94 L 94 L 08/08/18 12:42 08/08/18 16:00 08/08/18 16:21 Temperature 97.4 F L Pulse Rate 108 H 98 H 94 H Respiratory Rate 18 20 18 Blood Pressure 150/94 H Pulse Oximetry 93 L Intake & Output 08/07/18 08/08/18 08/08/18 18:59 06:59 18:59 Intake Total 1250 / 1250 1000 / 1000 Balance 1250 / 1250 1000 / 1000 Weight 97.7 kg Intake: IV 1250 / 1250 1000 / 1000 NS Inj 1,000 ML @ 42 mls/hr IV. 1000 / 1000 1000 / 1000 CONT .[id number] [facility] Rx#:[id number] Azithromycin Inj 500 MG In NS 250 / 250 Inj 250 ML @ 250 mls/hr IV.SIG Q24H [facility] Rx#:[id number] Other: # Voids 2 Date of Last Bowel Movement 08/07/18 08/05/18 GENERAL: WBWN NAD SKIN: Warm and dry. HEAD: Normocephalic. Oral thrush EYES: No scleral icterus. No injection or drainage. NECK: Supple, trachea midline. No JVD or lymphadenopathy. CARDIOVASCULAR: Regular rate and rhythm without murmurs, gallops, or rubs. RESPIRATORY: Breath sounds equal bilaterally. No accessory muscle use. GASTROINTESTINAL: Abdomen soft, non-tender, nondistended. MUSCULOSKELETAL: No cyanosis, or edema. BACK: Nontender without obvious deformity. No CVA tenderness. Assessment and Plan - Plan IMPRESSION: 1. Bronchial asthma exacerbation. 2. Left upper lobe infiltrate. 3. Human immunodeficiency virus disease. 4. Hypertension. 5. Obesity. 6. Oral thrush PLAN: Aerosol nebs Heparin 5000 IU q 12 hrs Cont Abx Rocephin Symbicort 2 puffs bid Stable to tr to floor Stable on RA Check PFT Prednisone 20 mg bid Nystatin S&S
[2018-08-08] MEDS: Nystatin Liq 500,000 UNIT/5 ML UDC SWISH-SWAL SCH ×2 (18:00→22:38)
[2018-08-08] MEDS: Amitriptyline 100 MG Tablet PO SCH (22:37)
[2018-08-08] MEDS: Zolpidem Tartrate 5 MG Tablet PO PRN (22:38)
[2018-08-09] MEDS: Heparin - SQ 10,000 UNITS/ML Vial SQ SCH ×3 (06:02→21:13)
[2018-08-09] MEDS: Sod Chloride 0.9% Inj 1,000 ML IV.CONT SCH ×2 (06:02→12:18)
--- NOTE | 2018-08-09 09:09 | P.PNPL ---
Subjective Interval history: 38 YOAA female with HIV,Br asthma with SOB,Wheezing has back pain No Fever Slept better Breathing better C/o pain in the throat has mild wheezing Physical Exam Vital signs: Vital Signs 08/08/18 12:00 08/08/18 12:42 08/08/18 16:00 Temperature 98.1 F 97.4 F L Pulse Rate 92 H 108 H 98 H Respiratory Rate 22 18 20 Blood Pressure 135/83 150/94 H Pulse Oximetry 94 L 93 L 08/08/18 16:21 08/08/18 19:55 08/08/18 20:00 Temperature 98.0 F Pulse Rate 94 H 96 H 87 Respiratory Rate 18 16 20 Blood Pressure 156/93 H Pulse Oximetry 97 08/09/18 00:00 08/09/18 00:24 08/09/18 04:00 Temperature 98.2 F 97.9 F Pulse Rate 98 H 101 H 90 Respiratory Rate 20 18 20 Blood Pressure 146/91 H 140/99 H Pulse Oximetry 95 93 L 08/09/18 07:57 08/09/18 08:00 Temperature 97.7 F Pulse Rate 94 H 94 H Respiratory Rate 18 22 Blood Pressure 144/99 H Pulse Oximetry 94 L Intake & Output 08/08/18 08/09/18 08/09/18 18:59 06:59 18:59 Intake Total 1000 / 1000 1760 / 1760 Balance 1000 / 1000 1760 / 1760 Weight 97.7 kg Intake: IV 1000 / 1000 1100 / 1100 NS Inj 1,000 ML @ 42 mls/hr IV. 1000 / 1000 1000 / 1000 CONT .[id number] GUILLERMO Rx#:[id number] Rocephin Inj 1,000 MG In NS Inj 100 / 100 100 ML @ 200 mls/hr IV.SIG Q24H GUILLERMO Rx#:[id number] Oral 660 / 660 Other: # Voids 3 Date of Last Bowel Movement 08/05/18 08/05/18 # Bowel Movements 1 GENERAL: WBWn NAD SKIN: Warm and dry. HEAD: Normocephalic. has oral thrush EYES: No scleral icterus. No injection or drainage. NECK: Supple, trachea midline. No JVD or lymphadenopathy. CARDIOVASCULAR: Regular rate and rhythm without murmurs, gallops, or rubs. RESPIRATORY: Breath sounds equal bilaterally. No accessory muscle use. had end exp rhonchi GASTROINTESTINAL: Abdomen soft, non-tender, nondistended. MUSCULOSKELETAL: No cyanosis, or edema. BACK: Nontender without obvious deformity. No CVA tenderness. Assessment and Plan - Plan IMPRESSION: 1. Bronchial asthma exacerbation. 2. Left upper lobe infiltrate. 3. Human immunodeficiency virus disease. 4. Hypertension. 5. Obesity. 6. Oral thrush PLAN: Aerosol nebs Heparin 5000 IU q 12 hrs Cont Abx Rocephin Symbicort 2 puffs bid Stable to tr to floor Stable on RA Check PFT Prednisone 20 mg bid Nystatin S&S Add Diflucan
[2018-08-09] MEDS: Gabapentin 300 MG Capsule PO SCH ×3 (10:50→17:59)
[2018-08-09] MEDS: predniSONE 10 MG Tablet PO SCH ×2 (10:50→20:45)
[2018-08-09] MEDS: Lisinopril 10 MG Tablet PO SCH (10:51)
[2018-08-09] MEDS: Pantoprazole Sodium 20 MG DR Tablet PO SCH (10:51)
[2018-08-09] MEDS: Folic Acid 1 MG Tablet PO SCH (10:53)
[2018-08-09] MEDS: Nystatin Liq 500,000 UNIT/5 ML UDC SWISH-SWAL SCH ×4 (10:53→20:44)
[2018-08-09] MEDS: Ferrous Sulfate 325 MG Tablet PO SCH (10:53)
[2018-08-09] MEDS: Budesonide-Formoterol 160/4.5 MCG 6 GM Inhaler INH SCH ×2 (11:02→20:46)
[2018-08-09 12:07] LABS: Hematocrit 37.1 % (35.0-46.0); Hemoglobin 12.5 gm/dL (11.6-15.3); Mean Corpuscular HGB Conc 33.6 % (32.0-36.0); Mean Corpuscular Hemoglobin 31.5 pg (27.0-34.0); Mean Corpuscular Volume 93.9 fL (80.0-100.0); Mean Platelet Volume 8.1 fL (7.0-11.0); Platelet Count 220 th/mm3 (150-450); Red Blood Count 3.96 mil/mm3 (4.00-5.30); White Blood Count 17.8 th/mm3 (4.0-11.0)
[2018-08-09] MEDS: Acetaminophen 325 MG Tablet PO PRN ×2 (12:20→17:59)
[2018-08-09 13:15] LABS: Lymphocytes 4 % (9-44); Metamyelocytes 7 % (0-1); Monocytes 4 % (0-8); Myelocytes 7 % (0-0); Promyelocyte 1 % (0-0); Tallied Nucleated RBC 1 (0-0)
[2018-08-09 13:16] LABS: Platelet Estimate Normal (Normal); Platelet Morphology Normal (Normal); RBC Morphology Normal (Normal)
--- NOTE | 2018-08-09 15:34 | P.PNIM ---
Physical Exam Vital signs: Last Vital Signs Temp 97.8 F 08/09/18 12:00 Pulse 97 H 08/09/18 15:17 Resp 18 08/09/18 15:17 BP 120/81 08/09/18 12:00 Pulse Ox 95 08/09/18 12:00 Intake & Output 08/07/18 08/08/18 08/09/18 08/10/18 06:59 06:59 06:59 06:59 Intake Total 1350 / 1350 1250 / 1250 2760 / 2760 1000 / 1000 Balance 1350 / 1350 1250 / 1250 2760 / 2760 1000 / 1000 Weight 93.2 kg 97.7 kg 97.7 kg Narrative: GENERAL: Well-developed, well-nourished young looking female in no apparent distress SKIN: Warm and dry. HEAD: Atraumatic. Normocephalic. EYES: Pupils equal and round. No scleral icterus. No injection or drainage. ENT: No nasal bleeding or discharge. Mucous membranes pink and moist. NECK: Trachea midline. No JVD. CARDIOVASCULAR: Regular rate and rhythm. RESPIRATORY: No accessory muscle use. scattered Expiratory wheezes auscultation. Breath sounds equal bilaterally. Coarse cough GASTROINTESTINAL: Abdomen obese, soft, non-tender, nondistended. Hepatic and splenic margins not palpable. MUSCULOSKELETAL: Extremities without clubbing, cyanosis, or edema. No obvious deformities. NEUROLOGICAL: Awake and alert. No obvious cranial nerve deficits. Motor grossly within normal limits. Five out of 5 muscle strength in the arms and legs. Normal speech. PSYCHIATRIC: Appropriate mood and affect; insight and judgment normal. Results Labs CBC & Chem 7: 08/09/18 11:46 08/05/18 07:05 Labs: Microbiology 08/03/18 16:26 Blood - Peripheral Aerobic Blood Culture - Final No growth in 5 days 08/03/18 16:26 Blood - Peripheral Anaerobic Blood Culture - Final No growth in 5 days 08/03/18 16:20 Blood - Peripheral Aerobic Blood Culture - Final No growth in 5 days 08/03/18 16:20 Blood - Peripheral Anaerobic Blood Culture - Final No growth in 5 days Assessment and Plan (1) Migraine headache: Code(s): G43.909 - Migraine, unspecified, not intractable, without status migrainosus Status: Acute (2) Acute asthma exacerbation: Code(s): J45.901 - Unspecified asthma with (acute) exacerbation Status: Acute (3) Adjustment disorder with mixed anxiety and depressed mood: Code(s): F43.23 - Adjustment disorder with mixed anxiety and depressed mood Status: Acute Plan This is a 38 years old female being admitted for shortness of breath Bronchial Asthma Exacerbation Shortness of breath History of asthma left Upper Lobe infiltrate -Blood culture: No growth in 3 days -Nasal wash: Negative for flu -CXR unremarkable, CTA neg for PE but radiology read indicates possible pNA, - continue duo nebs treatment with dose now, and continue as needed albuterol, Atrovent and Symbicort -Changed Solu-Medrol to prednisone p.o. per pulmonology recommendation - pulmonology following, appreciate recommendations -Continue ceftriaxone IV antibiotic, discontinued Zithromax -awaiting PFT results -monitor Respiratory status Oral Thrush -Started on nystatin swish and swallow -Started on Diflucan -Oral care ,monitor response Hypertension Blood pressure elevated, no history of hypertension -Start on clonidine as needed -Start on on blood pressure medication, low-dose lisinopril -Monitor blood pressure, improving Lactic acidosis -unclear etiology at this point, slowly trending down -continue IVF -suspect this is secondary to antiretrovirals as opposed to any true sepsis -Monitor signs and symptoms Leukocytosis -Most likely secondary to steroid use -WBC trending down -no fever or chills -monitor CBC, follow trends Tachycardia Likely secondary to anxiety/ severe asthma exacerbation - continue home hydroxyzine, psychiatry consultation pending -CTA neg for PE, -2D-echo EF 55-60% -Discussed with pharmacy, only HIV medication with significant adverse effect that may cause tachycardia as patient's ritonavir and only 2% prevalence noted in postmarketing studies -HR improving Anxiety/Depression Adjustment Disorder -Psychiatry Consulted : appreciate recommendation -continue Paxil, increased Hydroxizine -increase Elavil to help with migraine prevention per Psych recommendation -monitor mental status HIV/AIDS Continue home medications, Duranavir and Etravirine - no opportunistic infections evident at this time -Follow up wit ID- dr Thi Nassar as an out patient Migraine headache -Acute on chronic -Continue amitriptyline -Give a dose of Imitrex now -As needed Tylenol -improving Monitor response DVT prophylaxis: Bilateral SCDs Discharge Planning: Discharge planning when cleared with pulmonology Progress Note: Quality VTE Deep Vein Thrombosis/Pulmonary Embolism Present on Admission: No _ (1) Migraine headache Qualifiers: Migraine type: Status migrainosus presence: Intractability: (2) Acute asthma exacerbation Qualifiers: Asthma persistence: persistent Asthma severity: severe Qualified Code(s): J45.51 - Severe persistent asthma with (acute) exacerbation
[2018-08-09] MEDS: Amitriptyline 100 MG Tablet PO SCH (20:45)
[2018-08-09] MEDS: Zolpidem Tartrate 5 MG Tablet PO PRN (22:18)
[2018-08-09] MEDS: guaiFENesin/Dextromethorphan 200 MG/20 MG 10 ML UDC PO PRN (22:18)
[2018-08-10] MEDS: Heparin - SQ 10,000 UNITS/ML Vial SQ SCH ×3 (05:55→22:24)
[2018-08-10] MEDS: predniSONE 10 MG Tablet PO SCH ×2 (08:31→20:20)
[2018-08-10] MEDS: Gabapentin 300 MG Capsule PO SCH ×3 (08:31→17:11)
[2018-08-10] MEDS: Nystatin Liq 500,000 UNIT/5 ML UDC SWISH-SWAL SCH ×4 (08:32→20:21)
[2018-08-10] MEDS: Pantoprazole Sodium 20 MG DR Tablet PO SCH (08:33)
[2018-08-10] MEDS: Ferrous Sulfate 325 MG Tablet PO SCH (08:34)
[2018-08-10] MEDS: Lisinopril 10 MG Tablet PO SCH (08:34)
[2018-08-10] MEDS: Folic Acid 1 MG Tablet PO SCH (08:34)
[2018-08-10] MEDS: Budesonide-Formoterol 160/4.5 MCG 6 GM Inhaler INH SCH ×2 (08:36→20:21)
[2018-08-10] MEDS: Acetaminophen 325 MG Tablet PO PRN ×3 (08:41→17:11)
[2018-08-10 09:14] LABS: Baso % (Auto) 0.3 % (0.0-2.0); Eos # (Auto) 0.1 th/mm3 (0.0-0.4); Eos % (Auto) 0.5 % (0.0-4.0); Hematocrit 40.9 % (35.0-46.0); Hemoglobin 13.5 gm/dL (11.6-15.3); Lymph # (Auto) 2.3 th/mm3 (1.0-4.8); Lymph % (Auto) 12.6 % (9.0-44.0); Mean Corpuscular Hemoglobin 31.2 pg (27.0-34.0); Mean Corpuscular Volume 94.6 fL (80.0-100.0); Mean Platelet Volume 8.1 fL (7.0-11.0); Mono # (Auto) 1.1 th/mm3 (0.0-0.9); Mono % (Auto) 6.4 % (0.0-8.0); Neut # (Auto) 14.4 th/mm3 (1.8-7.7); Neut % (Auto) 80.2 % (16.0-70.0); Platelet Count 236 th/mm3 (150-450); Red Blood Count 4.32 mil/mm3 (4.00-5.30); Red Cell Distribution Width 15.2 % (11.6-17.2); White Blood Count 17.9 th/mm3 (4.0-11.0)
[2018-08-10 10:15] LABS: Eosinophils 1 % (0-4); Lymphocytes 7 % (9-44); Metamyelocytes 3 % (0-1); Monocytes 8 % (0-8); Myelocytes 1 % (0-0); Platelet Estimate Normal (Normal); Platelet Morphology Normal (Normal); RBC Morphology Normal (Normal); Tallied Nucleated RBC 1 (0-0)
--- NOTE | 2018-08-10 10:34 | P.PNIM ---
Subjective Interval history: Follow-up bronchial asthma/asthma exacerbation, shortness of breath, wheezes, HIV, and migraine headache. Patient seen and examined laying in bed, patient complaint of sore throat and getting tired. Patient stated feeling slightly better other than the sore throat. Patient denies any headache or dizziness, denies any chest pain or shortness of breath. However stated some shortness of breath and easily gets tired when moving around. Patient denies any fever or chills. Patient denies any abdominal pain, nausea, vomiting, diarrhea or constipation. Physical Exam Vital signs: Last Vital Signs Temp 97.8 F 08/09/18 12:00 Pulse 97 H 08/09/18 15:17 Resp 18 08/09/18 15:17 BP 120/81 08/09/18 12:00 Pulse Ox 95 08/09/18 12:00 Intake & Output 08/07/18 08/08/18 08/09/18 08/10/18 06:59 06:59 06:59 06:59 Intake Total 1350 / 1350 1250 / 1250 2760 / 2760 1000 / 1000 Balance 1350 / 1350 1250 / 1250 2760 / 2760 1000 / 1000 Weight 93.2 kg 97.7 kg 97.7 kg Narrative: GENERAL: Well-developed, well-nourished young looking female in no apparent distress SKIN: Warm and dry. HEAD: Atraumatic. Normocephalic. EYES: Pupils equal and round. No scleral icterus. No injection or drainage. ENT: No nasal bleeding or discharge. slight oral white thrush, at back of the toungue NECK: Trachea midline. No JVD. CARDIOVASCULAR: Regular rate and rhythm. RESPIRATORY: No accessory muscle use. scattered slight Expiratory wheezes auscultation. Breath sounds equal bilaterally. Coarse cough GASTROINTESTINAL: Abdomen obese, soft, non-tender, nondistended. Hepatic and splenic margins not palpable. MUSCULOSKELETAL: Extremities without clubbing, cyanosis, or edema. No obvious deformities. NEUROLOGICAL: Awake and alert. No obvious cranial nerve deficits. Motor grossly within normal limits. Five out of 5 muscle strength in the arms and legs. Normal speech. PSYCHIATRIC: Appropriate mood and affect; insight and judgment normal. Results Labs CBC & Chem 7: 08/10/18 08:40 08/05/18 07:05 Assessment and Plan (1) Migraine headache: Code(s): G43.909 - Migraine, unspecified, not intractable, without status migrainosus Status: Acute (2) Acute asthma exacerbation: Code(s): J45.901 - Unspecified asthma with (acute) exacerbation Status: Acute (3) Adjustment disorder with mixed anxiety and depressed mood: Code(s): F43.23 - Adjustment disorder with mixed anxiety and depressed mood Status: Acute Plan This is a 38 years old female being admitted for shortness of breath Bronchial Asthma Exacerbation Shortness of breath History of asthma left Upper Lobe infiltrate -Blood culture: No growth in 3 days -Nasal wash: Negative for flu -CXR unremarkable, CTA neg for PE but radiology read indicates possible pNA, - continue duo nebs treatment with dose now, and continue as needed albuterol, Atrovent and Symbicort -Changed Solu-Medrol to prednisone p.o. per pulmonology recommendation - pulmonology following, appreciate recommendations -Continue ceftriaxone IV antibiotic, discontinued Zithromax -awaiting PFT results -monitor Respiratory status Oral Thrush Sore Throat -continue nystatin swish and swallow -continue Diflucan -Oral care , pt instructed to wash /rinse mouth every after inhaler or breathing treatment, monitor response - add cepacol Hypertension Blood pressure elevated, no history of hypertension -Start on clonidine as needed -Start on on blood pressure medication, low-dose lisinopril -add prn clonidine for SBP > 160 or DBP > 90 -Monitor blood pressure -education on lifestyle changes, diet and weight loss, pt verbalized understanding Lactic acidosis -unclear etiology at this point, slowly trending down -continue IVF -suspect this is secondary to antiretrovirals as opposed to any true sepsis -Monitor signs and symptoms Leukocytosis -Most likely secondary to steroid use -WBC trending down -no fever or chills -monitor CBC, follow trends Tachycardia Likely secondary to anxiety/ severe asthma exacerbation - continue home hydroxyzine, psychiatry consultation pending -CTA neg for PE, -2D-echo EF 55-60% -Discussed with pharmacy, only HIV medication with significant adverse effect that may cause tachycardia as patient's ritonavir and only 2% prevalence noted in postmarketing studies -HR improving Anxiety/Depression Adjustment Disorder -Psychiatry Consulted : appreciate recommendation -continue Paxil, increased Hydroxyzine -increase Elavil to help with migraine prevention per Psych recommendation -monitor mental status HIV/AIDS Continue home medications, Duranavir and Etravirine - no opportunistic infections evident at this time -Follow up wit ID: Dr Thi Nassar as an out patient Migraine headache -Acute on chronic -Continue amitriptyline -Give a dose of Imitrex now -As needed Tylenol -improving Monitor response DVT prophylaxis: Bilateral SCDs Discharge Planning: Discharge planning when cleared with pulmonology Progress Note: Quality VTE Deep Vein Thrombosis/Pulmonary Embolism Present on Admission: No _ (1) Migraine headache Qualifiers: Intractability: Migraine type: Status migrainosus presence: (2) Acute asthma exacerbation Qualifiers: Asthma persistence: persistent Asthma severity: severe Qualified Code(s): J45.51 - Severe persistent asthma with (acute) exacerbation
[2018-08-10] MEDS: Sod Chloride 0.9% Inj 1,000 ML IV.CONT SCH (12:21)
[2018-08-10] MEDS: guaiFENesin/Dextromethorphan 200 MG/20 MG 10 ML UDC PO PRN ×2 (14:25→22:24)
[2018-08-10] MEDS ORDERED: Benzocaine/Menthol 15 MG/3.6 MG SF Lozenge BUCCAL PRN (16:21)
--- NOTE | 2018-08-10 16:25 | P.PNIM ---
Physical Exam Vital signs: Last Vital Signs Temp 97.6 F 08/10/18 11:51 Pulse 103 H 08/10/18 11:51 Resp 18 08/10/18 11:51 BP 103/63 08/10/18 11:51 Pulse Ox 96 08/10/18 11:51 Intake & Output 08/08/18 08/09/18 08/10/18 08/11/18 06:59 06:59 06:59 06:59 Intake Total 1250 / 1250 2760 / 2760 1100 / 1100 1000 / 1000 Balance 1250 / 1250 2760 / 2760 1100 / 1100 1000 / 1000 Weight 97.7 kg 97.7 kg 92.8 kg Narrative: GENERAL: Well-developed, well-nourished young looking female in no apparent distress SKIN: Warm and dry. HEAD: Atraumatic. Normocephalic. EYES: Pupils equal and round. No scleral icterus. No injection or drainage. ENT: No nasal bleeding or discharge. slight oral white thrush, at back of the tongue NECK: Trachea midline. No JVD. CARDIOVASCULAR: Regular rate and rhythm. RESPIRATORY: No accessory muscle use. lesser scattered slight Expiratory wheezes auscultation. Breath sounds equal bilaterally. Coarse cough GASTROINTESTINAL: Abdomen obese, soft, non-tender, nondistended. Hepatic and splenic margins not palpable. MUSCULOSKELETAL: Extremities without clubbing, cyanosis, or edema. No obvious deformities. NEUROLOGICAL: Awake and alert. No obvious cranial nerve deficits. Motor grossly within normal limits. Five out of 5 muscle strength in the arms and legs. Normal speech. PSYCHIATRIC: Appropriate mood and affect; insight and judgment normal. Results Labs CBC & Chem 7: 08/10/18 08:40 08/05/18 07:05 Assessment and Plan (1) Migraine headache: Code(s): G43.909 - Migraine, unspecified, not intractable, without status migrainosus Status: Acute (2) Acute asthma exacerbation: Code(s): J45.901 - Unspecified asthma with (acute) exacerbation Status: Acute (3) Adjustment disorder with mixed anxiety and depressed mood: Code(s): F43.23 - Adjustment disorder with mixed anxiety and depressed mood Status: Acute Plan This is a 38 years old female being admitted for shortness of breath Bronchial Asthma Exacerbation Shortness of breath History of asthma left Upper Lobe infiltrate -Blood culture: No growth in 3 days -Nasal wash: Negative for flu -CXR unremarkable, CTA neg for PE but radiology read indicates possible pNA, - continue duo nebs treatment with dose now, and continue as needed albuterol, Atrovent and Symbicort -Changed Solu-Medrol to prednisone p.o. per pulmonology recommendation - pulmonology following, appreciate recommendations -Continue ceftriaxone IV antibiotic, discontinued Zithromax -awaiting PFT results -monitor Respiratory status Oral Thrush Sore Throat -continue nystatin swish and swallow -continue Diflucan -Oral care , pt instructed to wash /rinse mouth every after inhaler or breathing treatment, monitor response - add cepacol, monitro response Hypertension Blood pressure elevated, no history of hypertension -Start on clonidine as needed -Start on on blood pressure medication, low-dose lisinopril -add prn clonidine for SBP > 160 or DBP > 90 -Monitor blood pressure, adjust medication as needed -education on lifestyle changes, diet and weight loss, pt verbalized understanding Lactic acidosis -unclear etiology at this point, slowly trending down -continue IVF -suspect this is secondary to antiretrovirals as opposed to any true sepsis -Monitor signs and symptoms Leukocytosis -Most likely secondary to steroid use -WBC trending down -no fever or chills -monitor CBC, follow trends Tachycardia Likely secondary to anxiety/ severe asthma exacerbation - continue home hydroxyzine, psychiatry consultation pending -CTA neg for PE, -2D-echo EF 55-60% -Discussed with pharmacy, only HIV medication with significant adverse effect that may cause tachycardia as patient's ritonavir and only 2% prevalence noted in postmarketing studies -HR improving Anxiety/Depression Adjustment Disorder -Psychiatry Consulted : appreciate recommendation -continue Paxil, increased Hydroxyzine -increase Elavil to help with migraine prevention per Psych recommendation -monitor mental status HIV/AIDS Continue home medications, Duranavir and Etravirine - no opportunistic infections evident at this time -Follow up wit ID: Dr Thi Nassar as an out patient Migraine headache -Acute on chronic -Continue amitriptyline -Give a dose of Imitrex now -As needed Tylenol -improving Monitor response DVT prophylaxis: Bilateral SCDs Discharge Planning: Discharge planning when cleared with pulmonology Progress Note: Quality VTE Deep Vein Thrombosis/Pulmonary Embolism Present on Admission: No _ (1) Migraine headache Qualifiers: Migraine type: Status migrainosus presence: Intractability: (2) Acute asthma exacerbation Qualifiers: Asthma persistence: persistent Asthma severity: severe Qualified Code(s): J45.51 - Severe persistent asthma with (acute) exacerbation
[2018-08-10] MEDS: Amitriptyline 100 MG Tablet PO SCH (20:20)
[2018-08-10] MEDS: Zolpidem Tartrate 5 MG Tablet PO PRN (22:24)
[2018-08-11] MEDS: guaiFENesin/Dextromethorphan 200 MG/20 MG 10 ML UDC PO PRN (06:27)
[2018-08-11] MEDS: Heparin - SQ 10,000 UNITS/ML Vial SQ SCH ×2 (06:27→13:51)
[2018-08-11] MEDS: Acetaminophen 325 MG Tablet PO PRN ×2 (06:27→13:49)
[2018-08-11 07:48] VITALS: RESP 20
[2018-08-11] MEDS: Gabapentin 300 MG Capsule PO SCH ×3 (09:31→17:55)
[2018-08-11] MEDS: Pantoprazole Sodium 20 MG DR Tablet PO SCH (09:32)
[2018-08-11] MEDS: predniSONE 10 MG Tablet PO SCH (09:32)
[2018-08-11] MEDS: Ferrous Sulfate 325 MG Tablet PO SCH (09:33)
[2018-08-11] MEDS: Nystatin Liq 500,000 UNIT/5 ML UDC SWISH-SWAL SCH ×3 (09:33→17:55)
[2018-08-11] MEDS: Lisinopril 10 MG Tablet PO SCH (09:34)
[2018-08-11] MEDS: Folic Acid 1 MG Tablet PO SCH (09:38)
[2018-08-11] MEDS: Budesonide-Formoterol 160/4.5 MCG 6 GM Inhaler INH SCH (09:38)
--- NOTE | 2018-08-11 10:34 | XR ---
EXAM DATE: 08/11/2018 10:26 AM EST AGE/SEX: 38 years / Female INDICATIONS: Shortness of breath and cough. CLINICAL DATA: This is the patient's subsequent encounter. Patient reports that signs and symptoms h ave been present for 1 week and indicates a pain score of 0/10. MEDICAL/SURGICAL HISTORY: Asthma. None. COMPARISON: [facility] [place], CHEST 2V PA&LAT, 08/02/2018. [facility] [place], CTA PULMONARY W CONTRAST W 3D, 08/03/2018. . FINDINGS: AP upright portable view of the chest and straight mild hypoinflation of the lungs. The lungs appear grossly clear. Heart size appears normal. Pulmonary vasculature is normal. Osseous structures are int act. CONCLUSION: Hypoinflation of the lungs without evidence of airspace consolidation. Recommend upright PA lateral v iews when clinically able. Electronically signed by: Melissa Leblanc MD Board Certified Radiologist 08/11/2018 10:33 AM E
[2018-08-11] MEDS: Sod Chloride 0.9% Inj 1,000 ML IV.CONT SCH (13:51)
--- NOTE | 2018-08-11 15:06 | P.DS ---
DS: Providers Date of admission: 08/03/18 17:07 Primary care physician: UNKNOWN Consults: 08/03/18 17:14 Consult to Pulmonology Routine Consulting Provider: Ermias Zhang Reason for Consultation: refractory dyspnea in HIV patient Notified:: Service Spoke with:: SELENA Date Notified:: 08/03/18 Time Notified:: 17:17 Ordering Provider: ADRIANE 08/04/18 20:24 Consult to Psychiatry Routine Consulting Provider: Valeriano Kelly Reason for Consultation: intractable anxiety causing tachycardia Notified:: Office Spoke with:: Bhaskar Date Notified:: 08/04/18 Time Notified:: 20:35 Ordering Provider: ADRIANE Brief History from admission: 38-year-old white female being admitted for asthma exacerbation Patient was in her usual state of health until 2 days ago when she began experiencing shortness of breath. This worsened with exertion, no relief with home inhalers. Went to her physician's office, was evaluated and instructed to come to the emergency department. Patient reports having URI like symptoms including a stuffy nose for about 1 week, denies any fevers or chills, reports a dry cough this week. She reports some posttussive emesis, otherwise has no nausea. In the emergency department she was found to be wheezing, tachycardic in the 110s. Underwent trial of 3 duo nebs to no significant relief. Given a dose of Decadron. Chest x-ray which I independently reviewed shows diffuse mild infiltrates in both bases but this could be simply due to a penetration technique. Patient was given Rocephin and azithromycin. Patient reports being compliant with her HIV medication regimen, says she had her "levels checked" a month ago and said that they were undetectable in the "good sense." DS: Diagnosis Discharge Diagnosis (1) Migraine headache: Status: Acute (2) Acute asthma exacerbation: Status: Acute (3) Adjustment disorder with mixed anxiety and depressed mood: Status: Acute DS: Summary This is a 38 years old female being admitted for shortness of breath, Bronchial Asthma Exacerbation, Shortness of breath, with History of asthma. CXRAY showed left Upper Lobe infiltrate, Blood culture: No growth in 3 days, Nasal wash: Negative for flu, CXR unremarkable, CTA neg for PE but radiology read indicates possible pNA. Medication managements includes duo nebs treatment with dose now, and albuterol, Atrovent and Symbicort, Solu-Medrol which was changed to prednisone p.o. per pulmonology recommendation. Pulmonology following, appreciate recommendations, to Continue ceftriaxone IV antibiotic, discontinued Zithromax, awaiting PFT results. During the course of admission, pt c/o Oral Thrush and Sore Throat, which was treated by nystatin swish and swallow and Diflucan Good Oral care recommended , pt instructed to wash /rinse mouth every after inhaler or breathing treatment and add cepacol with some relief. Pt also had episodes of Hypertension/Blood pressure elevated with no history of hypertension. Patient started on blood pressure medication, low-dose lisinopril and given education on lifestyle changes, diet and weight loss, pt verbalized understanding. Patient also had Leukocytosis, most likely secondary to steroid use,WBC trending down. Patient had Tachycardia on admission, Likely secondary to anxiety/ severe asthma exacerbation, CTA neg for PE, 2D-echo EF 55- 60%. Discussed with pharmacy, only HIV medication with significant adverse effect that may cause tachycardia as patient's ritonavir and only 2% prevalence noted in postmarketing studies. HR improved. Pt had hx of Anxiety/Depression adn Adjustment Disorder.Psychiatry Consulted : appreciate recommendation to continue Paxil, increased Hydroxyzine, increase Elavil to help with migraine prevention per Psych recommendation. Pt had Hx of HIV/AIDS with no opportunistic infections evident at this time. Continue home medications, Duranavir and Etravirine. Pt to Follow up wit ID: Dr Thi Nassar as an out patient. Pt also had Migraine headache, Acute on chronic. Continue amitriptyline and prn tylenol. Headache improved Pt will be discharged on a prednisone tapering dose and Zithromax with inhalers if cleared with pulmonology. Patient is to follow-up with primary care, pulmonology and infectious disease as an outpatient. Time spent discussing smoking cessation with patient: 3 to 10 minutes Time Spent with Patient Total time spent providing and/or coordinating discharge services: Greater than 30 minutes Quality: VTE Deep Vein Thrombosis/Pulmonary Embolism Present on Admission: No Exam Narrative Exam Narrative: Narrative: GENERAL: Well-developed, well-nourished young looking female in no apparent distress SKIN: Warm and dry. HEAD: Atraumatic. Normocephalic. EYES: Pupils equal and round. No scleral icterus. No injection or drainage. ENT: No nasal bleeding or discharge. slight oral white thrush, at back of the tongue NECK: Trachea midline. No JVD. CARDIOVASCULAR: Regular rate and rhythm. RESPIRATORY: No accessory muscle use. lesser scattered slight Expiratory wheezes auscultation. Breath sounds equal bilaterally. Coarse cough, with 95-97 % O2 sat in room air GASTROINTESTINAL: Abdomen obese, soft, non-tender, nondistended. Hepatic and splenic margins not palpable. MUSCULOSKELETAL: Extremities without clubbing, cyanosis, or edema. No obvious deformities. NEUROLOGICAL: Awake and alert. No obvious cranial nerve deficits. Motor grossly within normal limits. Five out of 5 muscle strength in the arms and legs. Normal speech. PSYCHIATRIC: Appropriate mood and affect; insight and judgment normal. Results Impressions ITS Impressions Chest CTA 08/03/18 00:00 CONCLUSION: 1. No evidence of pulmonary embolism. 2. Subsegmental infiltrate left upper lobe. Chest X-Ray 08/11/18 00:00 CONCLUSION: Hypoinflation of the lungs without evidence of airspace consolidation. Recommend upright PA lateral views when clinically able. Discharge Plan Discharge Disposition Patient Disposition: Discharge Home Discharge Order Discharge Orders: Discharge Order (Routine); Ordered 08/11/18 Ordered By: Teresa Beckman Discharge Details Discharge Comment: Discharge when cleared with process improvement engineer Physicians Team Primary Care Provider: UNKNOWN, Attending Provider: Sheryl Ge Other Providers: Ermias Zhang ; Valeriano Kelly Rxs /Orders / Referrals /Forms Prescriptions: New nystatin 100,000 unit/mL Suspension 5 ml SWISH-SWAL QID 10 Days Qty: 200 RF: 0 fluconazole 200 mg Tablet 200 mg PO DAILY 5 Days Qty: 5 RF: 0 lisinopril 10 mg Tablet 5 mg PO DAILY Qty: 30 RF: 0 ipratropium bromide 0.02 % Solution 0.5 mg NEB Q2HR NEB PRN (Reason: sob) Qty: 360 RF: 0 budesonide-formoterol [Symbicort] 160-4.5 mcg/actuation Hfa Aerosol Inhaler 2 puff INH BID Qty: 1 RF: 0 benzocaine-menthol [Cepacol Sore Throat (rand-men)] 15-3.6 mg Lozenge 1 zac buccal Q2H PRN (Reason: Sore Throat) Qty: 30 RF: 0 prednisone 10 mg Tablet 20 mg PO BID 12 Days Qty: 23 RF: 0 albuterol sulfate 90 mcg/actuation HFA aerosol inhaler 2 inh INHALATION Q4-6H PRN (Reason: shortness of breath or wheezing) 30 Days Qty: 8 RF: 0 dextromethorphan-guaifenesin 10-100 mg/5 mL Syrup 10 ml PO Q6H PRN (Reason: Cough) 7 Days Qty: 280 RF: 0 azithromycin 250 mg tablet See Label Instructions .ROUTE .COMPLEX Qty: 6 RF: 0 Continue omeprazole 20 mg Tablet,Delayed Release (Dr/Ec) 20 mg PO DAILY RF: 0 ritonavir [Norvir] 100 mg Tablet 100 mg PO DAILY RF: 0 etravirine [Intelence] 200 mg Tablet 200 mg PO BID RF: 0 atorvastatin 20 mg Tablet 20 mg PO DAILY RF: 0 folic acid 1 mg Tablet 1 mg PO DAILY RF: 0 ferrous sulfate [iron] 325 mg (65 mg iron) Tablet 325 mg PO DAILY RF: 0 raltegravir [Isentress] 400 mg Tablet 400 mg PO BID RF: 0 darunavir ethanolate [Prezista] 800 mg Tablet 800 mg PO DAILY RF: 0 No Action ondansetron HCl [Zofran] 4 mg Tablet 4 mg PO TID PRN (Reason: Nausea) RF: 0 paroxetine mesylate 20 mg Tablet 20 mg PO DAILY RF: 0 amitriptyline 50 mg Tablet 50 mg PO DAILY RF: 0 hydroxyzine HCl 50 mg Tablet 50 mg PO HS RF: 0 hydroxyzine HCl 10 mg Tablet 10 mg PO BID RF: 0 gabapentin 600 mg tablet 600 mg PO TID RF: 0 Referrals: Ermias Zhang MD [Physician] - See Instructions (Follow-up in 1 week) Primary Care Physici,No [Family Provider] - See Instructions (F/U [facility] in 1 week- Dr Thi Nassar Follow-up with primary care in 3 days - Lia Ramirez) UNKNOWN, [Primary Care Provider] - See Instructions Discharge Instructions Patient Printed Instructions: Lisinopril (By mouth), Albuterol (By breathing), Prednisone (By mouth), Dextromethorphan (By mouth), Nystatin (By mouth), Fluconazole (By mouth), Ritonavir (By mouth), Benzocaine (By mouth), Budesonide/ Formoterol (By breathing) Status ED Status: Left Department
[2018-08-11 15:36] VITALS: PULSE 115
[2018-08-11 17:29] VITALS: BP 123/86; TEMP 97.8; O2SAT 94
[2018-08-11] MEDS ORDERED: Neomycin/Polymyx/HC Otic Soln 200 DROP/10 ML Bottle EACH EAR SCH (18:00)
== END 2018-08-11 21:01 | disposition home or self-care (01) ==
LOC: NEPE 11:38 → NEDA 14:52 → INTOOBSV 14:52 → NEPFCDU 19:27 → HIMC 08-03 18:10 → N05 08-06 01:52
PROVIDERS: ADMIT Hospitalist; ATTEND Hospitalist
DX: G62.9 Polyneuropathy, unspecified; B20 Human immunodeficiency virus [HIV] disease; Z81.8 Family history of other mental and behavioral disorders; G43.409 Hemiplegic migraine, not intractable, without status migrainosus; E66.9 Obesity, unspecified; B37.0 Candidal stomatitis; J45.51 Severe persistent asthma with (acute) exacerbation; Z68.37 Body mass index [BMI] 37.0-37.9, adult; F43.23 Adjustment disorder with mixed anxiety and depressed mood; Z91.410 Personal history of adult physical and sexual abuse; E78.5 Hyperlipidemia, unspecified; D72.828 Other elevated white blood cell count; T38.0X5A Adverse effect of glucocorticoids and synthetic analogues, initial encounter; R00.0 Tachycardia, unspecified; J06.9 Acute upper respiratory infection, unspecified; E87.2 Acidosis; I10 Essential (primary) hypertension